=== PATIENT | male | born 1950 | race Caucasian/White ===

== ENCOUNTER 2022-12-09 11:08 | Inpatient (IN) ==
[2022-12-09] MEDS ORDERED: SODIUM CHLORIDE 0.9% 250 ML IV PRN (15:03)
[2022-12-09 15:33] LABS: Basophils # (auto) 0.05 K/uL (0-0.2); Basophils % (auto) 0.5 %; Eosinophils # (auto) 0.09 K/uL (0-0.50); Eosinophils % (auto) 0.9 %; Hemoglobin 8.3 g/dl (14.0-18.0); Immature Granulocytes # (auto) 0.04 K/uL (0.01-0.20); Immature Granulocytes % (auto) 0.4 %; Lymphocytes # (auto) 0.84 K/uL (1.2-3.4); Lymphocytes % (auto) 8.3 %; Mean Corpuscular Hemoglobin 28.2 pg (25.0-34.0); Mean Corpuscular Hgb Conc 31.9 g/dL (32.0-36.0); Mean Corpuscular Volume 88.4 fL (80.0-100.0); Mean Platelet Volume 12.4 fL (9.4-12.4); Monocytes # (auto) 0.75 K/uL (0.11-0.59); Monocytes % (auto) 7.4 %; Neutrophils # (auto) 8.34 K/uL (1.40-6.50); Neutrophils % (auto) 82.5 %; Platelet Count 122 K/uL (130-400); RDW Coefficient of Variation 15.4 % (11.5-14.5); RDW Standard Deviation 49.1 fL (36.4-46.3); Red Blood Count 2.94 M/uL (4.70-6.10); White Blood Count 10.11 K/ul (4.8-10.8)
--- NOTE | 2022-12-09 15:40 | History & Physical Report ---
Date of Service December 09, 2022 Assessment & Plan (1) Acute GI bleeding: Plan: Secondary to prednisone, Eliquis. Not completely clear why he continues to be more anemic if not taking these for over a week however. Pantoprazole IV drip Bright red blood per [facility] note although pt reports black stool FOB pending Consult gastroenterology (2) Acute blood loss anemia: Plan: Hgb q6h, Aim Hgb > 8 in setting of acute GI bleed Iron studies, B12, folate, retic count, LDH, haptoglobin with AM labs (3) Hematuria: Plan: 2 days of waking up with blood in front of underwear but not present on urination during the day - pt adamant this is not from his bowel UA at [facility] was positive for blood and RBCs No recent maloney cath UA + micro with reflex culture ?Paroxysmal nocturnal hematuria - will get LDH/haptoglobin/retic with AM labs (4) LV (left ventricular) mural thrombus: Plan: Reportedly no longer there on repeat TTE at [facility] on hold (5) HFrEF (heart failure with reduced ejection fraction): Plan: No longer on Entresto since his GI bleed Continue metoprolol succinate 25mg PO daily Slow IV fluids, CXR to assess fluid status, if getting hypoxic stop IV fluids (6) Gout: Plan: Prednisone and indomethacin on hold No active gout flare noted on exam - left achilles tendon erythema appears much more consistent with achilles tendonitis (7) Achilles tendinitis, left leg: Plan: ice as needed, avoid NSAIDs (8) CAD (coronary artery disease): Plan: Hx CABG ASA, Eliquis on hold due to acute GI bleed (9) Hypothyroidism: Plan: TSH with AM labs Continue levothyroxine 50mcg PO daily Plan VTE Prophylaxis - SCDs Diet - NPO Disposition - admit to PCU Admission and Anticipated Discharge Date Admission Date: December 09, 2022 History of Present Illness Chief Complaint: GI bleed, shortness of breath, generalized weakness Primary Care Provider: NO PCP Leroy Donahue is a 72 year old male who presents as a direct admission from [facility] due to acute upper GI bleed. Planned transfer to [place] or [place] due to lack of gastroenterology coverage but given lack of beds at those institutions and 21 hours in [facility] without GI coverage I accepted the patient to [facility]. Initial symptoms started 2-3 weeks ago with increasing fatigue and shortness of breath after restarting Eliquis for an LV thrombus 4 weeks ago (November 01). He also started prednisone 3 weeks ago (November 20) for gout diagnosis of his left ankle and finger although this was not confirmed on aspiration of the joint. His left ankle which he refers to as gout incidentally appears much more consistent with Achilles tendonitis. 8 days ago his daughter encouraged him to go to the emergency room at [place] as he had become so weak he could hardly make it into her house. He was diagnosed with acute blood loss anemia with hemoglobin 6.2 and transfused 3 units of packed red blood cells while awaiting transfer to [facility] 48 hours later. He underwent EGD on December 03 (6 days ago) and was found to have mild gastritis with nonbleeding gastric ulcers per discharge summary although the EGD report was not provided with ER transfer paperwork to review. Per patient he required 2 further units of blood one prior and one after EGD. Eliquis supposedly reinitiated prior to discharge per discharge summary however not mentioned on his med list and patient does not remember getting this. He was discharged on December 06 (3 days ago) with a hemoglobin 8.0. Discharge instructions from patient say to continue Eliquis, aspirin and prednisone although the patient reports he appropriately did not take these. He was started on pantoprazole 40mg PO BID. Despite this he became more fatigued and short of breath therefore returned to the ER on December 08 (yesterday) with hemoglobin 6.9. He received 2 units packed red blood cells with repeat hemoglobin 7.7. He was treated with IV pantoprazole bolus and drip. On review of external med rec after history taken I note he was prescribed colchicine on December 07 but I am unclear if he actually took this. The patient denies any history of liver cirrhosis. Last colonoscopy by Fabricio queen 1 year ago - unknown results. Allergies Allergy/AdvReac Type Severity Reaction Status Date / Time clopidogrel [From Plavix] Allergy Unknown Verified 12/09/22 15:50 simvastatin [From Zocor] Allergy Unknown Verified 12/09/22 15:52 zocor AdvReac Mild Unknown Uncoded 12/09/22 15:52 Home Medications Medication Instructions Recorded Confirmed Type apixaban 5 mg tablet (Eliquis) 5 mg BID 12/09/22 12/09/22 History aspirin 81 mg tablet,delayed 81 mg PO DAILY 12/09/22 12/09/22 History release (Enteric Coated Aspirin) atorvastatin 40 mg tablet 40 mg PO HS 12/09/22 12/09/22 History cholecalciferol (vitamin D3) 250 500 mcg PO DAILY 12/09/22 12/09/22 History mcg (10,000 unit) tablet coconut oil 1,000 mg capsule 1,000 mg PO DAILY 12/09/22 12/09/22 History cyanocobalamin (vitamin B-12) 1,000 mcg PO DAILY 12/09/22 12/09/22 History 1,000 mcg capsule empagliflozin 10 mg tablet 10 mg PO DAILY 12/09/22 12/09/22 History (Jardiance) ferrous sulfate 325 mg (65 mg 325 mg PO Q OTHER DAY 12/09/22 12/09/22 History iron) capsule,extended release fluticasone propionate 50 2 spray intranasal DAILY 12/09/22 12/09/22 History mcg/actuation nasal spray,suspension furosemide 40 mg tablet 40 mg PO DAILY 12/09/22 12/09/22 History indomethacin 25 mg capsule 25 mg PO TID PRN Pain 12/09/22 12/09/22 History levothyroxine 50 mcg tablet 50 mcg PO DAILY 12/09/22 12/09/22 History (Synthroid) magnesium oxide 400 mg PO BID 12/09/22 12/09/22 History metoprolol succinate 25 mg 25 mg PO DAILY 12/09/22 12/09/22 History tablet,extended release 24 hr pantoprazole 40 mg tablet,delayed 40 mg PO DAILY 12/09/22 12/09/22 History release prednisone 20 mg tablet 20 mg PO DAILY 12/09/22 12/09/22 History sacubitril 24 mg-valsartan 26 mg 1 tab PO BID 12/09/22 12/09/22 History tablet (Entresto) Past Med/Surg History Medical History (Updated 12/09/22 @ 23:37 by Nikko Lange MD) Gout HFrEF (heart failure with reduced ejection fraction) Hypothyroidism Surgical History (Updated 12/09/22 @ 19:25 by Gerardo Ayala PA-C) AICD (automatic cardioverter/defibrillator) present H/O esophagogastroduodenoscopy S/P CABG (coronary artery bypass graft) Social History Smoking Status: Former smoker Smoking End Date: quit 29 years ago; Second Hand Exposure: No; Tobacco Cessation Education Requested by Patient: No Hx Alcohol Use: No Hx Substance Use: No Preferred Language: Lao Communication Ability: Effective Chief Security Officer Required: No Beliefs That Will Affect Care: None Current Living Situation: Alone Other Information That Helps Us Care for You: No Feels Safe at Home: Yes Safety Concerns: Feels Safe At This Time Assistive Devices: Denture - Upper Review of Systems Review of Systems: All systems reviewed & are unremarkable except as noted in HPI & below Hematuria without other urinary symptoms for the last 2 days Physical Exam Constitutional: well developed; + not well nourished and no acute distress Eyes: + conjunctival abnormality (pale) ENMT: external ear and nose normal, oropharynx normal Neck: trachea midline, no thyromegaly Respiratory: normal respiratory effort, lungs clear to auscultation Cardiovascular: RRR, no murmur, no edema Gastrointestinal (Abdomen): normal bowel sounds, soft, nontender, no hepatosplenomegaly Musculoskeletal: no cyanosis or clubbing, extremities motor strength 5/5 Left Achilles tendon erythema and pain Skin: no rashes, warm and dry + pallor Neurologic: moves all extremities and awake; not confused Psychiatric: A+Ox3, euthymic affect Results & Data Results & Data Vital Signs (Past 12 Hours) Vital Signs Temp Pulse Resp BP Pulse Ox O2 Del Method 12/09/22 14:37 36.3 C L 96 H 16 116/56 L 100 Room Air Laboratory Results Abnormal lab results 12/09/22 12/09/22 12/09/22 Range/Units 15:09 15:09 15:09 RBC 2.94 L (4.70-6.10) M/uL Hgb 8.3 L (14.0-18.0) g/dl Hct 26.0 L (42.0-52.0) % MCHC 31.9 L (32.0-36.0) g/dL RDW Std Deviation 49.1 H (36.4-46.3) fL RDW Coeff of Gena 15.4 H (11.5-14.5) % Plt Count 122 L (130-400) K/uL Neut # (Auto) 8.34 H (1.40-6.50) K/uL Lymph # (Auto) 0.84 L (1.2-3.4) K/uL Knott # (Auto) 0.75 H (0.11-0.59) K/uL Chloride 110 H (98-107) mmol/L BUN/Creatinine Ratio 25.0 H (10-20) Calcium 8.1 L (8.6-10.3) mg/dl Total Bilirubin 1.3 H (0.2-1.0) mg/dl Total Protein 5.2 L (6.0-8.3) gm/dl Albumin 3.1 L (3.4-5.0) gm/dl Globulin 2.1 L (2.5-4.0) gm/dl Crossmatch See Detail Code Status & VTE Plan Code Status All treatment outside of a cardiac arrest VTE Prophylaxis Plan VTE Prophylaxis will be ordered: Yes PG Care Time/CCT Total # of Minutes Spent Total Time Spent with Patient: Total time spent is greater than 50% in coordination of care (as documented) at patient's floor/unit and/or counseling patient: Coding Level of Care Code 20090 INT INP/OBS CARE 3/75MIN Diagnoses Acute GI bleeding K92.2 Acute blood loss anemia D62 Hematuria R31.9 LV (left ventricular) mural thrombus I51.3 HFrEF (heart failure with reduced ejection fraction) I50.20 Gout M10.9 Achilles tendinitis, left leg M76.62 CAD (coronary artery disease) I25.10 Hypothyroidism E03.9
[2022-12-09 15:50] LABS: Albumin Globulin Ratio 1.5 (0.9-2); Albumin Level 3.1 gm/dl (3.4-5.0); Bilirubin,Total 1.3 mg/dl (0.2-1.0); Calcium 8.1 mg/dl (8.6-10.3); Creatinine Clr Calc Pharmacy 84.5 ml/min; Est GFR (African American) 95.3 ml/min; Est GFR (Non-African American) 82.2 ml/min; Globulin 2.1 gm/dl (2.5-4.0); Magnesium 1.8 mg/dl (1.7-2.4); Phosphorus 3.1 mg/dl (2.5-4.9); Potassium 3.6 mmol/L (3.5-5.1); Total Protein 5.2 gm/dl (6.0-8.3)
[2022-12-09] MEDS ORDERED: Patient's HEIGHT &/or WEIGHT Needed SCH (16:00)
[2022-12-09 16:02] LABS: INR 1.1 (0.9-1.1); Partial Thromboplastin Ratio 0.9; Partial Thromboplastin Time 24.3 Seconds (21.0-31.0); Prothrombin Time 11.5 Seconds (9.0-12.0)
[2022-12-09] MEDS: LACTATED RINGER'S 1,000 ML IV SCH (16:55)
[2022-12-09] MEDS: PANTOprazole 40 MG in DEXTROSE 5% 100 ML IV SCH ×2 (16:55→20:51)
--- NOTE | 2022-12-09 19:36 | XRay Report ---
XR chest 1V portable HISTORY: 72 years-old Male CHF acute shortness of breath with possible heart failure COMPARISON: None TECHNIQUE: AP view of the chest FINDINGS: Cardiac silhouette is enlarged. Prior median sternotomy. Atherosclerosis of the aorta. Trace pleural effusions. Pulmonary vascular congestion. An electronic lead overlies left chest with battery pack in the lateral left chest wall. Bones appear grossly intact. IMPRESSION: Cardiomegaly with pulmonary vascular congestion and trace pleural effusions. ACT 112: Negative or not required by law. The above report was generated using voice recognition software. It may contain grammatical, syntax o r spelling errors. Electronically signed by: Shivam Conley M.D. 12/09/2022 7:35 PM
--- NOTE | 2022-12-09 19:39 | XRay Report ---
XR ankle LT min 3V routine HISTORY: 72 years-old Male requested by ortho, left achilles erythema COMPARISON: None TECHNIQUE: 3 views of the left ankle FINDINGS: Arterial calcifications. Moderate osteoarthritis. Moderate-sized enthesophytes of the calcaneus. Soft tissue thickening is noted within the region of the Achilles tendon. No acute fracture, dislocation or osseous erosions. IMPRESSION: 1. No acute osseous abnormality. 2. Enthesophytes of the calcaneus with soft tissue thickening noted within the region of the Achilles tendon. Correlate with patient history and physical exam findings in order to exclude tendinosis. ACT 112: Negative or not required by law. The above report was generated using voice recognition software. It may contain grammatical, syntax o r spelling errors. Electronically signed by: Shivam Conley M.D. 12/09/2022 7:37 PM
[2022-12-09] MEDS: ATORVASTATIN 40 MG TAB PO SCH (19:56)
--- NOTE | 2022-12-09 21:22 | Orthopedic Consultation ---
Date of Consultation December 09, 2022 Assessment & Plan (1) Achilles tendinitis, left leg: He has pain and tenderness to palpation directly along the Achilles tendon and the posterior aspect of his left ankle. This seems most consistent with Achilles tendinitis. 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 He denies any pain in his ankle joint currently. I would recommend Achilles tendon stretching and ice to help with his pain. I would normally also recommend anti-inflammatories, but he is unable to take these due to his GI bleed. No urgent orthopedic surgical intervention is required. He may weight-bear as tolerated on the left leg. He can follow-up on an outpatient basis as needed with [facility] (Dr. Bueno, Dr. Mirza). Orthopedics will sign off at this point. History of Present Illness Reason for Consultation: Left ankle pain Requesting Physician: Dr. Lange Attending Physician: Nikko Lange MD History of Present Illness Mr. Donahue is a 72-year-old male with left ankle pain. He states that he gets intermittent flareups of this pain about once a month for the past several years. He does have a history of gout in multiple other joints, and states that he is on gout medicines, but he does not know specifics of his medications. This recurrent pain is always in the posterior aspect of his left ankle. He does note that the first step of the day after sleep is usually quite painful for him. He is able to walk on this. He is currently admitted for a GI bleed. He has been transferred around to a few different hospitals over the past few days, but states that he was walking on this yesterday. He was just admitted to [facility] here today, and has not yet been out of bed yet today. Allergies Allergy/AdvReac Type Severity Reaction Status Date / Time clopidogrel [From Plavix] Allergy Unknown Verified 12/09/22 15:50 simvastatin [From Zocor] Allergy Unknown Verified 12/09/22 15:52 zocor AdvReac Mild Unknown Uncoded 12/09/22 15:52 Home Medications Medication Instructions Recorded Confirmed Type apixaban 5 mg tablet (Eliquis) 5 mg BID 12/09/22 12/09/22 History aspirin 81 mg tablet,delayed 81 mg PO DAILY 12/09/22 12/09/22 History release (Enteric Coated Aspirin) atorvastatin 40 mg tablet 40 mg PO HS 12/09/22 12/09/22 History cholecalciferol (vitamin D3) 250 500 mcg PO DAILY 12/09/22 12/09/22 History mcg (10,000 unit) tablet coconut oil 1,000 mg capsule 1,000 mg PO DAILY 12/09/22 12/09/22 History cyanocobalamin (vitamin B-12) 1,000 mcg PO DAILY 12/09/22 12/09/22 History 1,000 mcg capsule empagliflozin 10 mg tablet 10 mg PO DAILY 12/09/22 12/09/22 History (Jardiance) ferrous sulfate 325 mg (65 mg 325 mg PO Q OTHER DAY 12/09/22 12/09/22 History iron) capsule,extended release fluticasone propionate 50 2 spray intranasal DAILY 12/09/22 12/09/22 History mcg/actuation nasal spray,suspension furosemide 40 mg tablet 40 mg PO DAILY 12/09/22 12/09/22 History indomethacin 25 mg capsule 25 mg PO TID PRN Pain 12/09/22 12/09/22 History levothyroxine 50 mcg tablet 50 mcg PO DAILY 12/09/22 12/09/22 History (Synthroid) magnesium oxide 400 mg PO BID 12/09/22 12/09/22 History metoprolol succinate 25 mg 25 mg PO DAILY 12/09/22 12/09/22 History tablet,extended release 24 hr pantoprazole 40 mg tablet,delayed 40 mg PO DAILY 12/09/22 12/09/22 History release prednisone 20 mg tablet 20 mg PO DAILY 12/09/22 12/09/22 History sacubitril 24 mg-valsartan 26 mg 1 tab PO BID 12/09/22 12/09/22 History tablet (Entresto) Patient History Surgical History (Updated 12/09/22 @ 19:25 by Gerardo Ayala PA-C) AICD (automatic cardioverter/defibrillator) present H/O esophagogastroduodenoscopy S/P CABG (coronary artery bypass graft) Social History Smoking Status: Former smoker Smoking End Date: quit 29 years ago; Second Hand Exposure: No; Tobacco Cessation Education Requested by Patient: No Hx Alcohol Use: No Hx Substance Use: No Preferred Language: Macanese Communication Ability: Effective Donkey Doctor Required: No Beliefs That Will Affect Care: None Current Living Situation: Alone Other Information That Helps Us Care for You: No Feels Safe at Home: Yes Safety Concerns: Feels Safe At This Time Assistive Devices: Denture - Upper Physical Exam Physical Exam: Examination of the left ankle reveals no significant swelling or gross deformity. Specifically, no swelling around the ankle joint area. He does have some prominence over the medial malleolus that looks like it could be consistent with a gouty tophi. He denies any tenderness palpation in this area or along the anterior ankle joint line. All of his tenderness to palpation is directly along the Achilles tendon posteriorly. Minimal swelling and erythema over this area, no warmth. He does have reproduction of this pain with passive dorsiflexion of the ankle. Results & Data Vital Signs (Past 12 Hours) Vital Signs Temp Pulse Resp BP Pulse Ox O2 Del Method 12/09/22 19:47 37 C 101 H 20 118/58 L 97 Room Air 12/09/22 14:37 36.3 C L 96 H 16 116/56 L 100 Room Air Diagnostic Findings Left ankle x-rays obtained here today were independently interpreted by me. They show some scattered arthritis in the ankle joint and midfoot joints, but nothing terribly severe. There is a very small enthesophyte at the Achilles tendon insertion into the calcaneus, but no calcifications are seen along the Achilles tendon itself. Small Delia's deformity. There is obvious peripheral vascular disease, with calcifications seen in all 3 of his major ankle arteries.
[2022-12-09 22:00] LABS: Hematocrit (blood only) 27.2 % (42.0-52.0); Hemoglobin 8.6 g/dl (14.0-18.0)
[2022-12-09 22:22] LABS: Appearance Urine Clear (Clear); Bacteria Urine Automated Negative (Negative); Bilirubin Urine Negative (Negative); Blood Urine Negative (Negative); Color Urine Yellow; Epithelial Cell Urine Auto 0-5 /lpf (0-5); Glucose Urine UA 3+ (Negative); Ketones Urine 1+ (Negative); Leukocyte Esterase Urine Trace (Negative); Nitrite Urine Positive (Negative); Protein Urine Trace (Negative); RBC Urine Automated 0-4 /hpf (0-4); Specific Gravity Urine 1.028 (1.000-1.030); Urobilinogen Urine Negative (Negative); pH Urine 5.5 (4.5-7.5)
[2022-12-10] MEDS: PANTOprazole 40 MG in DEXTROSE 5% 100 ML IV SCH ×5 (01:54→21:53)
[2022-12-10 03:22] LABS: BUN Creatinine Ratio 22.2 (10-20); Creatinine Clr Calc Pharmacy 86.4 ml/min; Est GFR (African American) 97.9 ml/min; Est GFR (Non-African American) 84.4 ml/min; Potassium 3.7 mmol/L (3.5-5.1)
[2022-12-10 03:38] LABS: Hematocrit (blood only) 24.3 % (42.0-52.0); Hemoglobin 7.7 g/dl (14.0-18.0); Mean Corpuscular Hemoglobin 28.2 pg (25.0-34.0); Mean Corpuscular Hgb Conc 31.7 g/dL (32.0-36.0); Mean Platelet Volume 12.8 fL (9.4-12.4); Platelet Count 120 K/uL (130-400); RDW Coefficient of Variation 15.7 % (11.5-14.5); Red Blood Count 2.73 M/uL (4.70-6.10); White Blood Count 8.78 K/ul (4.8-10.8)
[2022-12-10 03:39] LABS: Basophils # (auto) 0.04 K/uL (0-0.2); Basophils % (auto) 0.5 %; Eosinophils # (auto) 0.11 K/uL (0-0.50); Eosinophils % (auto) 1.3 %; Immature Granulocytes # (auto) 0.05 K/uL (0.01-0.20); Immature Granulocytes % (auto) 0.6 %; Lymphocytes # (auto) 0.78 K/uL (1.2-3.4); Lymphocytes % (auto) 8.9 %; Monocytes # (auto) 0.73 K/uL (0.11-0.59); Monocytes % (auto) 8.3 %; Neutrophils # (auto) 7.07 K/uL (1.40-6.50); Neutrophils % (auto) 80.4 %; Poikilocytosis Present; Polychromasia 1+
[2022-12-10 03:43] LABS: Ferritin 41.4 ng/ml (8-388)
[2022-12-10] MEDS: LACTATED RINGER'S 1,000 ML IV SCH ×2 (03:50→18:29)
[2022-12-10] MEDS ORDERED: SODIUM CHLORIDE 0.9% 250 ML IV PRN (04:01)
[2022-12-10] MEDS: LEVOTHYROXINE SODIUM 50 MCG TABLET PO SCH (05:23)
[2022-12-10] MEDS: FLUTICASONE PROPIONATE NA SPR 16 GM BTL NAE SCH (07:58)
[2022-12-10] MEDS: METOPROLOL SUCC 25MG EXT REL TAB PO SCH (07:59)
[2022-12-10 09:21] LABS: Hematocrit (blood only) 26.8 % (42.0-52.0); Hemoglobin 8.7 g/dl (14.0-18.0)
--- NOTE | 2022-12-10 09:55 | Gastrointestinal Consultation ---
Date of Consultation December 10, 2022 Assessment & Plan (1) Anemia: (2) Acute blood loss anemia: (3) Melena: Plan Patient is a 72 y.o. male with a known history of PUD admitted with acute blood loss and anemia and melena. -NPO. -EGD today by Dr. Tripp for further evaluation. -Continue PPI ggt at 8mg/hr. -Continue supportive care. -Further recommendations will be made pending results of testing. Thank you for allowing us to participate in the care of this patient. If you have any questions or concerns, please do not hesitate to contact us. Supervising Physician Co-Signing Physician Notes Agree with KELLEY Middleton as above Abd: Soft, NT, ND, +BS Continue current therapy and supportive care Proceed with EGD now History of Present Illness Reason for Consultation: GIB Requesting Physician: Dr. Lange Attending Physician: Jame Morales History of Present Illness Patient is a 72 y.o. male with a history of CAD, CABG, LV thrombus and Gout admitted with acute blood loss anemia. He was prescribed Eliquis for the thrombus and Prednisone as well as Indomethacin for the gout. Endorses ASA use occasionally as well. These medications were discontinued one week ago at which time the GI bleeding began. He was admitted to [facility] in [place], [place] and had reportedly undergone an upper endoscopy with findings of non-bleeding gastric ulcers and gastritis. Has been prescribed PPI therapy but had returning symptoms of melena and was subsequently transferred from the ER at [facility] to [facility] due to lack of GI coverage. On arrival, he was found to have a H&H of 8.6/27.2 but did drop to 7.7/24.3. He was given 1 unit of PRBCs and repeat hemoglobin this morning was 8.7. Patient is NPO and has been started on a PPI ggt. Currently, he denies any abdominal pain, n/v, chest pain, palpitations, shortness of breath or overt GIB symptoms today. States he has not had a bm since admission. Allergies Allergy/AdvReac Type Severity Reaction Status Date / Time clopidogrel [From Plavix] Allergy Unknown Verified 12/09/22 15:50 simvastatin [From Zocor] AdvReac Unknown Verified 12/10/22 04:09 Home Medications Medication Instructions Recorded Confirmed Type apixaban 5 mg tablet (Eliquis) 5 mg BID 12/09/22 12/09/22 History aspirin 81 mg tablet,delayed 81 mg PO DAILY 12/09/22 12/09/22 History release (Enteric Coated Aspirin) atorvastatin 40 mg tablet 40 mg PO HS 12/09/22 12/09/22 History cholecalciferol (vitamin D3) 250 500 mcg PO DAILY 12/09/22 12/09/22 History mcg (10,000 unit) tablet coconut oil 1,000 mg capsule 1,000 mg PO DAILY 12/09/22 12/09/22 History cyanocobalamin (vitamin B-12) 1,000 mcg PO DAILY 12/09/22 12/09/22 History 1,000 mcg capsule empagliflozin 10 mg tablet 10 mg PO DAILY 12/09/22 12/09/22 History (Jardiance) ferrous sulfate 325 mg (65 mg 325 mg PO Q OTHER DAY 12/09/22 12/09/22 History iron) capsule,extended release fluticasone propionate 50 2 spray intranasal DAILY 12/09/22 12/09/22 History mcg/actuation nasal spray,suspension furosemide 40 mg tablet 40 mg PO DAILY 12/09/22 12/09/22 History indomethacin 25 mg capsule 25 mg PO TID PRN Pain 12/09/22 12/09/22 History levothyroxine 50 mcg tablet 50 mcg PO DAILY 12/09/22 12/09/22 History (Synthroid) magnesium oxide 400 mg PO BID 12/09/22 12/09/22 History metoprolol succinate 25 mg 25 mg PO DAILY 12/09/22 12/09/22 History tablet,extended release 24 hr pantoprazole 40 mg tablet,delayed 40 mg PO DAILY 12/09/22 12/09/22 History release prednisone 20 mg tablet 20 mg PO DAILY 12/09/22 12/09/22 History sacubitril 24 mg-valsartan 26 mg 1 tab PO BID 12/09/22 12/09/22 History tablet (Entresto) Patient History Medical History (Updated 12/10/22 @ 11:42 by Shamir Yeager MD) Encounter for pre-operative examination Gout HFrEF (heart failure with reduced ejection fraction) Hypothyroidism Surgical History AICD (automatic cardioverter/defibrillator) present H/O esophagogastroduodenoscopy S/P CABG (coronary artery bypass graft) Social History Smoking Status: Former smoker Smoking End Date: quit 29 years ago; Second Hand Exposure: No; Tobacco Cessation Education Requested by Patient: No Hx Alcohol Use: No Hx Substance Use: No Preferred Language: Armenian Communication Ability: Effective Dietary Assistant Required: No Beliefs That Will Affect Care: None Current Living Situation: Alone Other Information That Helps Us Care for You: No Feels Safe at Home: Yes Safety Concerns: Feels Safe At This Time Assistive Devices: Cane and Walker Review of Systems Constitutional: + fatigue Respiratory: as per Subjective / HPI Cardiovascular: as per Subjective / HPI Gastrointestinal: as per Subjective / HPI Physical Exam Constitutional: WD/WN, vitals as above Eyes: EOM intact bilaterally Neck: normal appearance Respiratory: normal respiratory effort, lungs clear to auscultation Cardiovascular: Rate/Rhythm: regular rate and regular rhythm Heart Sounds: no gallop and no murmur Gastrointestinal (Abdomen): normal bowel sounds, soft, nontender, no hepatosplenomegaly Inspection/Auscultation: abdomen not distended Musculoskeletal: Extremities: no cyanosis no lower extremity edema Skin: no rashes, warm and dry Neurologic: moves all extremities Psychiatric: A+Ox3, euthymic affect Results & Data Vital Signs (Past 12 Hours) Vital Signs Temp Pulse Pulse Resp BP BP Pulse Ox 12/10/22 08:35 36.8 C 91 H 18 154/65 H 97 12/10/22 08:52 86 12/10/22 08:38 91 H 18 154/65 H 97 12/10/22 06:22 36.8 C 12/10/22 06:20 123/64 12/10/22 05:50 36.8 C 133/72 12/10/22 05:35 37.0 C 97 H 16 123/62 99 12/10/22 05:15 37.1 C 84 16 119/63 98 12/10/22 03:18 36.7 C 100 H 16 149/71 H 99 12/09/22 22:30 100 H 12/09/22 22:30 37 C 87 20 114/53 L 97 O2 Del Method 12/10/22 08:35 12/10/22 08:52 12/10/22 08:38 Room Air 12/10/22 06:22 12/10/22 06:20 12/10/22 05:50 12/10/22 05:35 12/10/22 05:15 12/10/22 03:18 Room Air 12/09/22 22:30 12/09/22 22:30 Room Air Diagnostic Findings Laboratory Results WBC 8.78 K/ul (4.8-10.8) 12/10/22 02:47 RBC 2.73 M/uL (4.70-6.10) L 12/10/22 02:47 Hgb 8.7 g/dl (14.0-18.0) L 12/10/22 08:57 Hct 26.8 % (42.0-52.0) L 12/10/22 08:57 MCV 89.0 fL (80.0-100.0) 12/10/22 02:47 MCH 28.2 pg (25.0-34.0) 12/10/22 02:47 MCHC 31.7 g/dL (32.0-36.0) L 12/10/22 02:47 RDW Std Deviation 50.0 fL (36.4-46.3) H 12/10/22 02:47 RDW Coeff of Gena 15.7 % (11.5-14.5) H 12/10/22 02:47 Plt Count 120 K/uL (130-400) L 12/10/22 02:47 MPV 12.8 fL (9.4-12.4) H 12/10/22 02:47 Immature Gran % (Auto) 0.6 % 12/10/22 02:47 Neut % (Auto) 80.4 % 12/10/22 02:47 Lymph % (Auto) 8.9 % 12/10/22 02:47 [place] % (Auto) 8.3 % 12/10/22 02:47 Eos % (Auto) 1.3 % 12/10/22 02:47 Baso % (Auto) 0.5 % 12/10/22 02:47 Neut # (Auto) 7.07 K/uL (1.40-6.50) H 12/10/22 02:47 Lymph # (Auto) 0.78 K/uL (1.2-3.4) L 12/10/22 02:47 [place] # (Auto) 0.73 K/uL (0.11-0.59) H 12/10/22 02:47 Eos # (Auto) 0.11 K/uL (0-0.50) 12/10/22 02:47 Baso # (Auto) 0.04 K/uL (0-0.2) 12/10/22 02:47 Immature Gran # (Auto) 0.05 K/uL (0.01-0.20) 12/10/22 02:47 Polychromasia 1+ 12/10/22 02:47 Poikilocytosis Present 12/10/22 02:47 PT 11.5 Seconds (9.0-12.0) 12/09/22 15:09 INR 1.1 (0.9-1.1) 12/09/22 15:09 APTT 24.3 Seconds (21.0-31.0) 12/09/22 15:09 PTT Ratio 0.9 12/09/22 15:09 Sodium 138 mmol/L (136-145) 12/10/22 02:47 Potassium 3.7 mmol/L (3.5-5.1) 12/10/22 02:47 Chloride 111 mmol/L (98-107) H 12/10/22 02:47 Carbon Dioxide 24 mmol/L (21-32) 12/10/22 02:47 Anion Gap 3 (3-11) 12/10/22 02:47 BUN 20 mg/dl (6-23) 12/10/22 02:47 Creatinine 0.90 mg/dl (0.6-1.4) 12/10/22 02:47 Est Cr Clr Drug Dosing 86.4 ml/min 12/10/22 02:47 Est GFR ( Amer) 97.9 ml/min 12/10/22 02:47 Est GFR (Non-Af Amer) 84.4 ml/min 12/10/22 02:47 BUN/Creatinine Ratio 22.2 (10-20) H 12/10/22 02:47 Glucose 100 mg/dl (70-99(Fasting)) H 12/10/22 02:47 Calcium 8.0 mg/dl (8.6-10.3) L 12/10/22 02:47 Phosphorus 3.1 mg/dl (2.5-4.9) 12/09/22 15:09 Magnesium 1.8 mg/dl (1.7-2.4) 12/09/22 15:09 Iron 12 mcg/dl (35-175) L 12/10/22 02:47 TIBC 240 mcg/dl (250-450) L 12/10/22 02:47 Unsaturated IBC 228 mcg/dl (155-355) 12/10/22 02:47 Transferrin % Sat 5 % (20-50) L 12/10/22 02:47 Ferritin 41.4 ng/ml (8-388) 12/10/22 02:47 Total Bilirubin 1.3 mg/dl (0.2-1.0) H 12/09/22 15:09 AST 14 U/L (13-39) 12/09/22 15:09 ALT 11 U/L (7-52) 12/09/22 15:09 Alkaline Phosphatase 38 U/L (34-104) 12/09/22 15:09 Total Protein 5.2 gm/dl (6.0-8.3) L 12/09/22 15:09 Albumin 3.1 gm/dl (3.4-5.0) L 12/09/22 15:09 Globulin 2.1 gm/dl (2.5-4.0) L 12/09/22 15:09 Albumin/Globulin Ratio 1.5 (0.9-2) 12/09/22 15:09 Vitamin B12 710 pg/ml (180-914) 12/10/22 02:47 Folate 17.67 ng/ml (>5.38) 12/10/22 02:47 TSH 0.611 uIu/ml (0.300-4.500) 12/10/22 02:47 Urine Color Yellow 12/09/22 22:00 Urine Appearance Clear (Clear) 12/09/22 22:00 Urine pH 5.5 (4.5-7.5) 12/09/22 22:00 Ur Specific [place] 1.028 (1.000-1.030) 12/09/22 22:00 Urine Protein Trace (Negative) H 12/09/22 22:00 Urine Glucose (UA) 3+ (Negative) H 12/09/22 22:00 Urine Ketones 1+ (Negative) H 12/09/22 22:00 Urine Blood Negative (Negative) 12/09/22 22:00 Urine Nitrite Positive (Negative) A 12/09/22 22:00 Urine Bilirubin Negative (Negative) 12/09/22 22:00 Urine Urobilinogen Negative (Negative) 12/09/22 22:00 Ur Leukocyte Esterase Trace (Negative) H 12/09/22 22:00 Urine WBC (Auto) 10-30 /hpf (0-5) H 12/09/22 22:00 Urine RBC (Auto) 0-4 /hpf (0-4) 12/09/22 22:00 U Hyaline Cast (Auto) 1-5 /lpf (0-5) 12/09/22 22:00 U Epithel Cells (Auto) 0-5 /lpf (0-5) 12/09/22 22:00 Urine Bacteria (Auto) Negative (Negative) 12/09/22 22:00 Urine Yeast Not Reportable 12/09/22 22:00 Blood Type B Positive 12/09/22 15:09 Blood Type Recheck B Positive 12/09/22 16:13 Antibody Screen NEGATIVE 12/09/22 15:09 Crossmatch See Detail 12/09/22 15:09 Impressions Ankle X-Ray 12/09/22 18:38 XR ankle LT min 3V routine HISTORY: 72 years-old Male requested by ortho, left achilles erythema COMPARISON: None TECHNIQUE: 3 views of the left ankle FINDINGS: Arterial calcifications. Moderate osteoarthritis. Moderate-sized enthesophytes of the calcaneus. Soft tissue thickening is noted within the region of the Achilles tendon. No acute fracture, dislocation or osseous erosions. IMPRESSION: 1. No acute osseous abnormality. 2. Enthesophytes of the calcaneus with soft tissue thickening noted within the region of the Achilles tendon. Correlate with patient history and physical exam findings in order to exclude tendinosis. ACT 112: Negative or not required by law. The above report was generated using voice recognition software. It may contain grammatical, syntax or spelling errors. Electronically signed by: Shivam Conley M.D. 12/09/2022 7:37 PM Chest X-Ray 12/09/22 18:57 XR chest 1V portable HISTORY: 72 years-old Male CHF acute shortness of breath with possible heart failure COMPARISON: None TECHNIQUE: AP view of the chest FINDINGS: Cardiac silhouette is enlarged. Prior median sternotomy. Atherosclerosis of the aorta. Trace pleural effusions. Pulmonary vascular congestion. An electronic lead overlies left chest with battery pack in the lateral left chest wall. Bones appear grossly intact. IMPRESSION: Cardiomegaly with pulmonary vascular congestion and trace pleural effusions. ACT 112: Negative or not required by law. The above report was generated using voice recognition software. It may contain grammatical, syntax or spelling errors. Electronically signed by: Shivam Conley M.D. 12/09/2022 7:35 PM PG Care Time/CCT Total # of Minutes Spent Total Time Spent with Patient: Total time spent is greater than 50% in coordination of care (as documented) at patient's floor/unit and/or counseling patient: Coding Level of Care Code 57538 INT INP/OBS CARE 3/75MIN Diagnoses Anemia D64.9 Acute blood loss anemia D62 Melena K92.1
--- NOTE | 2022-12-10 11:25 | Anesthesiology Consultation ---
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 Consults Requested none History Surgery Operation Date: 12/10/22 18:15 Proposed Procedures p Esophagogastroduodenoscopy Dr Tripp - Damion Joseph Case, DO Height/Weight Height: 5 ft 11 in Weight: 97.9 kg Allergies Allergy/AdvReac Type Severity Reaction Status Date / Time clopidogrel [From Plavix] Allergy Unknown Verified 12/09/22 15:50 simvastatin [From Zocor] AdvReac Unknown Verified 12/10/22 04:09 Medications Home Medications Medication Instructions Recorded Confirmed Last Taken apixaban 5 mg tablet (Eliquis) 5 mg BID 12/09/22 12/09/22 11/29/22 aspirin 81 mg tablet,delayed 81 mg PO DAILY 12/09/22 12/09/22 11/29/22 release (Enteric Coated Aspirin) atorvastatin 40 mg tablet 40 mg PO HS 12/09/22 12/09/22 12/06/22 cholecalciferol (vitamin D3) 250 500 mcg PO DAILY 12/09/22 12/09/22 12/07/22 mcg (10,000 unit) tablet coconut oil 1,000 mg capsule 1,000 mg PO DAILY 12/09/22 12/09/22 12/07/22 cyanocobalamin (vitamin B-12) 1,000 mcg PO DAILY 12/09/22 12/09/22 12/07/22 1,000 mcg capsule empagliflozin 10 mg tablet 10 mg PO DAILY 12/09/22 12/09/22 12/07/22 (Jardiance) ferrous sulfate 325 mg (65 mg 325 mg PO Q OTHER DAY 12/09/22 12/09/22 11/29/22 iron) capsule,extended release fluticasone propionate 50 2 spray intranasal DAILY 12/09/22 12/09/22 11/29/22 mcg/actuation nasal spray,suspension furosemide 40 mg tablet 40 mg PO DAILY 12/09/22 12/09/22 11/29/22 indomethacin 25 mg capsule 25 mg PO TID PRN Pain 12/09/22 12/09/22 11/29/22 levothyroxine 50 mcg tablet 50 mcg PO DAILY 12/09/22 12/09/22 12/06/22 (Synthroid) magnesium oxide 400 mg PO BID 12/09/22 12/09/22 12/06/22 metoprolol succinate 25 mg 25 mg PO DAILY 12/09/22 12/09/22 12/06/22 tablet,extended release 24 hr pantoprazole 40 mg tablet,delayed 40 mg PO DAILY 12/09/22 12/09/22 12/09/22 release prednisone 20 mg tablet 20 mg PO DAILY 12/09/22 12/09/22 11/29/22 sacubitril 24 mg-valsartan 26 mg 1 tab PO BID 12/09/22 12/09/22 11/29/22 tablet (Entresto) Active Medications Generic Name Dose Route Start Last Admin Trade Name Liat PRN Reason Stop Dose Admin Atorvastatin Calcium 40 mg 12/09/22 21:00 12/09/22 19:56 Atorvastatin 40 Mg Tab PO 01/08/23 20:59 40 mg HS ROSEMARIE Administration Fluticasone Propionate 2 sprays 12/10/22 09:00 12/10/22 07:58 Fluticasone Propionate Na Spr 16 Gm Btl MARCIAL 01/09/23 08:59 Not Given DAILY ROSEMARIE Pantoprazole Sodium 40 mg/ 100 mls @ 20 mls/hr 12/09/22 16:00 12/10/22 07:03 Dextrose IV 01/08/23 15:59 8 mg/hr Q5H ROSEMARIE 20 mls/hr Administration 8 MG/HR Lactated Ringer's 1,000 mls @ 75 mls/hr 12/09/22 17:00 12/10/22 03:50 Lr IV 01/08/23 16:59 75 mls/hr .[id number] ROSEMARIE Administration Levothyroxine Sodium 50 mcg 12/10/22 06:30 12/10/22 05:23 Levothyroxine Sodium 50 Mcg Tablet PO 01/09/23 06:29 50 mcg DAILYBB ROSEMARIE Administration Metoprolol Succinate 25 mg 12/10/22 09:00 12/10/22 07:59 Metoprolol Succ 25mg Ext Rel Tab PO 01/09/23 08:59 25 mg DAILY ROSEMARIE Administration Past Medical History Medical History (Updated 12/10/22 @ 11:42 by Shamir Yeager MD) Encounter for pre-operative examination Gout HFrEF (heart failure with reduced ejection fraction) Hypothyroidism Past Surgical History Surgical History AICD (automatic cardioverter/defibrillator) present H/O esophagogastroduodenoscopy S/P CABG (coronary artery bypass graft) Social History Smoking Status: Former smoker Smoking End Date: quit 29 years ago Hx Alcohol Use: No Hx Substance Use: No substance use type: does not use Physical Exam Vital Signs Last Vital Signs Temp 36.8 C 12/10/22 08:35 Pulse 86 12/10/22 08:52 Resp 18 12/10/22 08:38 BP 154/65 H 12/10/22 08:38 Pulse Ox 97 12/10/22 08:38 O2 Del Method Room Air 12/10/22 08:38 Testing Laboratory Results 12/10/22 08:57 12/10/22 02:47 PT 11.5 Seconds (9.0-12.0) 12/09/22 15:09 INR 1.1 (0.9-1.1) 12/09/22 15:09 APTT 24.3 Seconds (21.0-31.0) 12/09/22 15:09 Urine Color Yellow 12/09/22 22:00 Urine Appearance Clear (Clear) 12/09/22 22:00 Urine pH 5.5 (4.5-7.5) 12/09/22 22:00 Ur Specific [place] 1.028 (1.000-1.030) 12/09/22 22:00 Urine Protein Trace (Negative) H 12/09/22 22:00 Urine Glucose (UA) 3+ (Negative) H 12/09/22 22:00 Urine Ketones 1+ (Negative) H 12/09/22 22:00 Urine Nitrite Positive (Negative) A 12/09/22 22:00 Ur Leukocyte Esterase Trace (Negative) H 12/09/22 22:00 Urine WBC (Auto) 10-30 /hpf (0-5) H 12/09/22 22:00 Urine RBC (Auto) 0-4 /hpf (0-4) 12/09/22 22:00 U Hyaline Cast (Auto) 1-5 /lpf (0-5) 12/09/22 22:00 U Epithel Cells (Auto) 0-5 /lpf (0-5) 12/09/22 22:00 Urine Bacteria (Auto) Negative (Negative) 12/09/22 22:00 Blood Type B Positive 12/09/22 15:09 Antibody Screen NEGATIVE 12/09/22 15:09 12/09/22 22:00 Urine Culture - Preliminary Urine,Clean Catch Pin-point growth present, reincubating. Electrocardiogram Date: 12/10/2210-Dec-2022 05:02:32 [facility] ROUTINE RETRIEVAL Sinus rhythm with 1st degree A-V block with frequent Premature ventricular complexes and Premature atrial complexes Possible Left atrial enlargement Left axis deviation Possible Anteroseptal infarct , age undetermined ST & T wave abnormality, consider lateral ischemia Abnormal ECG No previous ECGs available Chest X-Ray Date: 12/09/22 XR chest 1V portable HISTORY: 72 years-old Male CHF acute shortness of breath with possible heart failure COMPARISON: None TECHNIQUE: AP view of the chest FINDINGS: Cardiac silhouette is enlarged. Prior median sternotomy. Atherosclerosis of the aorta. Trace pleural effusions. Pulmonary vascular congestion. An electronic lead overlies left chest with battery pack in the lateral left chest wall. Bones appear grossly intact. IMPRESSION: Cardiomegaly with pulmonary vascular congestion and trace pleural effusions.
--- NOTE | 2022-12-10 11:30 | XCELERA ---
[id number]
--- NOTE | 2022-12-10 12:47 | Hospitalist Progress Note ---
Date of Service December 10, 2022 Assessment & Plan (1) Acute GI bleeding: Plan: Secondary to ? prednisone, Eliquis and Gout medications. Not completely clear why he continues to be more anemic if not taking these for over a week however. Pantoprazole IV drip Bright red blood per [place] note although pt reports black stool FOBT pending Gastroenterology planning on doing EGD today Continue to monitor H&H and will transfuse as necessary (2) Acute blood loss anemia: Plan: Aim Hgb > 8 in setting of acute GI bleed Per patient had a total of 8 unit transfusions between [facility] and here Iron studies, B12, folate, retic count, LDH, haptoglobin with AM labs (3) Hematuria: Plan: 2 days of waking up with blood in front of underwear but not present on urination during the day - pt adamant this is not from his bowel UA at [place] was positive for blood and RBCs No recent maloney cath UA + micro with reflex culture ?Paroxysmal nocturnal hematuria (4) LV (left ventricular) mural thrombus: Plan: Reportedly no longer there on repeat TTE at [facility] on hold (5) HFrEF (heart failure with reduced ejection fraction): Plan: No longer on Entresto since his GI bleed Continue metoprolol succinate 25mg PO daily Slow IV fluids 75/hr while NPO 94% on RA (6) Gout: Plan: Prednisone and indomethacin on hold No active gout flare noted on exam - 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 He denies any complaints currently. He has not had a BM yesterday or today thus far. He has been NPO for EGD today. Patient has had a total of 8 units of blood transfused over the past week. He also had a EGD last week in [place]. He states he had several colonoscopies and his most recent was 1 year ago. Review of Systems Review of Systems: Hematuria without other urinary symptoms for the last 2 days Reports of black/ bloody stools. No BM X 24 hours Patient denies any abdominal pain, chest pain, SOB, dyspnea or nausea or vomiting. Admits to taking 2 different antiinflammatory medications for his Gout. Physical Exam Constitutional: WD/WN, vitals as above Eyes: conjunctival pallor Neck: trachea midline, no thyromegaly Respiratory: normal respiratory effort, lungs clear to auscultation Cardiovascular: RRR, no murmur, no edema Extremities: no calf tenderness and no edema Skin: pale Neurologic: PERRL, EOMI, accommodation nl, no face palsy, no dysarthria Psychiatric: A+Ox3, euthymic affect Results & Data Results & Data Vital Signs (Past 12 Hours) Vital Signs Temp Pulse Pulse Resp BP BP Pulse Ox 12/10/22 08:35 36.8 C 91 H 18 154/65 H 97 12/10/22 08:52 86 12/10/22 08:38 91 H 18 154/65 H 97 12/10/22 06:22 36.8 C 12/10/22 06:20 123/64 12/10/22 05:50 36.8 C 133/72 12/10/22 05:35 37.0 C 97 H 16 123/62 99 12/10/22 05:15 37.1 C 84 16 119/63 98 12/10/22 03:18 36.7 C 100 H 16 149/71 H 99 O2 Del Method 12/10/22 08:35 12/10/22 08:52 12/10/22 08:38 Room Air 12/10/22 06:22 12/10/22 06:20 12/10/22 05:50 12/10/22 05:35 12/10/22 05:15 12/10/22 03:18 Room Air PG Care Time/CCT Total # of Minutes Spent Total Time Spent with Patient: Total time spent is greater than 50% in coordination of care (as documented) at patient's floor/unit and/or counseling patient: Coding Level of Care Code 27581 SUB INP/OBS CARE 2/35MIN Diagnoses Acute GI bleeding K92.2 Acute blood loss anemia D62 Hematuria R31.9 LV (left ventricular) mural thrombus I51.3 HFrEF (heart failure with reduced ejection fraction) I50.20 Gout M10.9 Achilles tendinitis, left leg M76.62 CAD (coronary artery disease) I25.10 Hypothyroidism E03.9
--- NOTE | 2022-12-10 12:59 | Electrocardiogram Report ---
Test Reason : Blood Pressure : / mmHG Vent. Rate : 090 BPM Atrial Rate : 090 BPM P-R Int : 222 ms QRS Dur : 120 ms QT Int : 404 ms P-R-T Axes : 071 -46 131 degrees QTc Int : 494 ms Sinus rhythm with 1st degree A-V block with frequent Premature ventricular complexes and Premature at rial complexes Possible Left atrial enlargement Left axis deviation Possible Anteroseptal infarct , age undetermined Abnormal ECG No previous ECGs available Confirmed by Timmy Waters ([id number]) on 12/10/2022 12:59:47 PM Referred By: Nikko Lange Confirmed By:Timmy Waters
[2022-12-10 15:47] LABS: Hematocrit (blood only) 28.4 % (42.0-52.0); Hemoglobin 9.1 g/dl (14.0-18.0)
[2022-12-10] MEDS ORDERED: PROPOFOL IV EMULSION 10 MG/ML 20 ML VIAL IV ONE (16:53)
[2022-12-10] MEDS ORDERED: LIDOCAINE 2% MPF LOCAL 5 ML VIAL ONE (16:53)
[2022-12-10] MEDS ORDERED: BENZOCAINE/TETRACAIN/BUTAM 50 APPLN/5 GM CAN EXT ONE (17:12)
--- NOTE | 2022-12-10 17:20 | GI REPORT ---
Patient Name: Leroy Donahue Procedure Date: 12/10/2022 4:58 PM Date of : 1950 Admit Type: Inpatient Age: 72 Gender: Male Attending MD: Damion Tripp DO, Procedure: Upper GI endoscopy Providers: Damion Tripp DO Referring MD: Jame Morales MD Indications: Acute post hemorrhagic anemia, Melena Medicines: Monitored Anesthesia Care Complications: No immediate complications. Estimated Blood Loss: Estimated blood loss: none. Procedure: Pre-Anesthesia Assessment: - Prior to the procedure, a History and Physical was performed, and patient medications and allergies were reviewed. The patient's tolerance of previous anesthesia was also reviewed. The risks and benefits of the procedure and the sedation options and risks were discussed with the patient. All questions were answered, and informed consent was obtained. Prior Anticoagulants: The patient has taken Eliquis (apixaban), last dose was 7 days prior to procedure. ASA Grade Assessment: IV - A patient with severe systemic disease that is a constant threat to life. After reviewing the risks and benefits, the patient was deemed in satisfactory condition to undergo the procedure. After obtaining informed consent, the endoscope was passed under direct vision. Throughout the procedure, the patient's blood pressure, pulse, and oxygen saturations were monitored continuously. The Endoscope was introduced through the mouth, and advanced to the second part of duodenum. The upper GI endoscopy was accomplished without difficulty. The patient tolerated the procedure well. Findings: One superficial esophageal ulcer with no bleeding and no stigmata of recent bleeding was found 30 cm from the incisors. The lesion was 4 mm in largest dimension. For hemostasis, one hemostatic clip was successfully placed (MR conditional). Clip supervisor home economics: [employer]. There was no bleeding at the end of the procedure. A small hiatal hernia was present. A single 5 mm angioectasia with bleeding was found in the gastric fundus. For hemostasis, two hemostatic clips were successfully placed (MR conditional). Clip supervisor home economics: [employer]. There was no bleeding at the end of the procedure. The examined duodenum was normal. Impression: - Esophageal ulcer with no bleeding and no stigmata of recent bleeding. Clip (MR conditional) was placed. Clip supervisor home economics: [employer]. - Small hiatal hernia. - A single bleeding angioectasia in the stomach. Clips (MR conditional) were placed. Clip supervisor home economics: [employer]. - Normal examined duodenum. - No specimens collected. Recommendation: - [facility] patient to [facility] for [facility] care. - Clear liquid diet. - Continue present medications. Damion Tripp, DO 12/10/2022 5:20:04 PM This report has been signed electronically. Note Initiated On: 12/10/2022 4:58 PM Number of Addenda: 0 I attest to the content of the Intraoperative Record and orders documented therein, exceptions below {[id number]}
--- NOTE | 2022-12-10 17:30 | Anesthesiology Progress Note ---
Date of Service December 10, 2022 Anesthesia Post Procedure Vital Signs Vital Signs: Temp Pulse Pulse Resp BP BP Pulse Ox 12/10/22 16:12 95 H 12/10/22 15:50 37 C 104 H 18 142/79 H 94 12/10/22 08:35 36.8 C 91 H 18 154/65 H 97 12/10/22 08:52 86 12/10/22 08:38 91 H 18 154/65 H 97 12/10/22 06:22 36.8 C 12/10/22 06:20 123/64 12/10/22 05:50 36.8 C 133/72 12/10/22 05:35 37.0 C 97 H 16 123/62 99 12/10/22 05:15 37.1 C 84 16 119/63 98 12/10/22 03:18 36.7 C 100 H 16 149/71 H 99 12/09/22 22:30 100 H 12/09/22 22:30 37 C 87 20 114/53 L 97 12/09/22 19:47 37 C 101 H 20 118/58 L 97 O2 Del Method 12/10/22 16:12 12/10/22 15:50 Room Air 12/10/22 08:35 12/10/22 08:52 12/10/22 08:38 Room Air 12/10/22 06:22 12/10/22 06:20 12/10/22 05:50 12/10/22 05:35 12/10/22 05:15 12/10/22 03:18 Room Air 12/09/22 22:30 12/09/22 22:30 Room Air 12/09/22 19:47 Room Air Pain Intensity Left Heel: Pain Intensity: 1 Transfer of Care Handoff Completed per policy Notes Mental Status: alert / awake / arousable Patient Amnestic to Procedure: Yes Nausea / Vomiting: adequately controlled Pain: adequately controlled Airway Patency, RR, SpO2: stable & adequate BP & HR: stable & adequate Hydration State: stable & adequate Anesthetic Complications: no major complications apparent and Pt Satisfied with anesthetic care
[2022-12-10] MEDS ORDERED: POTASSIUM CHLORIDE CRTAB 20 MEQ TABCR PO STA (19:27)
[2022-12-10] MEDS: MAGNESIUM SULFATE / D5W 1 GM/100 ML BAG IV SCH ×2 (19:47→21:53)
[2022-12-10] MEDS: ATORVASTATIN 40 MG TAB PO SCH (19:52)
[2022-12-10 21:31] LABS: Hematocrit (blood only) 29.8 % (42.0-52.0); Hemoglobin 9.5 g/dl (14.0-18.0)
[2022-12-10] MEDS: ACETAMINOPHEN 325 MG TAB PO PRN (23:44)
[2022-12-11] MEDS: PANTOprazole 40 MG in DEXTROSE 5% 100 ML IV SCH ×5 (02:14→22:42)
[2022-12-11 04:26] LABS: Hemoglobin 8.7 g/dl (14.0-18.0); Mean Corpuscular Hemoglobin 28.4 pg (25.0-34.0); Mean Corpuscular Hgb Conc 32.2 g/dL (32.0-36.0); Mean Corpuscular Volume 88.2 fL (80.0-100.0); Mean Platelet Volume 12.7 fL (9.4-12.4); Platelet Count 131 K/uL (130-400); RDW Coefficient of Variation 15.5 % (11.5-14.5); RDW Standard Deviation 49.4 fL (36.4-46.3); Red Blood Count 3.06 M/uL (4.70-6.10); White Blood Count 7.85 K/ul (4.8-10.8)
[2022-12-11] MEDS: LEVOTHYROXINE SODIUM 50 MCG TABLET PO SCH (05:34)
[2022-12-11] MEDS: METOPROLOL SUCC 25MG EXT REL TAB PO SCH (09:38)
[2022-12-11] MEDS: FLUTICASONE PROPIONATE NA SPR 16 GM BTL NAE SCH (09:39)
--- NOTE | 2022-12-11 10:01 | Gastroenterology Progress Note ---
Date of Service December 11, 2022 Assessment & Plan (1) Anemia: (2) Acute blood loss anemia: (3) Melena: Plan Patient is a 72 y.o. 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 -Clear liquid diet today and advance tomorrow as tolerated.. -Continue PPI ggt at 8mg/hr for 72 hours, then start Pantoprazole 40 mg BID. -Continue supportive care. Admission and Anticipated Discharge Date Admission Date: December 09, 2022 Subjective Patient reports he is feeling well today. Findings of esophageal ulcer and gastric AVM with bleeding status post hemostasis with Endoclip placement. No painful swallowing, abdominal pain or overt GIB sx. H&H 8.7/27.0 today. On a clear liquid diet and PPI ggt at this time. Review of Systems Constitutional: as per Subjective / HPI Gastrointestinal: as per Subjective / HPI Physical Exam Constitutional: WD/WN, vitals as above Eyes: EOM intact bilaterally Respiratory: normal respiratory effort, lungs clear to auscultation Cardiovascular: Rate/Rhythm: regular rate and regular rhythm Heart Sounds: no gallop and no murmur Gastrointestinal (Abdomen): normal bowel sounds, soft, nontender, no hepatosplenomegaly Inspection/Auscultation: abdomen not distended Musculoskeletal: Extremities: no cyanosis Skin: no rashes, warm and dry Neurologic: moves all extremities Psychiatric: A+Ox3, euthymic affect Results & Data Results & Data Vital Signs (Past 12 Hours) Vital Signs Temp Pulse Pulse Resp BP Pulse Ox O2 Del Method 12/11/22 09:57 81 12/11/22 07:44 36.6 C 67 18 151/72 H 97 Room Air 12/10/22 21:59 95 H 12/11/22 02:16 36.9 C 85 18 112/61 95 Room Air 12/10/22 23:09 38.2 C H 85 18 124/73 95 Room Air Laboratory Results Abnormal lab results 12/10/22 12/10/22 12/11/22 Range/Units 15:19 21:00 03:17 RBC 3.06 L (4.70-6.10) M/uL Hgb 9.1 L 9.5 L 8.7 L (14.0-18.0) g/dl Hct 28.4 L 29.8 L 27.0 L (42.0-52.0) % RDW Std Deviation 49.4 H (36.4-46.3) fL RDW Coeff of Gena 15.5 H (11.5-14.5) % MPV 12.7 H (9.4-12.4) fL PG Care Time/CCT Total # of Minutes Spent Total Time Spent with Patient: Total time spent is greater than 50% in coordination of care (as documented) at patient's floor/unit and/or counseling patient: Coding Level of Care Code 25405 SUB INP/OBS CARE 3/50MIN Diagnoses Anemia D64.9 Acute blood loss anemia D62 Melena K92.1
--- NOTE | 2022-12-11 12:24 | Hospitalist Progress Note ---
Date of Service December 11, 2022 Assessment & Plan (1) Acute GI bleeding: Plan: Secondary to ? prednisone, Eliquis and Gout medications. Not completely clear why he continues to be more anemic if not taking these for over a week however. Pantoprazole IV drip EGD 12/10 - esophageal ulcer and gastric AVM treated with clips Continue to monitor H&H and will transfuse as necessary (2) Acute blood loss anemia: Plan: Aim Hgb > 8 in setting of acute GI bleed Per patient had a total of 8 unit transfusions between [facility] and here Secondary to gastric AVM and Esophageal ulcer - clips placed (3) Hematuria: Plan: 2 days of waking up with blood in front of underwear but not present on urination during the day - pt adamant this is not from his bowel UA at [place] was positive for blood and RBCs No recent maloney cath UA + micro with reflex culture ?Paroxysmal nocturnal hematuria (4) LV (left ventricular) mural thrombus: Plan: Reportedly no longer there on repeat TTE at [facility] on hold (5) HFrEF (heart failure with reduced ejection fraction): Plan: No longer on Entresto since his GI bleed Continue metoprolol succinate 25mg PO daily Slow IV fluids 75/hr while NPO 94% on RA (6) Gout: Plan: Prednisone and indomethacin on hold secondary to UGIB No active gout flare noted on exam - 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 He denies any abdominal pain, dysphagia or N/V. S/P EGD 12/10- esophageal ulcer and gastric AVM with bleeding status post hemostasis with clips placed. H&H stable at 8.7/27.0 today. Tolerating a clear liquid diet and PPI drip (will need 72 hours of PPI gtt). Review of Systems Review of Systems: Hematuria without other urinary symptoms for the last 2 days Reports of black/ bloody stools. No BM X 24 hours Patient denies any abdominal pain, chest pain, SOB, dyspnea or nausea or vomiting. Admits to taking 2 different antiinflammatory medications for his Gout. Physical Exam Constitutional: WD/WN, vitals as above Neck: trachea midline, no thyromegaly Respiratory: normal respiratory effort, lungs clear to auscultation Cardiovascular: RRR, no murmur, no edema Extremities: no calf tenderness and no edema Gastrointestinal (Abdomen): normal bowel sounds, soft, nontender, no hepatosplenomegaly Neurologic: PERRL, EOMI, accommodation nl, no face palsy, no dysarthria Psychiatric: A+Ox3, euthymic affect Results & Data Results & Data Vital Signs (Past 12 Hours) Vital Signs Temp Pulse Pulse Resp BP Pulse Ox O2 Del Method 12/11/22 11:32 37.0 C 99 H 18 131/72 97 Room Air 12/11/22 09:57 81 12/11/22 07:44 36.6 C 67 18 151/72 H 97 Room Air 12/11/22 02:16 36.9 C 85 18 112/61 95 Room Air Laboratory Results Abnormal lab results 12/10/22 12/10/22 12/11/22 Range/Units 15:19 21:00 03:17 RBC 3.06 L (4.70-6.10) M/uL Hgb 9.1 L 9.5 L 8.7 L (14.0-18.0) g/dl Hct 28.4 L 29.8 L 27.0 L (42.0-52.0) % RDW Std Deviation 49.4 H (36.4-46.3) fL RDW Coeff of Gena 15.5 H (11.5-14.5) % MPV 12.7 H (9.4-12.4) fL PG Care Time/CCT Total # of Minutes Spent Total Time Spent with Patient: Total time spent is greater than 50% in coordination of care (as documented) at patient's floor/unit and/or counseling patient: Coding Level of Care Code 01025 SUB INP/OBS CARE 2/35MIN Diagnoses Acute GI bleeding K92.2 Acute blood loss anemia D62 Hematuria R31.9 LV (left ventricular) mural thrombus I51.3 HFrEF (heart failure with reduced ejection fraction) I50.20 Gout M10.9 Achilles tendinitis, left leg M76.62 CAD (coronary artery disease) I25.10 Hypothyroidism E03.9
[2022-12-11] MEDS: ATORVASTATIN 40 MG TAB PO SCH (19:45)
[2022-12-11] MEDS ORDERED: COUGH DROP (SUGAR FREE) LOZ 24 LOZ/1 BOX BUCCAL PRN (19:53)
[2022-12-12] MEDS: PANTOprazole 40 MG in DEXTROSE 5% 100 ML IV SCH ×5 (03:46→22:38)
[2022-12-12] MEDS: LEVOTHYROXINE SODIUM 50 MCG TABLET PO SCH (05:27)
[2022-12-12] MEDS: FLUTICASONE PROPIONATE NA SPR 16 GM BTL NAE SCH (07:53)
[2022-12-12] MEDS: METOPROLOL SUCC 25MG EXT REL TAB PO SCH (07:54)
[2022-12-12 08:30] LABS: Hemoglobin 8.9 g/dl (14.0-18.0); Mean Corpuscular Hemoglobin 28.1 pg (25.0-34.0); Mean Corpuscular Hgb Conc 31.8 g/dL (32.0-36.0); Mean Corpuscular Volume 88.3 fL (80.0-100.0); Mean Platelet Volume 13.5 fL (9.4-12.4); Platelet Count 131 K/uL (130-400); RDW Coefficient of Variation 15.4 % (11.5-14.5); RDW Standard Deviation 49.2 fL (36.4-46.3); Red Blood Count 3.17 M/uL (4.70-6.10); White Blood Count 8.59 K/ul (4.8-10.8)
--- NOTE | 2022-12-12 08:50 | Hospitalist Progress Note ---
Date of Service December 12, 2022 Assessment & Plan (1) Acute GI bleeding: Plan: Secondary to ? prednisone, Eliquis and Gout medications. Pantoprazole IV drip (need 72 hours- 12/13/22) then Protonix 40mg BID EGD 12/10 - esophageal ulcer and gastric AVM treated with clips Continue to monitor H&H and will transfuse as necessary (2) Acute blood loss anemia: Plan: Aim Hgb > 8 in setting of acute GI bleed Per patient had a total of 8 unit transfusions between [facility] and here Secondary to gastric AVM and Esophageal ulcer - clips placed (3) Hematuria: Plan: Urine culture with Coag neg staph No fever, sepsis, abdominal pains, back pains or any urine sxs repeat U/A (4) LV (left ventricular) mural thrombus: Plan: Reportedly no longer there on repeat TTE at [facility] on hold (5) HFrEF (heart failure with reduced ejection fraction): Plan: No longer on Entresto since his GI bleed Continue metoprolol succinate 25mg PO daily 95% on RA (6) Gout: Plan: Prednisone and indomethacin on hold secondary to UGIB No active gout flare noted on exam - 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 He states he ate regular food today and had a large black stool x 1. His urine finally came back Coag Neg Staph but he has no urine sxs, no sepsis , no fever, no abdominal or back pain,and no further hematuria. Review of Systems Review of Systems: Reports of black/ bloody stools. one dark BM x 1 today Patient denies any abdominal pain, chest pain, SOB, dyspnea or nausea or vomiting. Admits to taking 2 different antiinflammatory medications for his Gout. All other ROS negative unless stated + above Physical Exam Constitutional: WD/WN, vitals as above Neck: trachea midline, no thyromegaly Respiratory: normal respiratory effort, lungs clear to auscultation Cardiovascular: RRR, no murmur, no edema Extremities: no calf tenderness and no edema Gastrointestinal (Abdomen): normal bowel sounds, soft, nontender, no h epatosplenomegaly Skin: Pale Neurologic: PERRL, EOMI, accommodation nl, no face palsy, no dysarthria Psychiatric: A+Ox3, euthymic affect Results & Data Results & Data Vital Signs (Past 12 Hours) Vital Signs Temp Pulse Pulse Resp BP Pulse Ox O2 Del Method 12/12/22 08:12 36.5 C 77 18 110/62 99 Room Air 12/12/22 07:00 86 12/12/22 03:49 36.8 C 90 18 105/61 96 Room Air 12/11/22 21:58 86 12/11/22 23:05 37.5 C 88 20 137/68 95 Room Air Laboratory Results Abnormal lab results 12/12/22 12/12/22 Range/Units 07:28 12:30 RBC 3.17 L (4.70-6.10) M/uL Hgb 8.9 L (14.0-18.0) g/dl Hct 28.0 L (42.0-52.0) % MCHC 31.8 L (32.0-36.0) g/dL RDW Std Deviation 49.2 H (36.4-46.3) fL RDW Coeff of Gena 15.4 H (11.5-14.5) % MPV 13.5 H (9.4-12.4) fL Stool Occult Bld Scrn Positive A (Negative) PG Care Time/CCT Total # of Minutes Spent Total Time Spent with Patient: Total time spent is greater than 50% in coordination of care (as documented) at patient's floor/unit and/or counseling patient: Coding Level of Care Code 03997 SUB INP/OBS CARE 2/35MIN Diagnoses Acute GI bleeding K92.2 Acute blood loss anemia D62 Hematuria R31.9 LV (left ventricular) mural thrombus I51.3 HFrEF (heart failure with reduced ejection fraction) I50.20 Gout M10.9 Achilles tendinitis, left leg M76.62 CAD (coronary artery disease) I25.10 Hypothyroidism E03.9
--- NOTE | 2022-12-12 09:40 | Gastroenterology Progress Note ---
Date of Service December 12, 2022 Assessment & Plan (1) Anemia: (2) Acute blood loss anemia: (3) Melena: Plan Patient is a 72 y.o. 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 -Diet advanced. -Continue PPI ggt at 8mg/hr for 72 hours, then start Pantoprazole 40 mg BID. -Stable for discharge when GGT has completed from GI perspective. -GI sign off. Reconsult if any concerns for rebleeding. Otherwise outpt follow up in 1-2 weeks upon discharge. Admission and Anticipated Discharge Date Admission Date: December 09, 2022 Subjective Patient is doing well from a GI standpoint. No n/v, abdominal pain or overt GIB sx. H&H has stabilized. He continues PPI ggt. On clear liquid diet. Requests diet advancement. Review of Systems Constitutional: no problem reported Gastrointestinal: as per Subjective / HPI Physical Exam Constitutional: WD/WN, vitals as above Eyes: EOM intact bilaterally Respiratory: normal respiratory effort, lungs clear to auscultation Cardiovascular: Rate/Rhythm: regular rate and regular rhythm Heart Sounds: no gallop and no murmur Gastrointestinal (Abdomen): normal bowel sounds, soft, nontender, no hepatosplenomegaly Inspection/Auscultation: abdomen not distended Musculoskeletal: Extremities: no cyanosis Skin: no rashes, warm and dry Neurologic: moves all extremities Psychiatric: A+Ox3, euthymic affect Results & Data Results & Data Vital Signs (Past 12 Hours) Vital Signs Temp Pulse Pulse Resp BP Pulse Ox O2 Del Method 12/12/22 08:12 36.5 C 77 18 110/62 99 Room Air 12/12/22 07:00 86 12/12/22 03:49 36.8 C 90 18 105/61 96 Room Air 12/11/22 21:58 86 12/11/22 23:05 37.5 C 88 20 137/68 95 Room Air Laboratory Results Abnormal lab results 12/12/22 Range/Units 07:28 RBC 3.17 L (4.70-6.10) M/uL Hgb 8.9 L (14.0-18.0) g/dl Hct 28.0 L (42.0-52.0) % MCHC 31.8 L (32.0-36.0) g/dL RDW Std Deviation 49.2 H (36.4-46.3) fL RDW Coeff of Gena 15.4 H (11.5-14.5) % MPV 13.5 H (9.4-12.4) fL PG Care Time/CCT Total # of Minutes Spent Total Time Spent with Patient: Total time spent is greater than 50% in coordination of care (as documented) at patient's floor/unit and/or counseling patient: Coding Level of Care Code 90150 SUB INP/OBS CARE 3/50MIN Diagnoses Anemia D64.9 Acute blood loss anemia D62 Melena K92.1
[2022-12-12] MEDS ORDERED: VANCOMYCIN CONSULT ACTIVE PRN (14:21)
[2022-12-12 17:20] LABS: Appearance Urine Clear (Clear); Bacteria Urine Automated Negative (Negative); Bilirubin Urine Negative (Negative); Blood Urine Negative (Negative); Color Urine Yellow; Glucose Urine UA 1+ (Negative); Ketones Urine Negative (Negative); Leukocyte Esterase Urine 1+ (Negative); Nitrite Urine Positive (Negative); Protein Urine 1+ (Negative); RBC Urine Automated 0-4 /hpf (0-4); Specific Gravity Urine 1.009 (1.000-1.030); Urobilinogen Urine Negative (Negative)
[2022-12-12] MEDS: ATORVASTATIN 40 MG TAB PO SCH (20:44)
[2022-12-13] MEDS: ACETAMINOPHEN 325 MG TAB PO PRN ×2 (03:34→22:29)
[2022-12-13] MEDS: MELATONIN 3 MG TAB PO PRN ×2 (03:34→21:40)
[2022-12-13] MEDS: PANTOprazole 40 MG in DEXTROSE 5% 100 ML IV SCH ×3 (03:39→15:55)
[2022-12-13] MEDS: LEVOTHYROXINE SODIUM 50 MCG TABLET PO SCH (06:12)
[2022-12-13 07:43] LABS: Hematocrit (blood only) 27.2 % (42.0-52.0); Hemoglobin 8.7 g/dl (14.0-18.0); Mean Corpuscular Hemoglobin 28.3 pg (25.0-34.0); Mean Corpuscular Volume 88.6 fL (80.0-100.0); Mean Platelet Volume 13.4 fL (9.4-12.4); Platelet Count 139 K/uL (130-400); RDW Coefficient of Variation 15.4 % (11.5-14.5); RDW Standard Deviation 48.9 fL (36.4-46.3); Red Blood Count 3.07 M/uL (4.70-6.10); White Blood Count 9.63 K/ul (4.8-10.8)
[2022-12-13 08:01] LABS: BUN Creatinine Ratio 16.7 (10-20); Calcium 7.8 mg/dl (8.6-10.3); Creatinine Clr Calc Pharmacy 87.6 ml/min; Est GFR (African American) 97.9 ml/min; Est GFR (Non-African American) 84.4 ml/min; Potassium 3.6 mmol/L (3.5-5.1)
[2022-12-13] MEDS ORDERED: IRON SUCROSE 300 MG in SODIUM CHLORIDE 0.9% 250 ML IV ONE (09:00)
[2022-12-13] MEDS: FLUTICASONE PROPIONATE NA SPR 16 GM BTL NAE SCH (09:08)
[2022-12-13] MEDS: METOPROLOL SUCC 25MG EXT REL TAB PO SCH (09:08)
--- NOTE | 2022-12-13 12:57 | Discharge Summary ---
Date of Service December 13, 2022 Admission HPI Per Admitting Provider Leroy Donahue is a 72 year old male who presents as a direct admission from [place] [facility] due to acute upper GI bleed. Planned transfer to [place] or [place] due to lack of gastroenterology coverage but given lack of beds at those institutions and 21 hours in [place] [facility] without GI coverage I accepted the patient to [facility]. Initial symptoms started 2-3 weeks ago with increasing fatigue and shortness of breath after restarting Eliquis for an LV thrombus 4 weeks ago (November 01). He also started prednisone 3 weeks ago (November 20) for gout diagnosis of his left ankle and finger although this was not confirmed on aspiration of the joint. His left ankle which he refers to as gout incidentally appears much more consistent with Achilles tendonitis. 8 days ago his daughter encouraged him to go to the emergency room at [place] as he had become so weak he could hardly make it into her house. He was diagnosed with acute blood loss anemia with hemoglobin 6.2 and transfused 3 units of packed red blood cells while awaiting transfer to [facility] 48 hours later. He underwent EGD on December 03 (6 days ago) and was found to have mild gastritis with nonbleeding gastric ulcers per discharge summary although the EGD report was not provided with ER transfer paperwork to review. Per patient he required 2 further units of blood one prior and one after EGD. Eliquis supposedly reinitiated prior to discharge per discharge summary however not mentioned on his med list and patient does not remember getting this. He was discharged on December 06 (3 days ago) with a hemoglobin 8.0. Discharge instructions from patient say to continue Eliquis, aspirin and prednisone although the patient reports he appropriately did not take these. He was started on pantoprazole 40mg PO BID. Despite this he became more fatigued and short of breath therefore returned to the ER on December 08 (yesterday) with hemoglobin 6.9. He received 2 units packed red blood cells with repeat hemoglobin 7.7. He was treated with IV pantoprazole bolus and drip. On review of external med rec after history taken I note he was prescribed colchicine on December 07 but I am unclear if he actually took this. The patient denies any history of liver cirrhosis. Last colonoscopy by Fabricio queen 1 year ago - unknown results. Discharge Exam Constitutional WD/WN, vitals as above Neck trachea midline, no thyromegaly Respiratory normal respiratory effort, lungs clear to auscultation Cardiovascular RRR, no murmur, no edema Extremities: no calf tenderness and no edema Gastrointestinal (Abdomen) normal bowel sounds, soft, nontender, no hepatosplenomegaly Neurologic PERRL, EOMI, accommodation nl, no face palsy, no dysarthria Psychiatric A+Ox3, euthymic affect Discharge Data Allergies Allergy/AdvReac Type Severity Reaction Status Date / Time clopidogrel [From Plavix] Allergy Unknown Verified 12/09/22 15:50 simvastatin [From Zocor] AdvReac Unknown Verified 12/10/22 04:09 Consultations 12/09/22 16:51 Consult Gastroenterology Routine 12/09/22 22:10 HIM [Consult Health Information Management] Routine Procedures Performed Operation Date: 12/10/22 18:15 Actual Procedures p EGD Hemostasis - Damion Joseph Case, DO Hospital Course (1) Acute GI bleeding: Secondary to possibly prednisone, Eliquis and Gout medications. Pantoprazole IV drip (need 72 hours- 12/13/22) then Protonix 40mg BID EGD 12/10 - esophageal ulcer and gastric AVM treated with clips S/P Venofer 300mg IV infusion x 1 12/13/22 (2) Acute blood loss anemia: Secondary to gastric AVM and Esophageal ulcer - clips placed (3) Hematuria: Urine culture with Coag neg staph No fever, sepsis, abdominal pains, back pains or any urine sxs repeat U/A no infection (4) LV (left ventricular) mural thrombus: Reportedly no longer there on repeat TTE at [facility] on hold (5) HFrEF (heart failure with reduced ejection fraction): No longer on Entresto since his GI bleed Continue metoprolol succinate 25mg PO daily 95% on RA (6) Gout: Prednisone and indomethacin on hold secondary to UGIB No active gout flare noted on exam - 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 (7) Achilles tendinitis, left leg: ice as needed, avoid NSAIDs Ortho to follow up as outpatient (8) CAD (coronary artery disease): Hx CABG ASA, Eliquis on hold due to acute GI bleed (9) Hypothyroidism: TSH normal 0.611 Continue levothyroxine 50mcg PO daily Plan VTE Prophylaxis - SCDs Diet - clear liquid on PPI gtt until late afternoon 12/13/22 Discharge Plan Discharge Items Reason For Visit: UPPER GI BLEED Follow-up/Referrals: PCP,NO [Primary Care Provider] - Medications and DC Order Prescriptions: No Action atorvastatin 40 mg Tablet 40 mg PO HS aspirin [Enteric Coated Aspirin] 81 mg Tablet,Delayed Release (Dr/Ec) 81 mg PO DAILY cholecalciferol (vitamin D3) 250 mcg (10,000 unit) Tablet 500 mcg PO DAILY coconut oil 1,000 mg Capsule 1,000 mg PO DAILY cyanocobalamin (vitamin B-12) 1,000 mcg Capsule 1,000 mcg PO DAILY Eliquis 5 mg Tablet 5 mg BID Entresto 24-26 mg Tablet 1 tab PO BID ferrous sulfate 325 mg (65 mg iron) Capsule, Extended Release 325 mg PO Q OTHER DAY fluticasone propionate 50 mcg/actuation Riley,Suspension 2 spray INTRANASAL DAILY Rx Instructions: administer into each nostril furosemide 40 mg Tablet 40 mg PO DAILY indomethacin 25 mg Capsule 25 mg PO TID PRN (Reason: Pain) Rx Instructions: administer with food or milk Jardiance 10 mg Tablet 10 mg PO DAILY magnesium oxide 400 mg magnesium Tablet 400 mg PO BID metoprolol succinate 25 mg Tablet Extended Release 24 Hr 25 mg PO DAILY pantoprazole 40 mg Tablet,Delayed Release (Dr/Ec) 40 mg PO DAILY prednisone 20 mg Tablet 20 mg PO DAILY levothyroxine [Synthroid] 50 mcg Tablet 50 mcg PO DAILY Krames/Other Patient Handouts: Soft [place] Diet Dc Admission Data Admit Date/Time: 12/09/22 14:45 Attending Provider: Vivien Caceres Admit Provider: Nikko Lange Primary Care Provider: ELTON,ENEDELIA Other Providers: Damion Tripp Other Interventions: Discharge Summary Assessment (RN) Last Done: 12/10/22 17:39 Coding Diagnoses Acute GI bleeding K92.2 Acute blood loss anemia D62 Hematuria R31.9 LV (left ventricular) mural thrombus I51.3 HFrEF (heart failure with reduced ejection fraction) I50.20 Gout M10.9 Achilles tendinitis, left leg M76.62 CAD (coronary artery disease) I25.10 Hypothyroidism E03.9
--- NOTE | 2022-12-13 15:50 | Hospitalist Progress Note ---
Date of Service December 13, 2022 Assessment & Plan (1) Acute GI bleeding: Plan: Gastric AVM- with active bleeding and s/p clip placed along with esophageal ulcer with no active bleed and clips placed Secondary possibly to prednisone, Eliquis and Gout medications. Pantoprazole IV drip done this after noon and will start po PPI BID tonight Continue to monitor H&H and will transfuse as necessary PT eval and treat May need acute rehab (2) Acute blood loss anemia: Plan: Aim Hgb > 8 in setting of acute GI bleed Per patient had a total of 8 unit transfusions between [facility], none here Venofer given today, may repeat Venofer in AM Iron studies - Iron 12, TIBC 240, % saturation 5, and ferritin 41, B12 and folate normal (3) LV (left ventricular) mural thrombus: Plan: Reportedly no longer there on repeat TTE at [place] [facility] 12/10/22 EF 25-30% small apical thrombus-likely endothelialized at this point not likely to embolize as he was on anticoagulation for many months Eliquis on hold (4) HFrEF (heart failure with reduced ejection fraction): Plan: No longer on Entresto since his GI bleed Continue metoprolol succinate 25mg PO daily echo 12/10/22 EF 25-30% 95% on RA (5) Gout: Plan: Prednisone and indomethacin on hold No active gout flare noted on exam - changes of gouty arthropathy on hands, knees (6) Achilles tendinitis, left leg: Plan: ice as needed, avoid NSAIDs Ortho evaluated while here and to follow up as outpatient (7) CAD (coronary artery disease): Plan: Hx CABG ASA, Eliquis on hold due to acute GI bleed (8) Hypothyroidism: Plan: Chronic and stable Last TSH 0.611 Continue Levothyroxine 50mcg daily (9) Left leg pain: Plan: pain in left knee no calf tenderness but pain with dorsiflexion of left ankle (possibly secondary to the Achilles tendinitis) Will check Doppler left leg tonight will order arterial dopplers bilateral legs for tomorrow Admission and Anticipated Discharge Date Admission Date: December 09, 2022 Supervising Physician Co-Signing Physician Notes PA Supervision Note: I personally saw and examined the patient. I verified all britton points and agree with CHARMAINE English with the following exceptions and/or additions: S-patient seen in preparation for possible discharge today, but he was extremely weak. He does feel better than previous. No melena. He is eating. O- Vitals reviewed Gen: AAOx3, NAD, appears chronically ill, very pale HEENT: Anicteric sclerae, EOMI CV: RRR no mgr nl S1S2 Pulm: CTAB no wcr Abd: +BS soft NT ND no masses or hernias Ext: No edema, barely palpable DP pulses, trophic changes, all toes purplish in color Skin: No rashes, warm/dry, no hair on legs and feet Neuro: Full strength throughout A/Q-59-fach-old male here with acute blood loss anemia from GI bleeding in the setting of anticoagulation. Continue holding aspirin and Eliquis but can likely restart aspirin on discharge as hemoglobin remained stable Replace with IV Venofer today and tomorrow Continue physical therapy-plans for home with home health likely tomorrow Check arterial Dopplers given PAD and possible rest pain, with purplish toes and trophic changes of the legs and feet, barely palpable pedal pulses Subjective Patient is awake sitting up in bed. He states he is ready to go home. But he was much weaker today getting up and walking with his walker. Patient's son was at bedside and wants his father to stay another day to see if he gets stronger and to evaluate if he needs any home PT or acute rehab. He is tolerating a diet and has had no BM today. Patient was given Venofer infusion 300mg today Review of Systems Review of Systems: Reports of black/ bloody stools. one dark BM x 1 yesterday, no BM today Patient denies any abdominal pain, chest pain, SOB, dyspnea or nausea or vomiting. Complains of weakness and arthralgias All other ROS negative unless stated + above Physical Exam Constitutional: + ill appearing; not in distress Eyes: conjunctiva pallor Neck: trachea midline, no thyromegaly Respiratory: normal respiratory effort, lungs clear to auscultation Cardiovascular: RRR, no murmur, no edema Gastrointestinal (Abdomen): normal bowel sounds, soft, nontender, no he patosplenomegaly Skin: pale, but color improved from previous days Results & Data Results & Data Vital Signs (Past 12 Hours) Vital Signs Temp Pulse Pulse Resp BP Pulse Ox O2 Del Method 12/13/22 11:37 36.5 C 98 H 16 123/56 L 95 Room Air 12/13/22 07:38 36.5 C 99 H 18 134/74 97 Room Air 12/13/22 07:00 87 PG Care Time/CCT Total # of Minutes Spent Total Time Spent with Patient: Total time spent is greater than 50% in coordination of care (as documented) at patient's floor/unit and/or counseling patient: Coding Level of Care Code 57087 SUB INP/OBS CARE 3/50MIN Diagnoses Acute GI bleeding K92.2 Acute blood loss anemia D62 LV (left ventricular) mural thrombus I51.3 HFrEF (heart failure with reduced ejection fraction) I50.20 Gout M10.9 Achilles tendinitis, left leg M76.62 CAD (coronary artery disease) I25.10 Hypothyroidism E03.9 Left leg pain M79.605
[2022-12-13 16:58] LABS: Hematocrit (blood only) 30.3 % (42.0-52.0); Hemoglobin 9.4 g/dl (14.0-18.0); Mean Corpuscular Volume 90.2 fL (80.0-100.0); Mean Platelet Volume 12.9 fL (9.4-12.4); Platelet Count 162 K/uL (130-400); RDW Coefficient of Variation 15.5 % (11.5-14.5); RDW Standard Deviation 50.6 fL (36.4-46.3); Red Blood Count 3.36 M/uL (4.70-6.10); White Blood Count 9.42 K/ul (4.8-10.8)
[2022-12-13 17:08] LABS: BUN Creatinine Ratio 17.2 (10-20); Calcium 8.1 mg/dl (8.6-10.3); Creatinine Clr Calc Pharmacy 90.6 ml/min; Est GFR (African American) 99.2 ml/min; Est GFR (Non-African American) 85.6 ml/min; Potassium 3.6 mmol/L (3.5-5.1)
--- NOTE | 2022-12-13 20:51 | Ultrasound Report ---
ULTRASOUND LEFT LOWER EXTREMITY VENOUS CLINICAL HISTORY: Left leg pain. COMPARISON STUDY: No priors. TECHNIQUE: Real-time, grayscale, and color Doppler sonography of the deep veins of the left lower ext remity was performed from the inguinal crease to the calf. Compression and augmentation were utilized . FINDINGS: There is nonocclusive deep venous thrombosis identified in the proximal to mid portions of the superficial femoral vein and the popliteal vein. Deep venous thrombosis is also seen in the calf within the posterior tibial and peroneal veins. The common femoral vein and the distal portion of the superficial femoral vein are patent and normally compressible. The greater saphenous vein and the pr ofunda femoris vein at the junction with the common femoral vein are clear. IMPRESSION: Left lower extremity deep venous thrombosis as above. ACT 112: Negative or not required by law. Electronically signed by: Hitesh Zheng M.D. 12/13/2022 8:48 PM
[2022-12-13] MEDS: PANTOprazole 40 MG TAB PO SCH (21:38)
[2022-12-13] MEDS: ATORVASTATIN 40 MG TAB PO SCH (21:38)
[2022-12-14] MEDS ORDERED: oxyCODONE/ACETAMINOPHEN 5mg/325mg TAB PO STA (01:21)
[2022-12-14] MEDS ORDERED: MoRPHine SULFATE 2 MG/ML CARP IV STA (02:38)
[2022-12-14] MEDS: LEVOTHYROXINE SODIUM 50 MCG TABLET PO SCH (05:47)
[2022-12-14] MEDS: DICLOFENAC SOD 1% GEL 100 GM TUBE EXT SCH ×3 (05:50→20:57)
--- NOTE | 2022-12-14 07:18 | Ultrasound Report ---
US arterial duplex bilateral lower extremity CLINICAL HISTORY: claudication. COMPARISON STUDY: None. FINDINGS: Near diffuse calcified plaque seen throughout the bilateral lower extremity arterial system s. There are low velocity monophasic waveforms seen throughout the bilateral lower extremity arterial systems consistent with diffuse atherosclerotic disease as well as suggestion of upstream stenosis i nvolving the aorta/iliac locations. Scattered areas of no flow identified within the distal right sup erficial femoral artery with reconstitution of low velocity flow within the right popliteal artery. N o flow identified within the distal right posterior tibial artery, mid to distal right peroneal arter y, proximal to mid left posterior tibial artery, and distal left peroneal artery. Trace flow identifi ed within the distal left superficial femoral artery which may represent a collateral vessel rather t summers the superficial femoral artery. The dorsalis pedis arteries appear patent. IMPRESSION: 1. There are low velocity monophasic waveforms seen throughout the bilateral lower extremity arterial systems consistent with diffuse atherosclerotic disease as well as suggestion of upstream stenosis i nvolving the aorta/iliac locations. 2. Focal occlusion within the distal right superficial femoral artery with reconstitution of flow at the popliteal artery. There is also trace flow identified within the distal left superficial femoral artery which may represent a collateral vessel rather than the superficial femoral artery. 3. Multifocal areas of stenosis within the bilateral calf vessels as described above. ACT 112: Negative or not required by law. Electronically signed by: Juanpablo Faulkner M.D. 12/14/2022 7:16 AM
[2022-12-14 07:49] LABS: Hematocrit (blood only) 28.7 % (42.0-52.0); Hemoglobin 8.8 g/dl (14.0-18.0); Mean Corpuscular Hemoglobin 27.6 pg (25.0-34.0); Mean Corpuscular Hgb Conc 30.7 g/dL (32.0-36.0); Mean Platelet Volume 13.7 fL (9.4-12.4); Platelet Count 159 K/uL (130-400); RDW Coefficient of Variation 15.5 % (11.5-14.5); RDW Standard Deviation 50.9 fL (36.4-46.3); Red Blood Count 3.19 M/uL (4.70-6.10); White Blood Count 9.16 K/ul (4.8-10.8)
[2022-12-14 08:03] LABS: BUN Creatinine Ratio 17.6 (10-20); Calcium 8.3 mg/dl (8.6-10.3); Creatinine Clr Calc Pharmacy 86.3 ml/min; Est GFR (African American) 96.6 ml/min; Est GFR (Non-African American) 83.3 ml/min; Magnesium 1.5 mg/dl (1.7-2.4); Potassium 3.8 mmol/L (3.5-5.1)
[2022-12-14] MEDS: PANTOprazole 40 MG TAB PO SCH ×2 (08:09→20:57)
[2022-12-14] MEDS: FLUTICASONE PROPIONATE NA SPR 16 GM BTL NAE SCH ×2 (08:09→08:10)
[2022-12-14] MEDS ORDERED: IRON SUCROSE 300 MG in SODIUM CHLORIDE 0.9% 250 ML IV ONE (09:00)
[2022-12-14] MEDS ORDERED: Heparin IV Adult Wt-Based Standard *NO* Bolus Protocol IV SCH (09:03)
[2022-12-14] MEDS: METOPROLOL SUCC 25MG EXT REL TAB PO SCH (09:31)
[2022-12-14] MEDS: HEPARIN SODIUM/DEXTROSE 25,000 UNITS/500 ML BAG IV SCH (10:07)
[2022-12-14] MEDS: MAGNESIUM SULFATE / D5W 1 GM/100 ML BAG IV SCH ×3 (11:05→15:13)
[2022-12-14 11:21] LABS: Basophils # (auto) 0.07 K/uL (0-0.2); Basophils % (auto) 0.7 %; Eosinophils # (auto) 0.07 K/uL (0-0.50); Eosinophils % (auto) 0.7 %; Hemoglobin 8.8 g/dl (14.0-18.0); Immature Granulocytes # (auto) 0.05 K/uL (0.01-0.20); Immature Granulocytes % (auto) 0.5 %; Lymphocytes # (auto) 0.62 K/uL (1.2-3.4); Lymphocytes % (auto) 6.5 %; Mean Corpuscular Hemoglobin 27.7 pg (25.0-34.0); Mean Corpuscular Hgb Conc 31.4 g/dL (32.0-36.0); Mean Corpuscular Volume 88.1 fL (80.0-100.0); Mean Platelet Volume 13.8 fL (9.4-12.4); Monocytes % (auto) 8.3 %; Neutrophils # (auto) 7.99 K/uL (1.40-6.50); Neutrophils % (auto) 83.3 %; Platelet Count 168 K/uL (130-400); RDW Coefficient of Variation 15.6 % (11.5-14.5); RDW Standard Deviation 50.6 fL (36.4-46.3); Red Blood Count 3.18 M/uL (4.70-6.10)
[2022-12-14 11:29] LABS: INR 1.2 (0.9-1.1); Partial Thromboplastin Ratio 1.3; Partial Thromboplastin Time 35.4 Seconds (21.0-31.0); Prothrombin Time 13.4 Seconds (9.0-12.0)
--- NOTE | 2022-12-14 16:47 | Hospitalist Progress Note ---
Date of Service December 14, 2022 Assessment & Plan (1) Acute GI bleeding: Plan: Gastric AVM- with active bleeding and s/p clip placed along with esophageal ulcer with no active bleed and clips placed Secondary possibly to prednisone, Eliquis and Gout medications. Pantoprazole IV drip done 12/13/22 Continue po PPI BID Continue to monitor H&H and will transfuse as necessary Continue to monitor stools for any evidence of active GI bleeding PT eval and treat May need acute rehab (2) Acute blood loss anemia: Plan: Aim Hgb > 8 in setting of acute GI bleed Per patient had a total of 8 unit transfusions between [facility], none here Venofer given 12/13 and 12/14 Iron studies - Iron 12, TIBC 240, % saturation 5, and ferritin 41, B12 and folate normal (3) DVT (deep venous thrombosis): Plan: Venous Doppler with DVT LLE Spoke with GI CASHIER HOST/HOSTESS Chelsi Solano who advised ok for Heparin drip Will continue to closely monitor H&H and for any evidence of any active GI bleeding No vascular service here this week (for possible IVC filter) Spoke with IR and they do not place IVC filters (4) LV (left ventricular) mural thrombus: Plan: Reportedly no longer there on repeat TTE at [place] Echo 12/10/22 EF 25-30% small apical thrombus-likely endothelialized at this point not likely to embolize as he was on anticoagulation for many months Eliquis on hold (Now on Heparin gtt for acute DVT left leg) (5) HFrEF (heart failure with reduced ejection fraction): Plan: No longer on Entresto since his GI bleed Continue metoprolol succinate 25mg PO daily echo 12/10/22 EF 25-30% 97% on RA (6) Gout: Plan: Prednisone and indomethacin on hold No active gout flare noted on exam - changes of gouty arthropathy on hands, knees (7) Achilles tendinitis, left leg: Plan: ice as needed, avoid NSAIDs Ortho evaluated while here and to follow up as outpatient (8) CAD (coronary artery disease): Plan: Hx CABG ASA, Eliquis on hold due to acute GI bleed (9) Hypothyroidism: Plan: Chronic and stable Last TSH 0.611 Continue Levothyroxine 50mcg daily (10) Hypomagnesemia: Plan: - Replaced with IV magnesium 3 bags - Per patient he is on oral magnesium daily as outpatient - Repeat Mg in AM - Restart Mag Ox 400mg BID tomorrow (11) PAD (peripheral artery disease): Plan: With severe PAD noted on arterial Dopplers With trophic changes of the legs Needs vascular follow-up as an outpatient No acute limb ischemia or wounds/Ulcers Admission and Anticipated Discharge Date Admission Date: December 09, 2022 Supervising Physician Co-Signing Physician Notes PA Supervision Note: I did not personally see or examine the patient today, but I verified all britton points of CHARMAINE English's assessment and plan with the following exceptions/additions: None Subjective Patient is awake sitting up in bed. He is complaining today of right knee pain. He has not had a BM yesterday or today thus far. Last night patient had left knee pain and had a Doppler revealing DVT Left calf. Discussed with GI, and they were ok with starting Heparin drip and watching patient closely. Also had bilateral leg pain and felt had claudication component with ? PAD and also ordered an arterial studies bilateral legs. Review of Systems Review of Systems: Reports of black/ bloody stools. one dark BM x 1 12/12, no BM yesterday or today Patient denies any abdominal pain, chest pain, SOB, dyspnea or nausea or vomiting. Complains of weakness and right knee pain All other ROS negative unless stated + above Physical Exam Constitutional: + ill appearing and + thin Eyes: appears uncomfortable, he states his right knee hurts Neck: trachea midline, no thyromegaly Respiratory: normal respiratory effort, lungs clear to auscultation Cardiovascular: RRR, no murmur, no edema Gastrointestinal (Abdomen): normal bowel sounds, soft, nontender, no hepatosplenomegaly Musculoskeletal: Arthritis changes knees bilaterally. Feet are elevated in bed and are not purple as they were yesterday Left Achilles less inflamed today compared to yesterday DP pulses palpable bilaterally but decreased Results & Data Results & Data Vital Signs (Past 12 Hours) Vital Signs Temp Pulse Pulse Resp BP Pulse Ox O2 Del Method 12/14/22 16:00 36.8 C 86 18 131/66 97 Room Air 12/14/22 14:46 99 H 12/14/22 11:00 36.8 C 86 18 141/89 H 98 Room Air 12/14/22 07:49 36.5 C 77 115/62 97 Room Air 12/14/22 07:33 86 Laboratory Results Abnormal lab results 12/13/22 12/13/22 12/14/22 Range/Units 16:31 16:31 07:23 RBC 3.36 L 3.19 L (4.70-6.10) M/uL Hgb 9.4 L 8.8 L (14.0-18.0) g/dl Hct 30.3 L 28.7 L (42.0-52.0) % MCHC 31.0 L 30.7 L (32.0-36.0) g/dL RDW Std Deviation 50.6 H 50.9 H (36.4-46.3) fL RDW Coeff of Gena 15.5 H 15.5 H (11.5-14.5) % MPV 12.9 H 13.7 H (9.4-12.4) fL Neut # (Auto) (1.40-6.50) K/uL Lymph # (Auto) (1.2-3.4) K/uL [place] # (Auto) (0.11-0.59) K/uL PT (9.0-12.0) Seconds INR (0.9-1.1) APTT (21.0-31.0) Seconds Glucose 137 H (70-99(Fasting)) mg/dl Calcium 8.1 L (8.6-10.3) mg/dl Magnesium (1.7-2.4) mg/dl 12/14/22 12/14/22 12/14/22 Range/Units 07:23 09:57 09:57 RBC 3.18 L (4.70-6.10) M/uL Hgb 8.8 L (14.0-18.0) g/dl Hct 28.0 L (42.0-52.0) % MCHC 31.4 L (32.0-36.0) g/dL RDW Std Deviation 50.6 H (36.4-46.3) fL RDW Coeff of Gena 15.6 H (11.5-14.5) % MPV 13.8 H (9.4-12.4) fL Neut # (Auto) 7.99 H (1.40-6.50) K/uL Lymph # (Auto) 0.62 L (1.2-3.4) K/uL [place] # (Auto) 0.80 H (0.11-0.59) K/uL PT 13.4 H (9.0-12.0) Seconds INR 1.2 H (0.9-1.1) APTT 35.4 H (21.0-31.0) Seconds Glucose 106 H (70-99(Fasting)) mg/dl Calcium 8.3 L (8.6-10.3) mg/dl Magnesium 1.5 L (1.7-2.4) mg/dl Diagnostic Findings Venous Doppler Study 12/13/22 17:54 ULTRASOUND LEFT LOWER EXTREMITY VENOUS CLINICAL HISTORY: Left leg pain. COMPARISON STUDY: No priors. TECHNIQUE: Real-time, grayscale, and color Doppler sonography of the deep veins of the left lower extremity was performed from the inguinal crease to the calf. Compression and augmentation were utilized. FINDINGS: There is nonocclusive deep venous thrombosis identified in the proximal to mid portions of the superficial femoral vein and the popliteal vein. Deep venous thrombosis is also seen in the calf within the posterior tibial and peroneal veins. The common femoral vein and the distal portion of the superficial femoral vein are patent and normally compressible. The greater saphenous vein and the profunda femoris vein at the junction with the common femoral vein are clear. IMPRESSION: Left lower extremity deep venous thrombosis as above. ACT 112: Negative or not required by law. Electronically signed by: Hitesh Zheng M.D. 12/13/2022 8:48 PM Duplex Scan Lower Extremity Artery 12/13/22 19:10 US arterial duplex bilateral lower extremity CLINICAL HISTORY: claudication. COMPARISON STUDY: None. FINDINGS: Near diffuse calcified plaque seen throughout the bilateral lower extremity arterial systems. There are low velocity monophasic waveforms seen throughout the bilateral lower extremity arterial systems consistent with diffuse atherosclerotic disease as well as suggestion of upstream stenosis involving the aorta/iliac locations. Scattered areas of no flow identified within the distal right superficial femoral artery with reconstitution of low velocity flow within the right popliteal artery. No flow identified within the distal right posterior tibial artery, mid to distal right peroneal artery, proximal to mid left posterior tibial artery, and distal left peroneal artery. Trace flow identified within the distal left superficial femoral artery which may represent a collateral vessel rather than the superficial femoral artery. The dorsalis pedis arteries appear patent. IMPRESSION: 1. There are low velocity monophasic waveforms seen throughout the bilateral lower extremity arterial systems consistent with diffuse atherosclerotic disease as well as suggestion of upstream stenosis involving the aorta/iliac locations. 2. Focal occlusion within the distal right superficial femoral artery with reconstitution of flow at the popliteal artery. There is also trace flow identified within the distal left superficial femoral artery which may represent a collateral vessel rather than the superficial femoral artery. 3. Multifocal areas of stenosis within the bilateral calf vessels as described above. ACT 112: Negative or not required by law. Electronically signed by: Juanpablo Faulkner M.D. 12/14/2022 7:16 AM PG Care Time/CCT Total # of Minutes Spent Total Time Spent with Patient: Total time spent is greater than 50% in coordination of care (as documented) at patient's floor/unit and/or counseling patient: Coding Level of Care Code 65353 SUB INP/OBS CARE 2/35MIN Diagnoses Acute GI bleeding K92.2 Acute blood loss anemia D62 DVT (deep venous thrombosis) I82.409 LV (left ventricular) mural thrombus I51.3 HFrEF (heart failure with reduced ejection fraction) I50.20 Gout M10.9 Achilles tendinitis, left leg M76.62 CAD (coronary artery disease) I25.10 Hypothyroidism E03.9 Hypomagnesemia E83.42 PAD (peripheral artery disease) I73.9
[2022-12-14 16:58] LABS: Partial Thromboplastin Ratio > 4.9
[2022-12-14 17:02] LABS: Partial Thromboplastin Time > 139.0 Seconds (21.0-31.0)
[2022-12-14 19:17] LABS: Partial Thromboplastin Ratio 1.7
[2022-12-14] MEDS: ATORVASTATIN 40 MG TAB PO SCH (20:56)
[2022-12-14] MEDS: MELATONIN 3 MG TAB PO PRN (20:57)
[2022-12-14] MEDS: ACETAMINOPHEN 325 MG TAB PO PRN (20:57)
[2022-12-14] MEDS ORDERED: MoRPHine SULFATE 2 MG/ML CARP IV ONE (21:41)
[2022-12-15 02:32] LABS: Partial Thromboplastin Ratio 2.6
[2022-12-15 02:36] LABS: Partial Thromboplastin Time 74.5 Seconds (21.0-31.0)
[2022-12-15] MEDS ORDERED: MoRPHine SULFATE 2 MG/ML CARP IV STA (05:29)
[2022-12-15] MEDS: LEVOTHYROXINE SODIUM 50 MCG TABLET PO SCH (05:54)
[2022-12-15] MEDS: DICLOFENAC SOD 1% GEL 100 GM TUBE EXT SCH ×3 (08:27→20:43)
[2022-12-15] MEDS: PANTOprazole 40 MG TAB PO SCH ×2 (08:27→20:43)
[2022-12-15] MEDS: FLUTICASONE PROPIONATE NA SPR 16 GM BTL NAE SCH (08:27)
[2022-12-15] MEDS: METOPROLOL SUCC 25MG EXT REL TAB PO SCH (08:27)
[2022-12-15 08:49] LABS: BUN Creatinine Ratio 22.6 (10-20); Calcium 8.2 mg/dl (8.6-10.3); Creatinine Clr Calc Pharmacy 85.1 ml/min; Est GFR (African American) 94.1 ml/min; Est GFR (Non-African American) 81.2 ml/min; Potassium 4.1 mmol/L (3.5-5.1)
[2022-12-15 08:56] LABS: Partial Thromboplastin Ratio 1.5
[2022-12-15] MEDS: HEPARIN SODIUM/DEXTROSE 25,000 UNITS/500 ML BAG IV SCH (09:29)
[2022-12-15 10:30] LABS: Basophils # (auto) 0.09 K/uL (0-0.2); Basophils % (auto) 0.9 %; Eosinophils # (auto) 0.07 K/uL (0-0.50); Eosinophils % (auto) 0.7 %; Hematocrit (blood only) 28.8 % (42.0-52.0); Immature Granulocytes # (auto) 0.05 K/uL (0.01-0.20); Immature Granulocytes % (auto) 0.5 %; Lymphocytes # (auto) 0.74 K/uL (1.2-3.4); Lymphocytes % (auto) 7.1 %; Mean Corpuscular Hgb Conc 31.3 g/dL (32.0-36.0); Mean Corpuscular Volume 89.4 fL (80.0-100.0); Mean Platelet Volume 14.2 fL (9.4-12.4); Monocytes # (auto) 0.93 K/uL (0.11-0.59); Neutrophils # (auto) 8.51 K/uL (1.40-6.50); Neutrophils % (auto) 81.8 %; Platelet Count 203 K/uL (130-400); RDW Coefficient of Variation 15.9 % (11.5-14.5); RDW Standard Deviation 51.6 fL (36.4-46.3); Red Blood Count 3.22 M/uL (4.70-6.10); White Blood Count 10.39 K/ul (4.8-10.8)
[2022-12-15] MEDS: ONDANSETRON INJ 2 MG/ML 2 ML VIAL IV PRN (11:07)
--- NOTE | 2022-12-15 11:45 | Hospitalist Progress Note ---
Date of Service December 15, 2022 Assessment & Plan (1) Acute GI bleeding: Plan: Gastric AVM- with active bleeding and s/p clip placed along with esophageal ulcer with no active bleed and clips placed Secondary possibly to prednisone, Eliquis and Gout medications. Pantoprazole IV drip done 12/13/22 Continue po PPI BID Continue to monitor H&H and will transfuse as necessary-hemoglobin remained stable today at 9 Continue to monitor stools for any evidence of active GI bleeding Now on heparin drip for DVT-monitor carefully for bleeding Had nausea on 12/15 likely related to severe knee pain-Zofran ordered (2) Fever: Plan: Spiked a fever on the night of 12/14 With UTI as below not treated as of yet-question if has become bacteremic Check blood cultures Repeat UA with reflex to urine culture Start vancomycin for coagulase-negative Staphylococcus UTI No evidence of infection anywhere else-no respiratory symptoms. Knee does not appear infected despite severe pain. No diarrhea or abdominal pains. (3) Knee pain: Plan: Acute on chronic severe bilateral right greater than left knee pain On presentation was taking prednisone and indomethacin for gout as well as colchicine All of those medications have been stopped No evidence of septic joints-no effusions, erythema -Check knee x-rays -Add IV Dilaudid as needed -Continue Voltaren gel (4) UTI (urinary tract infection): Plan: Presented with complaint of hematuria/blood in front of underwear on admission Urinalysis on admission with 10-30 WBCs and no epithelial cells, no bacteria Urine culture however grew coagulase-negative Staphylococcus but was not treated as it was thought to be asymptomatic bacteriuria Now with fever, developing leukocytosis on 12/14 and 12/15, will collect blood cultures and start IV vancomycin Also will collect repeat urinalysis with reflex to culture prior to starting an tibiotics (5) Acute blood loss anemia: Plan: Hemoglobin remained stable at 9 Per patient had a total of 8 unit transfusions between [facility] during his previous hospitalizations No transfusion is needed here Iron studies - Iron 12, TIBC 240, % saturation 5, and ferritin 41, B12 and folate normal Venofer 300 Mg given 12/13 and 12/14 (6) DVT (deep venous thrombosis): Plan: Was complaining of left calf pain down into the Achilles, positive Almas's sign Venous Doppler LLE with DVT OF THE PROXIMAL TO MID PORTIONS OF THE SFV AND POPLITEAL VEIN WELL POSTERIOR TIBIAL AND PERONEAL VEINS Spoke with GI PA Chelsi Solano who advised ok for Heparin drip Will continue to closely monitor H&H and for any evidence of any active GI bleeding-no evidence of drop in H&H or bleeding at this time No vascular service here this week (for possible IVC filter) Spoke with IR and they do not place IVC filters Eventually will place back on Eliquis if tolerates heparin drip (7) LV (left ventricular) mural thrombus: Plan: Reportedly no longer there on repeat TTE at [facility] Echo 12/10/22 EF 25-30% small apical thrombus-likely endothelialized at this point not likely to embolize as he was on anticoagulation for many months Eliquis on hold (Now on Heparin gtt for acute DVT left leg) (8) HFrEF (heart failure with reduced ejection fraction): Plan: No longer on Entresto since his GI bleed-presume this was held in case of hypotension? It should be restarted at some point Continue metoprolol succinate 25mg PO daily echo 12/10/22 EF 25-30% 97% on RA (9) Gout: Plan: Prednisone and indomethacin discontinued due to esophageal ulcer and bleeding AVM in stomach No active gout flare noted on exam - changes of gouty arthropathy on hands, knees Continues with bilateral knee pain as above, but does not seem to be related to gout clinically (10) Achilles tendinitis, left leg: Plan: ice as needed, avoid NSAIDs due to severe GI bleed At this point, seems may have been pain related to left lower extremity DVT and less likely Achilles tendinitis Ortho evaluated while here and to follow up as outpatient (11) CAD (coronary artery disease): Plan: Hx CABG Plavix, Eliquis on hold due to acute GI bleed Continue atorvastatin (12) Hypothyroidism: Plan: Chronic and stable Last TSH 0.611 Continue Levothyroxine 50mcg daily (13) Hypomagnesemia: Plan: Replaced and improving -Continue mag Ox 400mg BID (14) PAD (peripheral artery disease): Plan: With severe PAD noted on arterial Dopplers-with diffuse atherosclerotic disease as well as suggestion of upstream stenosis involving aorta/iliac arteries, focal occlusion in distal right SFA with reconstitution of flow popliteal artery, trace flow in distal left SFA, multifocal areas of stenosis within bilateral calf vessels:No flow identified within the distal right posterior tibial artery, mid to distal right peroneal artery, proximal to mid left posterior tibial artery, and distal left peroneal artery. With trophic changes of the legs Needs vascular follow-up as an outpatient but if still inpatient on Saturday, will consult while here No acute limb ischemia or wounds/Ulcers Do not think current bilateral knee pain is related to PAD Plan DVT prophylaxis-heparin drip Disposition-continued stay in PCU, most likely will need rehab, PT/OT consults in place Admission and Anticipated Discharge Date Admission Date: December 09, 2022 Subjective Has been having severe right knee pain through the night and today. Reports this causes his knee to lock up. This is a longstanding issue for him. Seems to be worse since his prednisone, indomethacin were discontinued on admission. Received morphine overnight. He also had a fever overnight. Telemetry with sinus rhythm, first-degree AV block, frequent PACs and PVCs, rates in the 90s to 100s Physical Exam Constitutional: + ill appearing (chronically); no acute distress Eyes: + anicteric sclerae Respiratory: normal respiratory effort, lungs clear to auscultation Cardiovascular: RRR, no murmur, no edema Vessels: dorsalis pedis pulses present (1+ DP bilat) Extremities: + calf tenderness (left) Gastrointestinal (Abdomen): normal bowel sounds, soft, nontender, no hepatosplenomegaly Musculoskeletal: Extremities: + limited ROM of extremities (decrease ROM due to pain Rt knee); + extremities abnormal to inspection (right knee with ?gouty tophi) no erythema or effusion of right knee, +TTP over MJL and LJL Psychiatric: Orientation: alert and oriented x 3 Results & Data Results & Data Vital Signs (Past 12 Hours) Vital Signs Temp Pulse Pulse Resp BP Pulse Ox O2 Del Method 12/15/22 11:21 36.5 C 90 18 133/74 93 Room Air 12/15/22 07:00 94 H 12/15/22 07:33 36.7 C 90 20 113/55 L 98 Room Air 12/15/22 02:57 36.9 C 117 H 18 147/78 H 97 Room Air Laboratory Results CBC,BMP,PTT, repeat CBC all reviewed PG Care Time/CCT Total # of Minutes Spent Total Time Spent with Patient: Total time spent is greater than 50% in coordination of care (as documented) at patient's floor/unit and/or counseling patient: Coding Level of Care Code 94935 SUB INP/OBS CARE 350MIN Diagnoses Acute GI bleeding K92.2 Fever R50.9 Knee pain M25.569 UTI (urinary tract infection) N39.0 Acute blood loss anemia D62 DVT (deep venous thrombosis) I82.409 LV (left ventricular) mural thrombus I51.3 HFrEF (heart failure with reduced ejection fraction) I50.20 Gout M10.9 Achilles tendinitis, left leg M76.62 CAD (coronary artery disease) I25.10 Hypothyroidism E03.9 Hypomagnesemia E83.42 PAD (peripheral artery disease) I73.9
[2022-12-15] MEDS: HYDROmorphone INJ 0.5 MG/0.5 ML SYR IV PRN ×3 (11:56→20:44)
[2022-12-15 13:41] LABS: Hematocrit (blood only) 28.3 % (42.0-52.0); Hemoglobin 9.2 g/dl (14.0-18.0); Mean Corpuscular Hemoglobin 27.8 pg (25.0-34.0); Mean Corpuscular Hgb Conc 32.5 g/dL (32.0-36.0); Mean Corpuscular Volume 85.5 fL (80.0-100.0); Platelet Count 174 K/uL (130-400); RDW Coefficient of Variation 15.9 % (11.5-14.5); RDW Standard Deviation 49.1 fL (36.4-46.3); Red Blood Count 3.31 M/uL (4.70-6.10); White Blood Count 12.65 K/ul (4.8-10.8)
[2022-12-15] MEDS ORDERED: VANCOMYCIN CONSULT ACTIVE PRN (17:29)
[2022-12-15] MEDS ORDERED: VANCOMYCIN HCL 2,000 MG in SODIUM CHLORIDE 0.9% 500 ML IV ONE (17:45)
--- NOTE | 2022-12-15 17:53 | XRay Report ---
LEFT KNEE 2 VIEWS CLINICAL HISTORY: Left knee pain. Swelling. FINDINGS: AP and lateral views of the left knee are obtained. No prior studies are available for kristian coleman at the time of dictation. The skeletal structures are osteopenic. No fracture is seen. There i s whze-zp-jdduqhek tricompartmental degenerative joint space narrowing. There are marginal osteophyte s and patellar enthesophytes. A small joint effusion is noted. Soft tissue edema is present around th e knee. There is advanced atherosclerotic calcification of the popliteal artery. IMPRESSION: 1. Soft tissue swelling and small joint effusion with no acute bony abnormality identified. 2. Osteopenia and degenerative change as above. Electronically signed by: Hitesh Zheng M.D. 12/15/2022 5:51 PM
--- NOTE | 2022-12-15 17:57 | XRay Report ---
RIGHT KNEE 2 VIEWS CLINICAL HISTORY: Right knee pain. Swelling. FINDINGS: AP and lateral views of the right knee are obtained. No prior studies are available for [facility] at the time of dictation. The skeletal structures are osteopenic. No fracture is seen. There is xymb-hh-slenpiqi tricompartmental degenerative joint space narrowing. There are marginal osteophyt es and patellar enthesophytes. A small joint effusion is noted. Soft tissue edema is present around t he knee. There is advanced atherosclerotic calcification of the popliteal artery. Surgical clips are seen within the upper calf. IMPRESSION: 1. Soft tissue swelling and small joint effusion with no acute bony abnormality identified. 2. Osteopenia and degenerative change as above. Electronically signed by: Hitesh Zheng M.D. 12/15/2022 5:56 PM
[2022-12-15] MEDS: ATORVASTATIN 40 MG TAB PO SCH (20:43)
--- NOTE | 2022-12-15 20:51 | Pharmacy Report ---
Pharmacy PK ABX Note - Date of Service December 15, 2022 - Assessment and Plan Assessment 72 year old M started on vancomycin and cefepime due to concerns for infection/UTI. Urine previously growing [employer] and thought to by asymptomatic bacteriuria. Patient spiking fever, with leukocytosis. Day #1 of antimicrobial therapy. Plan Vancomycin * Loading dose: 2000 mg x 1 * Will start maintenance dose of vancomycin 1000 mg iv q 12 hr - this dosing is estimated to achieve a trough level of ~16 mcg/ml, AUC/DAVID of 400-600 and associated with toxicity of 12% * Will plan to order random level if plan is to continue>48 hours Pharmacy will continue to follow and will adjust dose/frequency as necessary. Thank you. Pharmacy has transitioned to AUC monitoring for vancomycin. AUC/DAVID is the preferred PK/PD target and is associated with decreased risk of nephrotoxicity compared to traditional trough targets.
[2022-12-15] MEDS: CEFEPIME 2,000 MG in SYRINGE 0 ML IV SCH (21:23)
[2022-12-16 01:10] LABS: Appearance Urine Cloudy (Clear); Bacteria Urine Automated Negative (Negative); Bilirubin Urine Negative (Negative); Blood Urine 2+ (Negative); Color Urine Dark Yellow; Epithelial Cell Urine Auto >30 /lpf (0-5); Glucose Urine UA Negative (Negative); Ketones Urine Trace (Negative); Leukocyte Esterase Urine 1+ (Negative); Nitrite Urine Negative (Negative); Protein Urine 1+ (Negative); RBC Urine Automated 0-4 /hpf (0-4); Specific Gravity Urine 1.026 (1.000-1.030); Urobilinogen Urine Negative (Negative)
[2022-12-16] MEDS: CEFEPIME 2,000 MG in SYRINGE 0 ML IV SCH ×3 (03:46→19:47)
[2022-12-16] MEDS ORDERED: VANCOMYCIN HCL 1,000 MG in SODIUM CHLORIDE 0.9% 250 ML IV SCH (04:00)
[2022-12-16] MEDS: ONDANSETRON INJ 2 MG/ML 2 ML VIAL IV PRN ×2 (05:29→13:23)
[2022-12-16] MEDS: LEVOTHYROXINE SODIUM 50 MCG TABLET PO SCH (05:30)
[2022-12-16] MEDS: HYDROmorphone INJ 0.5 MG/0.5 ML SYR IV PRN ×2 (07:10→13:23)
[2022-12-16 07:44] LABS: Basophils # (auto) 0.11 K/uL (0-0.2); Eosinophils # (auto) 0.04 K/uL (0-0.50); Eosinophils % (auto) 0.3 %; Hemoglobin 8.7 g/dl (14.0-18.0); Immature Granulocytes # (auto) 0.09 K/uL (0.01-0.20); Immature Granulocytes % (auto) 0.8 %; Lymphocytes # (auto) 1.12 K/uL (1.2-3.4); Lymphocytes % (auto) 9.7 %; Mean Corpuscular Hemoglobin 27.6 pg (25.0-34.0); Mean Corpuscular Hgb Conc 31.1 g/dL (32.0-36.0); Mean Corpuscular Volume 88.9 fL (80.0-100.0); Mean Platelet Volume 13.6 fL (9.4-12.4); Monocytes # (auto) 1.15 K/uL (0.11-0.59); Neutrophils % (auto) 78.2 %; Platelet Count 229 K/uL (130-400); RDW Coefficient of Variation 16.4 % (11.5-14.5); RDW Standard Deviation 52.4 fL (36.4-46.3); Red Blood Count 3.15 M/uL (4.70-6.10); White Blood Count 11.51 K/ul (4.8-10.8)
[2022-12-16 07:58] LABS: BUN Creatinine Ratio 31.4 (10-20); Calcium 7.9 mg/dl (8.6-10.3); Creatinine Clr Calc Pharmacy 67.5 ml/min; Est GFR (African American) 70.5 ml/min; Est GFR (Non-African American) 60.9 ml/min; Magnesium 1.7 mg/dl (1.7-2.4); Potassium 4.2 mmol/L (3.5-5.1)
[2022-12-16 08:23] LABS: Partial Thromboplastin Ratio 1.5
[2022-12-16 08:24] LABS: Partial Thromboplastin Time 42.7 Seconds (21.0-31.0)
[2022-12-16] MEDS: FLUTICASONE PROPIONATE NA SPR 16 GM BTL NAE SCH (09:15)
[2022-12-16] MEDS: PANTOprazole 40 MG TAB PO SCH ×2 (09:15→19:48)
[2022-12-16] MEDS: METOPROLOL SUCC 25MG EXT REL TAB PO SCH (09:15)
[2022-12-16] MEDS: DICLOFENAC SOD 1% GEL 100 GM TUBE EXT SCH ×3 (09:15→19:47)
--- NOTE | 2022-12-16 09:24 | XRay Report ---
XR chest 1V portable HISTORY: fever COMPARISON: Chest 12/09/2022. FINDINGS: No pneumothorax. There are poststernotomy changes. The heart remains enlarged. Degenerative changes again noted within the shoulders. Mild pulmonary vascular congestion and trace bilateral ple ural effusions persist. Hazy appearance to left lung base may represent the layering pleural fluid or developing opacity. IMPRESSION: 1. No change in the cardiomegaly, mild pulmonary vascular congestion, and trace pleural effusions. 2. Hazy appearance to the left lung base may represent layering pleural fluid or a developing opacity . ACT 112: Negative or not required by law. Electronically signed by: Juanpablo Faulkner M.D. 12/16/2022 9:22 AM
--- NOTE | 2022-12-16 10:11 | Pharmacy Report ---
Pharmacy PK ABX Note - Date of Service December 16, 2022 - Assessment and Plan Assessment * 72 year old M started on vancomycin and cefepime due to concerns for infection/UTI. * Urine previously growing oxacillin-resistant CoNS and thought to by asymptomatic bacteriuria. * SCr worsening slightly and estimated AUC supratherapeutic. Will decrease vancomycin. Plan Vancomycin * Decrease dose of vancomycin to 1000 mg IV q18h * Goal AUC/DAVID 400-600 mg/L.hr * Random level with AM labs 12/17 Pharmacy will continue to follow and will adjust dose/frequency as necessary. Thank you. Pharmacy has transitioned to AUC monitoring for vancomycin. AUC/DAVID is the pref erred PK/PD target and is associated with decreased risk of nephrotoxicity compared to traditional trough targets.
[2022-12-16] MEDS: HEPARIN SODIUM/DEXTROSE 25,000 UNITS/500 ML BAG IV SCH (11:26)
--- NOTE | 2022-12-16 14:01 | Hospitalist Progress Note ---
Date of Service December 16, 2022 Assessment & Plan (1) Acute GI bleeding: Plan: Has been in 3 different hospitals in the last 2 weeks with ongoing GI bleeding Transfused 8 units of blood at outside hospitals On EGD here, found to have gastric AVM- with active bleeding and s/p clip placed along with esophageal ulcer with no active bleed and clips placed Secondary possibly to prednisone, Eliquis and Gout medications. Pantoprazole IV drip done 12/13/22 Continue po PPI BID Continue to monitor H&H and will transfuse as necessary-hemoglobin remained stable today at 8.7 Continue to monitor stools for any evidence of active GI bleeding-none Now on heparin drip for DVT-monitor carefully for bleeding Had nausea on 12/15 and again on 12/16 likely related to severe knee pain-Zofran ordered. Nausea improved with pain control of the knees Continue to hold home Eliquis and aspirin, but eventually will restart Eliquis given DVT once continued stability of hemoglobin (2) Fever: Plan: Spiked a fever on the night of 12/14, then developed a cough the next day Chest x-ray showing left lower lobe pneumonia Urine culture on admission with coagulase-negative Staphylococcus which is likely a contaminant Follow blood cultures-no growth to date Repeat UA on 12/16 appears contaminated with epithelial cells, urine culture pending Continue vancomycin just in case for coagulase-negative Staphylococcus UTI is a true infection Knee does not appear infected despite severe pain. No diarrhea or abdominal pains. (3) Knee pain: Plan: Acute on chronic severe bilateral right greater than left knee pain On presentation was taking prednisone and indomethacin for gout as well as colchicine All of those medications have been stopped hence why the pain is returning and is severe No evidence of septic joints-no effusions on examination, erythema Bilateral knee x-rays with small joint effusions and severe arthritis Dilaudid is helping with the pain -Start tramadol 50 Mg p.o. every 6 hours as needed pain and use IV Dilaudid for severe breakthrough pain -Avoid all NSAIDs, prednisone -Continue Voltaren gel to the bilateral knees (4) UTI (urinary tract infection): Plan: Presented with complaint of hematuria/blood in front of underwear on admission Urinalysis on admission with 10-30 WBCs and no epithelial cells, no bacteria Urine culture however grew coagulase-negative Staphylococcus but was not treated as it was thought to be asymptomatic bacteriuria Now with fever, developing leukocytosis on 12/14 and 12/15, started IV vancomycin Repeat urinalysis prior to starting IV vancomycin is contaminated but urine culture pending (5) Pneumonia: Plan: As noted above (6) Acute blood loss anemia: Plan: Hemoglobin remains stable at 8.7 Per patient had a total of 8 unit transfusions between [facility] during his previous hospitalizations No transfusion is needed here Iron studies - Iron 12, TIBC 240, % saturation 5, and ferritin 41, B12 and folate normal Venofer 300 Mg IV given x3 doses here Follow CBC (7) DVT (deep venous thrombosis): Plan: Was complaining of left calf pain down into the Achilles, positive Almas's sign Venous Doppler LLE with DVT OF THE PROXIMAL TO MID PORTIONS OF THE SFV AND POPLITEAL VEIN WELL POSTERIOR TIBIAL AND PERONEAL VEINS Spoke with GI PA Chelsi Solano who advised ok for Heparin drip Will continue to closely monitor H&H and for any evidence of any active GI bleeding-no evidence of drop in H&H or bleeding at this time No vascular service here this week (for possible IVC filter) Spoke with IR and they do not place IVC filters Eventually will place back on Eliquis if tolerates heparin drip for another day or so Recommend lifelong anticoagulation given previous history of right lower extremity DVT and now with left lower extremity DVT (8) LV (left ventricular) mural thrombus: Plan: Diagnosed with an LV thrombus at the time of his stroke 2 years ago approximately Echo 12/10/22 EF 25-30% small apical thrombus-likely endothelialized at this point not likely to embolize as he was on anticoagulation for many months Eliquis on hold due to life-threatening GI bleed (Now on Heparin gtt for acute DVT left leg) (9) HFrEF (heart failure with reduced ejection fraction): Plan: Presumably related to ischemia given history of CAD with CABG No longer on Entresto-discontinued by his referral manager-Dr. Orona prior to these recent hospitalizations-patient and his son do not know the reason why but suspect hypotension Continue metoprolol succinate 25mg PO daily echo 12/10/22 EF 25-30% Follow-up with referral manager as an outpatient Lasix on hold, does not appear volume overloaded Jardiance from home is also on hold (10) Gout: Plan: Prednisone and indomethacin discontinued due to esophageal ulcer and bleeding AVM in stomach No active gout flare noted on exam - changes of gouty arthropathy on hands, knees Continues with bilateral knee pain as above, but does not seem to be related to gout clinically (11) Achilles tendinitis, left leg: Plan: ice as needed, avoid NSAIDs due to severe GI bleed At this point, seems may have been pain related to left lower extremity DVT and less likely Achilles tendinitis Ortho evaluated while here and to follow up as outpatient (12) CAD (coronary artery disease): Plan: Hx CABG Aspirin, Eliquis on hold due to acute GI bleed Continue atorvastatin, metoprolol Eventually need to restart aspirin (13) Hypothyroidism: Plan: Chronic and stable TSH 0.611 here Continue Levothyroxine 50mcg daily (14) Hypomagnesemia: Plan: Replaced and improving -Continue mag Ox 400mg BID (15) PAD (peripheral artery disease): Plan: With severe PAD noted on arterial Dopplers-with diffuse atherosclerotic disease as well as suggestion of upstream stenosis involving aorta/iliac arteries, focal occlusion in distal right SFA with reconstitution of flow popliteal artery, trace flow in distal left SFA, multifocal areas of stenosis within bilateral calf vessels:No flow identified within the distal right posterior tibial artery, mid to distal right peroneal artery, proximal to mid left posterior tibial artery, and distal left peroneal artery. With trophic changes of the legs Needs vascular follow-up as an outpatient but if still inpatient on Saturday, will consult while here No acute limb ischemia or wounds/Ulcers Do not think current bilateral knee pain is related to PAD Plan DVT prophylaxis-heparin drip Disposition-continued stay in PCU, very slowly improving, most likely will need rehab, PT/OT consults in place. Discussed all care with son at the bedside on 12/16 Admission and Anticipated Discharge Date Admission Date: December 09, 2022 Subjective Patient feels pain in his knees is better controlled today and he was able to get out of bed more easily. No abdominal pain. Some nausea after eating breakfast, relieved with Zofran. No chest pain or shortness of breath. Has developed a cough since yesterday. Telemetry with 2 7 beat runs of VT, otherwise sinus rhythm, first-degree AV block, PVCs, rates in the 90s I discussed his care with his son at the bedside Physical Exam Constitutional: + ill appearing (chronically); no acute distress Eyes: + anicteric sclerae Respiratory: normal respiratory effort, lungs clear to auscultation Cardiovascular: RRR, no murmur, no edema Vessels: dorsalis pedis pulses present (1+ DP bilat) Extremities: + calf tenderness (left) Gastrointestinal (Abdomen): normal bowel sounds, soft, nontender, no hepatosplenomegaly Musculoskeletal: Extremities: + limited ROM of extremities (decrease ROM due to pain Rt knee); + extremities abnormal to inspection (right knee with ?gouty tophi) Psychiatric: Orientation: alert and oriented x 3 Results & Data Results & Data Vital Signs (Past 12 Hours) Vital Signs Temp Pulse Pulse Resp BP Pulse Ox O2 Del Method 12/16/22 11:31 36.8 C 84 18 102/50 L 98 Room Air 12/16/22 07:43 36.6 C 79 18 122/75 98 Room Air 12/16/22 07:00 90 12/16/22 02:32 36.4 C L 93 H 18 132/74 96 Room Air Laboratory Results CBC, BMP, magnesium, procalcitonin reviewed Urine culture and blood cultures pending PG Care Time/CCT Total # of Minutes Spent Total Time Spent with Patient: Total time spent is greater than 50% in coordination of care (as documented) at patient's floor/unit and/or counseling patient: Coding Level of Care Code 06122 SUB INP/OBS CARE 3/50MIN Diagnoses Acute GI bleeding K92.2 Fever R50.9 Knee pain M25.569 UTI (urinary tract infection) N39.0 Pneumonia J18.9 Acute blood loss anemia D62 DVT (deep venous thrombosis) I82.409 LV (left ventricular) mural thrombus I51.3 HFrEF (heart failure with reduced ejection fraction) I50.20 Gout M10.9 Achilles tendinitis, left leg M76.62 CAD (coronary artery disease) I25.10 Hypothyroidism E03.9 Hypomagnesemia E83.42 PAD (peripheral artery disease) I73.9
[2022-12-16] MEDS ORDERED: IRON SUCROSE 300 MG in SODIUM CHLORIDE 0.9% 250 ML IV ONE (17:28)
[2022-12-16] MEDS: traMADol HCL 50 MG TABLET PO PRN (17:40)
[2022-12-16] MEDS: ATORVASTATIN 40 MG TAB PO SCH (19:48)
[2022-12-16] MEDS: VANCOMYCIN HCL 1,000 MG in SODIUM CHLORIDE 0.9% 250 ML IV SCH (21:57)
[2022-12-17] MEDS: CEFEPIME 2,000 MG in SYRINGE 0 ML IV SCH (03:01)
[2022-12-17] MEDS: LEVOTHYROXINE SODIUM 50 MCG TABLET PO SCH (05:37)
[2022-12-17 06:36] LABS: BUN Creatinine Ratio 32.4 (10-20); Calcium 8.2 mg/dl (8.6-10.3); Creatinine Clr Calc Pharmacy 55.2 ml/min; Est GFR (Non-African American) 47.4 ml/min; Magnesium 1.9 mg/dl (1.7-2.4); Potassium 4.5 mmol/L (3.5-5.1)
[2022-12-17 06:46] LABS: Basophils # (auto) 0.13 K/uL (0-0.2); Basophils % (auto) 0.9 %; Eosinophils # (auto) 0.08 K/uL (0-0.50); Eosinophils % (auto) 0.6 %; Hematocrit (blood only) 29.9 % (42.0-52.0); Hemoglobin 9.2 g/dl (14.0-18.0); Immature Granulocytes # (auto) 0.14 K/uL (0.01-0.20); Lymphocytes # (auto) 1.23 K/uL (1.2-3.4); Lymphocytes % (auto) 8.8 %; Mean Corpuscular Hemoglobin 27.8 pg (25.0-34.0); Mean Corpuscular Hgb Conc 30.8 g/dL (32.0-36.0); Mean Corpuscular Volume 90.3 fL (80.0-100.0); Mean Platelet Volume 13.7 fL (9.4-12.4); Monocytes # (auto) 1.07 K/uL (0.11-0.59); Monocytes % (auto) 7.6 %; Neutrophils # (auto) 11.35 K/uL (1.40-6.50); Neutrophils % (auto) 81.1 %; Platelet Count 277 K/uL (130-400); RDW Coefficient of Variation 16.7 % (11.5-14.5); RDW Standard Deviation 54.4 fL (36.4-46.3); Red Blood Count 3.31 M/uL (4.70-6.10)
[2022-12-17 07:16] LABS: Partial Thromboplastin Ratio 1.9
[2022-12-17 07:21] LABS: Partial Thromboplastin Time 53.7 Seconds (21.0-31.0)
[2022-12-17] MEDS: DICLOFENAC SOD 1% GEL 100 GM TUBE EXT SCH ×3 (07:59→20:28)
[2022-12-17] MEDS: FLUTICASONE PROPIONATE NA SPR 16 GM BTL NAE SCH (08:00)
[2022-12-17] MEDS: PANTOprazole 40 MG TAB PO SCH ×2 (08:00→20:27)
[2022-12-17] MEDS: METOPROLOL SUCC 25MG EXT REL TAB PO SCH (08:00)
[2022-12-17] MEDS: traMADol HCL 50 MG TABLET PO PRN (08:11)
--- NOTE | 2022-12-17 10:41 | Pharmacy Report ---
Pharmacy PK ABX Note - Date of Service December 17, 2022 - Assessment and Plan Assessment 12/17 * Random vanc level obtained this mornin.1 mcg/mL * Current regimen is expected to produce goal AUC/trough levels. 12/16 * 72 year old M started on vancomycin and cefepime due to concerns for infection/UTI. * Urine previously growing oxacillin-resistant CoNS and thought to by asymptomatic bacteriuria. * SCr worsening slightly and estimated AUC supratherapeutic. Will decrease vancomycin. Plan Vancomycin * Continue vancomycin 1000 mg IV q18h * Goal AUC/DAVID 400-600 mg/L.hr * Will check another vanc level in 1-2 days if patient remains on therapy. Pharmacy will continue to follow and will adjust dose/frequency as necessary. Thank you. Pharmacy has transitioned to AUC monitoring for vancomycin. AUC/DAVID is the preferred PK/PD target and is associated with decreased risk of nephrotoxicity compared to traditional trough targets.
--- NOTE | 2022-12-17 11:47 | Consultation ---
Date of Consultation December 17, 2022 Assessment & Plan (1) PAD (peripheral artery disease): Pt with PAD noted on US, but is asymptomatic at this time. Poor perfusion from decreased EF may also be contributing to the bluish discoloration of his toes at rest. US also demonstrates poor inflow and pt has poor femoral pulses. Will order aortoiliac study during this admission, but not planning on acute intervention at this time. Will see in office as outpt to reeval sx. Pt's son present today and is agreeable to this plan as well. (2) DVT (deep venous thrombosis): Pt with DVT and will require AC for this. If he begins to have worsening GI bleeding, can reeval for IVC filter insertion. Please call if needed. History of Present Illness Reason for Consultation: PAD Attending Physician: Adrian Samaniego MD History of Present Illness 72 yo m with hx of CHF with EF of 30%, CAD, Gout,hypothyroidism, GI bleeding, LV thrombus, DMII, admitted with GI bleeding, found to have PAD on US. Pt has been having significant BL knee and ankle pain, likely related to his chronic gout. Pt has been hospitalized multiple times over past 2 months, and has generalized weakness. Prior to this, he was ambulating without assistance and denies any claudication sx. Denies any ulcerations. Found to have DVT this admission as well, and was tentatively started on heparin drip. Denies SINCLAIR, fever, chest pain, SOB, abd pain, N/V, other complaints. Arterial US BLE demonstrates poor inflow, as well as significant PAD. Allergies Allergy/AdvReac Type Severity Reaction Status Date / Time clopidogrel [From Plavix] Allergy Unknown Verified 12/09/22 15:50 simvastatin [From Zocor] AdvReac Unknown Verified 12/10/22 04:09 Home Medications Medication Instructions Recorded Confirmed Type apixaban 5 mg tablet (Eliquis) 5 mg BID 12/09/22 12/09/22 History aspirin 81 mg tablet,delayed 81 mg PO DAILY 12/09/22 12/09/22 History release (Enteric Coated Aspirin) atorvastatin 40 mg tablet 40 mg PO HS 12/09/22 12/09/22 History cholecalciferol (vitamin D3) 250 500 mcg PO DAILY 12/09/22 12/09/22 History mcg (10,000 unit) tablet coconut oil 1,000 mg capsule 1,000 mg PO DAILY 12/09/22 12/09/22 History cyanocobalamin (vitamin B-12) 1,000 mcg PO DAILY 12/09/22 12/09/22 History 1,000 mcg capsule empagliflozin 10 mg tablet 10 mg PO DAILY 12/09/22 12/09/22 History (Jardiance) ferrous sulfate 325 mg (65 mg 325 mg PO Q OTHER DAY 12/09/22 12/09/22 History iron) capsule,extended release fluticasone propionate 50 2 spray intranasal DAILY 12/09/22 12/09/22 History mcg/actuation nasal spray,suspension furosemide 40 mg tablet 40 mg PO DAILY 12/09/22 12/09/22 History indomethacin 25 mg capsule 25 mg PO TID PRN Pain 12/09/22 12/09/22 History levothyroxine 50 mcg tablet 50 mcg PO DAILY 12/09/22 12/09/22 History (Synthroid) magnesium oxide 400 mg PO BID 12/09/22 12/09/22 History metoprolol succinate 25 mg 25 mg PO DAILY 12/09/22 12/09/22 History tablet,extended release 24 hr pantoprazole 40 mg tablet,delayed 40 mg PO DAILY 12/09/22 12/09/22 History release prednisone 20 mg tablet 20 mg PO DAILY 12/09/22 12/09/22 History Patient History Medical History Encounter for pre-operative examination Gout HFrEF (heart failure with reduced ejection fraction) Hypothyroidism PAD (peripheral artery disease) Surgical History AICD (automatic cardioverter/defibrillator) present H/O esophagogastroduodenoscopy S/P CABG (coronary artery bypass graft) Social History Smoking Status: Former smoker Smoking End Date: quit 29 years ago; Second Hand Exposure: No; Tobacco Cessation Education Requested by Patient: No Hx Alcohol Use: No Hx Substance Use: No Preferred Language: Syriac Communication Ability: Effective Set Illustrator Required: No Beliefs That Will Affect Care: None Current Living Situation: Alone Other Information That Helps Us Care for You: No Feels Safe at Home: Yes Safety Concerns: Feels Safe At This Time Assistive Devices: Cane and Walker Review of Systems Review of Systems: All systems reviewed & are unremarkable except as noted in HPI & below Physical Exam Constitutional: WD/WN, vitals as above + frail appearing and cooperative; not in distress ENMT: Ears: no hearing impairment Neck: trachea midline Respiratory: normal respiratory effort, lungs clear to auscultation Auscultation: + diminished lung sounds Cardiovascular: Rate/Rhythm: + irregularly irregular Vessels: femoral pulses present (R +1, L nonpalpable) and dorsalis pedis pulses present (RLE +doppler, LLE no signal); + abnormal peripheral pulses and + posterior tibial pulses abnormal Extremities: + edema; + abnormal capillary refill (delayed at 6 seconds, toes bluish at rest) Gastrointestinal (Abdomen): Inspection/Auscultation: abdomen normal to inspection and normal bowel sounds Percussion/Palpation: abdomen soft; abdomen nontender Musculoskeletal: Extremities: strength 5/5 throughout Skin: no rashes, warm and dry Neurologic: moves all extremities and awake; no focal motor deficits and not confused Psychiatric: A+Ox3, euthymic affect Results & Data Vital Signs (Past 12 Hours) Vital Signs Temp Pulse Resp BP Pulse Ox O2 Del Method 12/17/22 11:31 36.9 C 95 H 20 119/66 96 Room Air 12/17/22 07:38 36.6 C 92 H 20 152/83 H 100 Room Air 12/17/22 03:30 36.6 C 87 18 143/70 H 97 Room Air
[2022-12-17] MEDS ORDERED: guaiFENesin/CODEINE 100MG/10MG 5ML UDC PO PRN (12:44)
[2022-12-17] MEDS: HEPARIN SODIUM/DEXTROSE 25,000 UNITS/500 ML BAG IV SCH ×2 (13:20)
[2022-12-17] MEDS: HYDROmorphone INJ 0.5 MG/0.5 ML SYR IV PRN (13:55)
[2022-12-17] MEDS: methylPREDNISolone 60 MG in SYRINGE 0 ML IV SCH ×2 (13:56→21:14)
--- NOTE | 2022-12-17 14:46 | Ultrasound Report ---
US duplex aorta/iliacs/IVC ltd HISTORY: 72 years-old Male AIOD peripheral arterial disease COMPARISON: Lower extremity arterial Doppler study 12/13/2022 TECHNIQUE: Multiple real-time sonographic images of the abdominal aorta and iliac vessels were obtain ed assessing grayscale appearance, color and spectral flow FINDINGS: Atherosclerotic plaque. Proximal abdominal aorta measures 2.0 x 2.3 cm, mid aorta measures 1.5 x 1.8 cm and the distal aorta measures 2.1 x 2.1 cm. There is normal plug flow within the abdominal aorta w ith peak systolic velocities measuring up to 37 cm/s. Patent common iliac arteries with peak systolic velocities on the right measuring up to 45 cm/s and o n the left measuring 122 cm/s. No iliac aneurysms identified. 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 ACT 112: Negative or not required by law. The above report was generated using voice recognition software. It may contain grammatical, syntax o r spelling errors. Electronically signed by: Shivam Conley M.D. 12/17/2022 2:45 PM
--- NOTE | 2022-12-17 14:48 | Hospitalist Progress Note ---
Date of Service December 17, 2022 Assessment & Plan (1) Acute GI bleeding: Plan: Has been in 3 different hospitals in the last 2 weeks with ongoing GI bleeding. Transfused 8 units of blood at outside hospitals. 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 Esophageal ulcer was also noted with no active bleed and clips placed. He was on Protonix drip on admission and now this has been switched to oral dosing. Carafate has been added today, 12/17. Serial labs. (2) Fever: Plan: Spiked a fever on the night of 12/14, then developed a cough the next day. Chest x-ray showing left lower lobe pneumonia. Blood cultures negative. Urine culture growing MRSA. He currently is on vancomycin. (3) Knee pain: Plan: Acute on chronic severe bilateral right greater than left knee pain. Also bilateral ankle and foot pain. Solu-Medrol intravenously ordered. Continue as needed pain medications. We will check uric acid levels and ESR. Lower extremity pain is present at rest with no evidence of overt vascular insufficiency. (4) UTI (urinary tract infection): Plan: MRSA isolated. He is now on intravenous vancomycin. (5) Pneumonia: Plan: Nonproductive cough. Cefepime has been discontinued. (6) Acute blood loss anemia: Plan: He received blood transfusion immediately prior to this hospitalization while at other hospitals. Hemoglobin is now stable. Per patient had a total of 8 unit transfusions between [facility] during his previous hospitalizations. Iron deficiency noted. He has received intravenous Venofer. Continue oral iron replacement at discharge (7) DVT (deep venous thrombosis): Plan: Left lower extremity DVT diagnosed December 13. He is now on a heparin drip. This will eventually be converted back to Eliquis. (8) LV (left ventricular) mural thrombus: Plan: Diagnosed with an LV thrombus at the time of his stroke 2 years ago approximately Echo 12/10/22 EF 25-30% small apical thrombus-likely endothelialized at this point and not likely to embolize as he was on anticoagulation for many months. Eliquis on hold due to life-threatening GI bleed. Now on Heparin gtt for acute DVT left leg (9) HFrEF (heart failure with reduced ejection fraction): Plan: No longer on Entresto-discontinued by his cabinet professional-Dr. Orona prior to these recent hospitalizations-patient and his son do not know the reason why but suspect hypotension. Continue metoprolol succinate 25mg PO daily. Echo 12/10/22 EF 25-30%. Follow-up with cabinet professional as an outpatient. Lasix on hold, does not appear volume overloaded. Jardiance from home is also on hold (10) Gout: Plan: Prednisone and indomethacin discontinued due to esophageal ulcer and bleeding AVM in stomach. Uric acid level and sed rate pending. Parenteral Solu-Medrol ordered (11) Achilles tendinitis, left leg: Plan: ice as needed, avoid NSAIDs due to severe GI bleed. Solu-Medrol ordered. Ortho evaluated while here and to follow up as outpatient (12) CAD (coronary artery disease): Plan: Hx CABG. Aspirin, Eliquis on hold due to acute GI bleed. Continue atorvastatin, metoprolol (13) Hypothyroidism: Plan: Chronic and stable. TSH 0.611. Continue Levothyroxine 50mcg daily (14) Hypomagnesemia: Plan: Replaced and resolved. Continue mag Ox 400mg BID (15) PAD (peripheral artery disease): Plan: severe PAD noted on arterial dopplers with diffuse atherosclerotic disease as w ell as suggestion of upstream stenosis involving aorta/iliac arteries, focal occlusion in distal right SFA with reconstitution of flow popliteal artery, trace flow in distal left SFA, multifocal areas of stenosis within bilateral calf vessels:No flow identified within the distal right posterior tibial artery, mid to distal right peroneal artery, proximal to mid left posterior tibial artery, and distal left peroneal artery.Needs vascular follow-up as an outpatient. Current lower extremity pain does not appear to be ischemic in nature. Plan DVT prophylaxis-currently on heparin drip. Eliquis will eventually be restarted Disposition-it appears he will need IPR or SNF placement at discharge Admission and Anticipated Discharge Date Admission Date: December 09, 2022 Subjective Alert and oriented. Family is at the bedside. His main complaint is bilateral lower extremity pain at rest that is limiting ambulation. He is markedly tender to touch in the bilateral ankle and foot areas. This does not appear to be vascular but inflammatory, possibly from underlying atypical gout. Uric acid and ESR are ordered. Will give parenteral steroids and see his response. Carafate added to oral Protonix. Cefepime discontinued based on culture results. Continue vancomycin. It appears he will need placement at the time of discharge. He remains on a heparin drip which will eventually be switched back to Eliquis. Review of Systems Review of Systems: Constitutional-no fever or chills ENT-no blurred vision, no double vision, no epistaxis, no sore throat Respiratory-no cough, no wheezing, no shortness of breath Cardiac-no palpitations, no chest pain, no syncope GI-no nausea, vomiting, diarrhea, melena, hematochezia -no urinary retention, no urinary incontinence, no dysuria, no hematuria Musculoskeletal-bilateral foot and ankle pain Skin-no bruising, no rashes, no pruritus Neuro-no isolated weakness, no paresthesia, no weakness Psych-no depression, no anxiety Physical Exam Physical Exam: General-alert and oriented x3, no fevers, no chills. Pallor noted HEENT-head atraumatic and normocephalic, pupils equal and reactive to light, extraocular muscles intact Neck-no lymphadenopathy or thyromegaly, trachea midline Chest-clear to auscultation percussion. No rales wheezing or rhonchi Cardiac-regular rate and rhythm, normal S1 and S2, no murmurs Abdomen-normal bowel sounds, nontender, no hepatosplenomegaly Extremities-exquisite tenderness bilateral ankles and feet. No overt erythema or ankle joint effusion. No cyanosis in either foot. Neuro-cranial nerves II through XII intact, motor and sensory function within normal limits, strength symmetrical, no focal deficits Psych-normal affect, normal mood Results & Data Results & Data Vital Signs (Past 12 Hours) Vital Signs Temp Pulse Resp BP Pulse Ox O2 Del Method 12/17/22 11:31 36.9 C 95 H 20 119/66 96 Room Air 12/17/22 07:38 36.6 C 92 H 20 152/83 H 100 Room Air 12/17/22 03:30 36.6 C 87 18 143/70 H 97 Room Air Laboratory Results 12/17/22 05:56 12/17/22 05:56 PG Care Time/CCT Total # of Minutes Spent Total Time Spent with Patient: Total time spent is greater than 50% in coordination of care (as documented) at patient's floor/unit and/or counseling patient: Coding Level of Care Code 41885 SUB INP/OBS CARE 3/50MIN Diagnoses Acute GI bleeding K92.2 Fever R50.9 Knee pain M25.569 UTI (urinary tract infection) N39.0 Pneumonia J18.9 Acute blood loss anemia D62 DVT (deep venous thrombosis) I82.409 LV (left ventricular) mural thrombus I51.3 HFrEF (heart failure with reduced ejection fraction) I50.20 Gout M10.9 Achilles tendinitis, left leg M76.62 CAD (coronary artery disease) I25.10 Hypothyroidism E03.9 Hypomagnesemia E83.42 PAD (peripheral artery disease) I73.9
[2022-12-17] MEDS: VANCOMYCIN HCL 1,000 MG in SODIUM CHLORIDE 0.9% 250 ML IV SCH (17:04)
[2022-12-17] MEDS: FERROUS SULFATE 325 MG TAB PO SCH (17:22)
[2022-12-17] MEDS: SUCRALFATE 1 GM/10 ML UDC PO SCH ×2 (17:22→20:28)
[2022-12-17] MEDS: ATORVASTATIN 40 MG TAB PO SCH (20:27)
[2022-12-18] MEDS: methylPREDNISolone 60 MG in SYRINGE 0 ML IV SCH ×3 (06:09→20:49)
[2022-12-18] MEDS: LEVOTHYROXINE SODIUM 50 MCG TABLET PO SCH (06:10)
[2022-12-18 06:31] LABS: BUN Creatinine Ratio 39.3 (10-20); Calcium 8.1 mg/dl (8.6-10.3); Creatinine Clr Calc Pharmacy 60.1 ml/min; Est GFR (African American) 59.9 ml/min; Est GFR (Non-African American) 51.7 ml/min; Potassium 4.8 mmol/L (3.5-5.1)
[2022-12-18 07:07] LABS: Partial Thromboplastin Ratio 1.5
[2022-12-18 07:14] LABS: Partial Thromboplastin Time 42.4 Seconds (21.0-31.0)
[2022-12-18] MEDS: DICLOFENAC SOD 1% GEL 100 GM TUBE EXT SCH ×3 (07:56→20:47)
[2022-12-18] MEDS: FLUTICASONE PROPIONATE NA SPR 16 GM BTL NAE SCH (07:56)
[2022-12-18] MEDS: FERROUS SULFATE 325 MG TAB PO SCH ×2 (07:56→17:28)
[2022-12-18] MEDS: SUCRALFATE 1 GM/10 ML UDC PO SCH ×4 (07:57→20:49)
[2022-12-18] MEDS: METOPROLOL SUCC 25MG EXT REL TAB PO SCH (07:57)
[2022-12-18] MEDS: PANTOprazole 40 MG TAB PO SCH ×2 (09:30→20:47)
[2022-12-18 09:46] LABS: Hematocrit (blood only) 28.7 % (42.0-52.0); Hemoglobin 8.8 g/dl (14.0-18.0); Mean Corpuscular Hemoglobin 27.9 pg (25.0-34.0); Mean Corpuscular Hgb Conc 30.7 g/dL (32.0-36.0); Mean Corpuscular Volume 91.1 fL (80.0-100.0); Mean Platelet Volume 14.1 fL (9.4-12.4); Platelet Count 278 K/uL (130-400); RDW Coefficient of Variation 16.9 % (11.5-14.5); RDW Standard Deviation 55.3 fL (36.4-46.3); Red Blood Count 3.15 M/uL (4.70-6.10); White Blood Count 12.74 K/ul (4.8-10.8)
[2022-12-18] MEDS ORDERED: VANCOMYCIN HCL 1,250 MG in SODIUM CHLORIDE 0.9% 250 ML IV SCH (10:00)
[2022-12-18 10:05] LABS: Acanthocytes 2+; Basophils # (auto) 0.03 K/uL (0-0.2); Basophils % (auto) 0.2 %; Echinocytes 2+; Eosinophils # (auto) 0.02 K/uL (0-0.50); Eosinophils % (auto) 0.2 %; Giant Platelets 1+; Hypochromasia Present; Immature Granulocytes # (auto) 0.08 K/uL (0.01-0.20); Immature Granulocytes % (auto) 0.6 %; Lymphocytes # (auto) 0.72 K/uL (1.2-3.4); Lymphocytes % (auto) 5.7 %; Monocytes # (auto) 0.28 K/uL (0.11-0.59); Monocytes % (auto) 2.2 %; Neutrophils # (auto) 11.61 K/uL (1.40-6.50); Neutrophils % (auto) 91.1 %; Ovalocytes 1+; Polychromasia 1+
[2022-12-18] MEDS: HEPARIN SODIUM/DEXTROSE 25,000 UNITS/500 ML BAG IV SCH (13:07)
--- NOTE | 2022-12-18 16:32 | Hospitalist Progress Note ---
Date of Service December 18, 2022 Assessment & Plan (1) Acute GI bleeding: Plan: Has been in 3 different hospitals in the last 2 weeks with ongoing GI bleeding. Transfused 8 units of blood at outside hospitals. 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 Esophageal ulcer was also noted with no active bleed and clips placed. He was on Protonix drip on admission and now this has been switched to oral dosing. Carafate has been added. Hemoglobin is now stable. (2) Fever: Plan: Spiked a fever on the night of 12/14, then developed a cough the next day. Chest x-ray showing left lower lobe pneumonia. Blood cultures negative. Urine culture growing MRSA. He has been treated with intravenous vancomycin. He is now on oral nitrofurantoin (3) Knee pain: Plan: Suspected acute gout bilateral lower extremities. Improved with Solu-Medrol. Colchicine has been added. He probably should be started on allopurinol after the acute flare. Uric acid and ESR levels are elevated as expected. Continue as needed pain medications. Lower extremity pain is present at rest with no evidence of overt vascular insufficiency. (4) UTI (urinary tract infection): Plan: MRSA isolated. Treated with intravenous vancomycin which has been switched to oral Macrodantin based on sensitivities (5) Pneumonia: Plan: Nonproductive cough resolved. Cefepime has been discontinued. (6) Acute blood loss anemia: Plan: He received blood transfusion immediately prior to this hospitalization while at other hospitals. Hemoglobin is now stable. Per patient had a total of 8 unit transfusions between [facility] during his previous hospitalizations. Iron deficiency noted. He has received intravenous Venofer. Continue oral iron replacement at discharge (7) DVT (deep venous thrombosis): Plan: Left lower extremity DVT diagnosed December 13. Treated with a heparin drip and now switched back to Eliquis today, December 18 . (8) LV (left ventricular) mural thrombus: Plan: Diagnosed with an LV thrombus at the time of his stroke 2 years ago approxim louisa Echo 12/10/22 EF 25-30% small apical thrombus-likely endothelialized at this point and not likely to embolize as he was on anticoagulation for many months. Eliquis replaces heparin drip today, December 18 (9) HFrEF (heart failure with reduced ejection fraction): Plan: No longer on Entresto-discontinued by his black studies professor-Dr. Orona prior to these recent hospitalizations-patient and his son do not know the reason why but suspect hypotension. Continue metoprolol succinate 25mg PO daily. Echo 12/10/22 EF 25-30%. Follow-up with black studies professor as an outpatient. Lasix on hold, does not appear volume overloaded. Jardiance from home is also on hold (10) Gout: Plan: Prednisone and indomethacin discontinued due to esophageal ulcer and bleeding AVM in stomach. Uric acid level and sed rate are elevated as expected. Solu- Medrol has helped considerably. Colchicine started today, December 18. He probably should be started on allopurinol once the acute flare has resolved. (11) Achilles tendinitis, left leg: Plan: Improved with intravenous steroid therapy. Avoid NSAIDs due to severe GI bleed. Ortho evaluated while here and to follow up as outpatient (12) CAD (coronary artery disease): Plan: Hx CABG. Aspirin, Eliquis, atorvastatin, metoprolol (13) Hypothyroidism: Plan: Chronic and stable. TSH 0.611. Continue Levothyroxine 50mcg daily (14) Hypomagnesemia: Plan: Replaced and resolved. Continue mag Ox 400mg BID (15) PAD (peripheral artery disease): Plan: severe PAD noted on arterial dopplers with diffuse atherosclerotic disease as well as suggestion of upstream stenosis involving aorta/iliac arteries, focal occlusion in distal right SFA with reconstitution of flow popliteal artery, trace flow in distal left SFA, multifocal areas of stenosis within bilateral calf vessels:No flow identified within the distal right posterior tibial artery, mid to distal right peroneal artery, proximal to mid left posterior tibial artery, and distal left peroneal artery.Needs vascular follow-up as an outpatient. Current lower extremity pain does not appear to be ischemic in nature. Plan DVT prophylaxis-Eliquis therapy Disposition-anticipate discharge to [facility] tomorrow, December 19 Admission and Anticipated Discharge Date Admission Date: December 09, 2022 Subjective Improved with parenteral steroid therapy. Less lower extremity pain. 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 Uric acid is elevated along with ESR. Colchicine has been started. He probably should start allopurinol after the acute gout flare. Heparin drip has been converted to Eliquis. IV vancomycin switched to oral nitrofurantoin. [facility]. Hemoglobin is stable at 8.8. Review of Systems Review of Systems: Constitutional-no fever or chills ENT-no blurred vision, no double vision, no epistaxis, no sore throat Respiratory-no cough, no wheezing, no shortness of breath Cardiac-no palpitations, no chest pain, no syncope GI-no nausea, vomiting, diarrhea, melena, hematochezia -no urinary retention, no urinary incontinence, no dysuria, no hematuria Musculoskeletal-bilateral foot and ankle pain has improved with parenteral steroids. 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 Pallor noted HEENT-head atraumatic and normocephalic, pupils equal and reactive to light, extraocular muscles intact Neck-no lymphadenopathy or thyromegaly, trachea midline Chest-clear to auscultation percussion. No rales wheezing or rhonchi Cardiac-regular rate and rhythm, normal S1 and S2 Abdomen-normal bowel sounds, nontender, no hepatosplenomegaly Extremities-improved tenderness bilateral ankles and feet. No overt erythema or ankle joint effusion. No cyanosis in either foot. Neuro-cranial nerves II through XII intact, motor and sensory function within normal limits, strength symmetrical, no focal deficits Psych-normal affect, normal mood Results & Data Results & Data Vital Signs (Past 12 Hours) Vital Signs Temp Pulse Pulse Resp BP Pulse Ox O2 Del Method 12/18/22 16:10 36.6 C 71 20 121/79 96 Room Air 12/18/22 11:32 36.8 C 92 H 18 149/86 H 97 Room Air 12/18/22 08:43 74 12/18/22 07:07 36.4 C L 74 19 111/64 97 Room Air 12/18/22 04:37 36.3 C L 70 21 116/70 98 Room Air Laboratory Results 12/18/22 06:31 12/18/22 05:43 PG Care Time/CCT Total # of Minutes Spent Total Time Spent with Patient: Total time spent is greater than 50% in coordination of care (as documented) at patient's floor/unit and/or counseling patient: Coding Level of Care Code 43554 SUB INP/OBS CARE 350MIN Diagnoses Acute GI bleeding K92.2 Fever R50.9 Knee pain M25.569 UTI (urinary tract infection) N39.0 Pneumonia J18.9 Acute blood loss anemia D62 DVT (deep venous thrombosis) I82.409 LV (left ventricular) mural thrombus I51.3 HFrEF (heart failure with reduced ejection fraction) I50.20 Gout M10.9 Achilles tendinitis, left leg M76.62 CAD (coronary artery disease) I25.10 Hypothyroidism E03.9 Hypomagnesemia E83.42 PAD (peripheral artery disease) I73.9
[2022-12-18] MEDS: ATORVASTATIN 40 MG TAB PO SCH (20:47)
[2022-12-18] MEDS: APIXABAN 5 MG TABLET PO SCH (20:48)
[2022-12-18] MEDS: COLCHICINE 0.6 MG TAB PO SCH (20:48)
[2022-12-18] MEDS: NITROFURANTOIN MONOHYDRATE 100 MG CAP PO SCH (20:48)
[2022-12-18] MEDS ORDERED: HEPARIN STOP ORDER ONE (21:00)
[2022-12-18] MEDS ORDERED: bisacodyL 10 MG SUPP PR PRN (23:34)
[2022-12-18] MEDS ORDERED: SENNA 8.6 MG TAB PO SCH (23:55)
[2022-12-19] MEDS: POLYETHYLENE (MIRALAX) 17 GM PACK PO SCH ×2 (00:22→09:02)
[2022-12-19] MEDS: LEVOTHYROXINE SODIUM 50 MCG TABLET PO SCH (05:51)
[2022-12-19] MEDS: methylPREDNISolone 60 MG in SYRINGE 0 ML IV SCH ×2 (05:51→14:57)
[2022-12-19 06:45] LABS: BUN Creatinine Ratio 46.3 (10-20); Calcium 8.2 mg/dl (8.6-10.3); Creatinine Clr Calc Pharmacy 54.8 ml/min; Est GFR (African American) 53.2 ml/min; Est GFR (Non-African American) 45.9 ml/min; Potassium 4.2 mmol/L (3.5-5.1)
[2022-12-19 06:46] LABS: Hematocrit (blood only) 28.1 % (42.0-52.0); Hemoglobin 8.8 g/dl (14.0-18.0); Mean Corpuscular Hemoglobin 27.8 pg (25.0-34.0); Mean Corpuscular Hgb Conc 31.3 g/dL (32.0-36.0); Mean Corpuscular Volume 88.6 fL (80.0-100.0); Mean Platelet Volume 13.7 fL (9.4-12.4); Nucleated RBC # (auto) 0.02 K/uL (0-0.12); Nucleated RBC % (auto) 0.1 %; Platelet Count 297 K/uL (130-400); RDW Coefficient of Variation 16.9 % (11.5-14.5); RDW Standard Deviation 53.7 fL (36.4-46.3); Red Blood Count 3.17 M/uL (4.70-6.10)
[2022-12-19 06:54] LABS: Basophils # (auto) 0.03 K/uL (0-0.2); Basophils % (auto) 0.2 %; Immature Granulocytes # (auto) 0.14 K/uL (0.01-0.20); Lymphocytes # (auto) 0.58 K/uL (1.2-3.4); Monocytes % (auto) 3.4 %; Neutrophils # (auto) 13.25 K/uL (1.40-6.50); Neutrophils % (auto) 91.4 %; Ovalocytes 1+; Polychromasia 2+
[2022-12-19 06:58] LABS: Partial Thromboplastin Time 29.6 Seconds (21.0-31.0)
[2022-12-19] MEDS ORDERED: POLYETHYLENE (MIRALAX) 17 GM PACK PO SCH (09:00)
[2022-12-19] MEDS: APIXABAN 5 MG TABLET PO SCH (09:01)
[2022-12-19] MEDS: FERROUS SULFATE 325 MG TAB PO SCH (09:01)
[2022-12-19] MEDS: METOPROLOL SUCC 25MG EXT REL TAB PO SCH (09:02)
[2022-12-19] MEDS: SUCRALFATE 1 GM/10 ML UDC PO SCH ×2 (09:02→14:00)
[2022-12-19] MEDS: PANTOprazole 40 MG TAB PO SCH (09:02)
[2022-12-19] MEDS: FLUTICASONE PROPIONATE NA SPR 16 GM BTL NAE SCH (09:03)
[2022-12-19] MEDS: DICLOFENAC SOD 1% GEL 100 GM TUBE EXT SCH ×2 (09:03→14:00)
[2022-12-19] MEDS: COLCHICINE 0.6 MG TAB PO SCH (09:51)
[2022-12-19] MEDS: NITROFURANTOIN MONOHYDRATE 100 MG CAP PO SCH (09:51)
--- NOTE | 2022-12-19 13:15 | Discharge Summary ---
Date of Service December 19, 2022 Principal Diagnosis Upper GI bleed due to gastric angiodysplasia, acute blood loss anemia, acute gout, MRSA UTI, left lower extremity DVT Discharge Exam General-alert and oriented x3, no fevers, no chills. Pallor noted HEENT-head atraumatic and normocephalic, pupils equal and reactive to light, extraocular muscles intact Neck-no lymphadenopathy or thyromegaly, trachea midline Chest-clear to auscultation percussion. No rales wheezing or rhonchi Cardiac-regular rate and rhythm, normal S1 and S2 Abdomen-normal bowel sounds, nontender, no hepatosplenomegaly Extremities-improved tenderness bilateral ankles and feet. No overt erythema or ankle joint effusion. No cyanosis in either foot. Neuro-cranial nerves II through XII intact, motor and sensory function within normal limits, strength symmetrical, no focal deficits Psych-normal affect, normal mood Discharge Data Allergies Allergy/AdvReac Type Severity Reaction Status Date / Time clopidogrel [From Plavix] Allergy Unknown Verified 12/09/22 15:50 simvastatin [From Zocor] AdvReac Unknown Verified 12/10/22 04:09 Consultations 12/09/22 16:51 Consult Gastroenterology Routine 12/09/22 22:10 HIM [Consult Health Information Management] Routine 12/16/22 14:07 Consult Vascular Surgery Routine Procedures Performed Operation Date: 12/10/22 18:15 Actual Procedures p EGD Hemostasis - Damion Joseph Case, DO Ordered Studies 12/13/22 17:54 US venous doppler LE LT Urgent 12/13/22 19:10 US arterial duplex LE BI Routine 12/17/22 11:38 US Aorta Doppler [US duplex aorta/iliacs/IVC ltd] Routine Hospital Course (1) Acute GI bleeding: Has been in 3 different hospitals in the last 2 weeks with ongoing GI bleeding. Transfused 8 units of blood at outside hospitals. 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 Esophageal ulcer was also noted with no active bleed and clips placed. He was on Protonix drip on admission and now this has been switched to oral dosing. Carafate has been added. Hemoglobin is now stable. (2) Fever: Spiked a fever on the night of 12/14, then developed a cough the next day. Chest x-ray showing left lower lobe pneumonia. Blood cultures negative. Urine culture growing MRSA. He has been treated with intravenous vancomycin. He is now on oral nitrofurantoin (3) Knee pain: Suspected acute gout bilateral lower extremities. Improved with Solu-Medrol. We will switch to prednisone tapering dose at discharge. Colchicine has been added and has helped and is well-tolerated. He probably should be started on allopurinol after the acute flare. Uric acid and ESR levels are elevated as e xpected. Continue as needed pain medications. Lower extremity pain is present at rest with no evidence of overt vascular insufficiency. (4) UTI (urinary tract infection): MRSA isolated. Treated with intravenous vancomycin which has been switched to oral Macrodantin based on sensitivities (5) Pneumonia: Nonproductive cough resolved. Cefepime has been discontinued. (6) Acute blood loss anemia: He received blood transfusion immediately prior to this hospitalization while at other hospitals. Hemoglobin is now stable. Per patient had a total of 8 unit transfusions between [facility] during his previous hospitalizations. Iron deficiency noted. He has received intravenous Venofer. Continue oral iron replacement at discharge (7) DVT (deep venous thrombosis): Left lower extremity DVT diagnosed December 13. Treated with a heparin drip and now switched back to Eliquis on December 18 . (8) LV (left ventricular) mural thrombus: Diagnosed with an LV thrombus at the time of his stroke 2 years ago approximately Echo 12/10/22 EF 25-30% small apical thrombus-likely endothelialized at this point and not likely to embolize as he was on anticoagulation for many months. Eliquis replaced heparin drip on December 18 (9) HFrEF (heart failure with reduced ejection fraction): No longer on Entresto-discontinued by [facility] Orona prior to these recent hospitalizations-patient and his son do not know the reason why but suspect hypotension. Continue metoprolol succinate 25mg PO daily. Echo 12/10/22 EF 25-30%. [facility]up with [facility] as [facility] outpatient. Lasix on hold while hospitalized and will be restarted at discharge. Jardiance from home has also been held while hospitalized and will be restarted at discharge (10) Gout: Prednisone and indomethacin discontinued on admission due to esophageal ulcer and bleeding AVM in stomach. Uric acid level and sed rate are elevated as expected. Solu-Medrol has helped considerably. We will switch to prednisone tapering dose at discharge. Colchicine started on December 18 has been well-tolerated and will continue. He probably should be started on allopurinol once the acute flare has resolved. (11) Achilles tendinitis, left leg: Improved with intravenous steroid therapy. He will be discharged on a prednisone tapering dose. Avoid NSAIDs due to severe GI bleed. Ortho evaluated while here and to follow up as outpatient (12) CAD (coronary artery disease): Hx CABG. Aspirin, Eliquis, atorvastatin, metoprolol. Stable (13) Hypothyroidism: Chronic and stable. TSH 0.611. Continue Levothyroxine 50mcg daily (14) Hypomagnesemia: Replaced and resolved. Continue mag Ox 400mg BID (15) PAD (peripheral artery disease): severe PAD noted on arterial dopplers with diffuse atherosclerotic disease as well as suggestion of upstream stenosis involving aorta/iliac arteries, focal occlusion in distal right SFA with reconstitution of flow popliteal artery, trace flow in distal left SFA, multifocal areas of stenosis within bilateral calf vessels:No flow identified within the distal right posterior tibial artery, mid to distal right peroneal artery, proximal to mid left posterior tibial artery, and distal left peroneal artery.Needs vascular follow-up as an outpatient. Current lower extremity pain does not appear to be ischemic in nature. Plan DVT prophylaxis-Eliquis therapy Disposition-discharge to [facility] today, December 19 Total Time Total Time Spent Total Time Spent (In Minutes): 40 minutes Discharge Plan Discharge Items Patient Disposition: Transfer Inpatient Rehab Fac Reason For Visit: UPPER GI BLEED Discharge Diagnosis: Upper GI bleed due to gastric angiodysplasia, acute blood loss anemia, acute gout, acute left lower extremity DVT, MRSA UTI, iron deficiency, acute kidney injury Activity: Resume your previous activity Non-emergency contact: Primary Care Provider Call non-emergency contact if: you have any medication questions Follow-up/Referrals: PCP,NO [Primary Care Provider] - Diet: Regular and Heart Healthy Addtl Attending Provider Instructions: Prednisone tapering dose along with colchicine for acute gout flare. Consider starting allopurinol 300 mg daily at a later date once the acute gout flare has resolved. Continue Macrobid antibiotic for 5 more days. Continue Protonix and Carafate for the gastric blood vessels that were bleeding. Pending Studies at Discharge: No Stand-Alone Forms: My [facility] Skilled Items Patient informed of condition?: Yes DNR: Yes Discharge Level of Care: Acute rehab Communicable Disease: No Discharge Prognosis: Stable Lines: None Urinary Catheter: No Medications and DC Order Prescriptions: New prednisone 10 mg tablet See Rx Instructions .ROUTE .COMPLEX Qty: 12 0RF Rx Instructions: 10 mg orally 3 times a day for 2 days, then 10 mg twice a day for 2 days, then 10 mg daily for 2 days, then stop pantoprazole 40 mg Tablet,Delayed Release (Dr/Ec) 40 mg PO BID Qty: 0 0RF colchicine [Colcrys] 0.6 mg Tablet 0.6 mg PO BID Qty: 0 0RF nitrofurantoin monohyd/m-cryst 100 mg Capsule 100 mg PO BID Qty: 0 0RF sennosides [Senokot] 8.6 mg Tablet 17.2 mg PO HS Qty: 0 0RF sucralfate 100 mg/mL Suspension 1 g PO QID Qty: 0 0RF polyethylene glycol 3350 [Miralax] 17 gram Powder In Packet 17 g PO DAILY Qty: 0 0RF Continued atorvastatin 40 mg Tablet 40 mg PO HS aspirin [Enteric Coated Aspirin] 81 mg Tablet,Delayed Release (Dr/Ec) 81 mg PO DAILY cholecalciferol (vitamin D3) 250 mcg (10,000 unit) Tablet 500 mcg PO DAILY coconut oil 1,000 mg Capsule 1,000 mg PO DAILY cyanocobalamin (vitamin B-12) 1,000 mcg Capsule 1,000 mcg PO DAILY Eliquis 5 mg Tablet 5 mg BID ferrous sulfate 325 mg (65 mg iron) Capsule, Extended Release 325 mg PO Q OTHER DAY fluticasone propionate 50 mcg/actuation [place],Suspension 2 spray INTRANASAL DAILY Rx Instructions: administer into each nostril furosemide 40 mg Tablet 40 mg PO DAILY Jardiance 10 mg Tablet 10 mg PO DAILY magnesium oxide 400 mg magnesium Tablet 400 mg PO BID metoprolol succinate 25 mg Tablet Extended Release 24 Hr 25 mg PO DAILY pantoprazole 40 mg Tablet,Delayed Release (Dr/Ec) 40 mg PO DAILY levothyroxine [Synthroid] 50 mcg Tablet 50 mcg PO DAILY Discontinued indomethacin 25 mg Capsule 25 mg PO TID PRN (Reason: Pain) Rx Instructions: administer with food or milk prednisone 20 mg Tablet 20 mg PO DAILY Discharge Orders: Discharge Order (Routine); Ordered 12/19/22 Ordered By: Adrian Hardy/Other Patient Handouts: Soft [place] Diet Dc Admission Data Admit Date/Time: 12/09/22 14:45 Attending Provider: Adrian Samaniego Admit Provider: Nikko Lange Primary Care Provider: PCP,NO Other Providers: Damion Tripp ; [facility] ; Milind Ayala Coding Level of Care Code 43140 INP/OBS DISCH >30 MIN Diagnoses Acute GI bleeding K92.2 Fever R50.9 Knee pain M25.569 UTI (urinary tract infection) N39.0 Pneumonia J18.9 Acute blood loss anemia D62 DVT (deep venous thrombosis) I82.409 LV (left ventricular) mural thrombus I51.3 HFrEF (heart failure with reduced ejection fraction) I50.20 Gout M10.9 Achilles tendinitis, left leg M76.62 CAD (coronary artery disease) I25.10 Hypothyroidism E03.9 Hypomagnesemia E83.42 PAD (peripheral artery disease) I73.9
[2022-12-19] MEDS ORDERED: SENNA 8.6 MG TAB PO SCH (21:00)
== END 2022-12-19 16:36 | DRG 377 ==
LOC: 2S 14:45 → SUATTDRO 14:45

== ENCOUNTER 2023-03-10 14:02 | Inpatient (IN) ==
[2023-03-10] MEDS ORDERED: PANTOprazole 40 MG in SYRINGE 0 ML IV ONE (14:29)
[2023-03-10] MEDS ORDERED: FAMOTIDINE 20MG IV PUSH 20 MG/5 ML SYR IV STA (14:29)
--- NOTE | 2023-03-10 14:38 | Emergency Department Note ---
Impression & Plan Acute GI bleeding, Anemia, MÉNDEZ (dyspnea on exertion), Elevated troponin I level ED Provider Note NAME: ROSALINO FALCON AGE: 72 SEX: M : 1950 ARRIVES VIA: Walk-In INFORMANT: Patient, ED PROVIDER(S): Timmy Iraheta DO CHIEF COMPLAINT: Shortness of breath HPI: The patient is a 72-year-old male who presented to the emergency department for an evaluation of difficulty breathing. The patient has been having dyspnea on exertion. He started having his symptoms over the last few months. The patient states he also has a history of GI bleeding. He does have a history of endoscopy in the past with cautery of upper GI bleeding. The patient takes blood thinners for history of mural thrombus in the heart. The patient states has been having shortness of breath with exertion. He denies having any chest pain. He denies having any lower extremity swelling. He has had some bright red blood per rectum as well as melena. He was seen at [facility] yesterday. His rectal exam was positive for blood. He is unsure why he was sent home at that time ROS: See above HPI for pertinent positives & negatives. A total of 10 systems reviewed and were otherwise negative. PAST MEDICAL HISTORY: See Below PAST SURGICAL HISTORY: See Below FAMILY HISTORY: See Below SOCIAL HISTORY: See Below HOME MEDICATIONS: See Below ALLERGIES: See Below VITALS: See Below PHYSICAL EXAMINATION: GENERAL: Patient is awake alert in no acute distress patient is resting comfortably and showing no signs of anxiety EYES: The conjunctivae are pale. The pupils are round and reactive. EARS, NOSE, MOUTH AND THROAT: The nose is without any evidence of any deformity. NECK: The neck is nontender and supple. RESPIRATORY: Normal respiratory effort is noted there is no evidence of wheezing rhonchi or rales CARDIOVASCULAR: Regular rate and rhythm noted there no murmurs rubs or gallops normal S1 normal S2. GASTROINTESTINAL: The abdomen is soft. Abdomen is nontender. Rectal exam revealed black stool which was strongly heme positive. MUSCULOSKELETAL/EXTREMITIES: There is no evidence of gross deformity full range of motion is noted in the hips and shoulders. SKIN: Trace pedal edema was noted bilaterally. Skin was pale. NEUROLOGIC: Patient is awake alert and oriented x3. MEDICAL DECISION MAKING: The patient is a 72-year-old male who presented to the emergency department for an evaluation of difficulty breathing. The patient's been experiencing difficulty breathing with exertion. Is also had upper GI bleeding. He was seen at an outside emergency department and diagnosed with upper GI bleeding and told to follow-up with his GI doctor. Symptoms continued to worsen so he presented to our emergency department today. I discussed the patient's laboratory and radiographic studies with him. He was treated with proton pump inhibitor and H2 blockers in the emergency department. Given his ongoing symptoms as well as his elevated troponin I will discuss his case with the on-call [facility] hospitalist. Triage Nursing notes reviewed. Prior medical records reviewed Vital Signs: reviewed and remarkable for no significant abnormalities Differential diagnosis: Reactive airway disease, pneumonia, pneumothorax, COPD, CHF, infections, cardiac ischemia, pulmonary embolism, musculoskeletal, gastrointestinal, as well as other pathologies. ER treatment provided: See below Diagnostics interpreted by me: ECG: EKG was obtained in the emergency department. My interpretation is sinus rhythm at 89 bpm. There were no PVCs noted. LVH was suggested by voltage criteria. This was compared to a tracing from January 09, 2023. No changes were noted. Cardiac Monitoring: An order was placed for continuous cardiac monitoring. The monitor shows a rate of 86 bpm with sinus rhythm. Laboratory studies: As stated above and show below. Imaging studies: See below. Radiographic imaging was reviewed by myself Consultation(s): I discussed this case with Dr. Maldonado who is on-call for the [facility] hospitalist group. Past Med/Surg History Medical History CAD (coronary artery disease) Gout HFrEF (heart failure with reduced ejection fraction) Hypothyroidism LV (left ventricular) mural thrombus PAD (peripheral artery disease) Surgical History AICD (automatic cardioverter/defibrillator) present H/O esophagogastroduodenoscopy H/O hemorrhoidectomy History of rectal sphincterotomy Hx of cholecystectomy S/P CABG (coronary artery bypass graft) Social History Smoking Status: Former smoker Second Hand Exposure: No; Hx Alcohol Use: No Hx Substance Use: No Preferred Language: Vietnamese Communication Ability: Effective Cardiac Cath Lab Technologist Required: No Beliefs That Will Affect Care: None Current Living Situation: Alone Feels Safe at Home: Yes Assistive Devices: Cane and Walker Allergies Allergies Allergy/AdvReac Type Severity Reaction Status Date / Time allopurinol [From Zyloprim] Allergy Vomiting Verified 03/10/23 14:37 clopidogrel [From Plavix] Allergy Unknown Verified 03/10/23 14:37 atorvastatin AdvReac Unknown Verified 03/10/23 14:37 rosuvastatin [From Crestor] AdvReac Unknown Verified 03/10/23 14:37 simvastatin [From Zocor] AdvReac Unknown Verified 03/10/23 14:37 Home Meds Home Medications Medication Instructions Recorded Confirmed apixaban 5 mg tablet (Eliquis) 5 mg BID 12/09/22 03/10/23 aspirin 81 mg tablet,delayed 81 mg PO DAILY 12/09/22 03/10/23 release (Enteric Coated Aspirin) cholecalciferol (vitamin D3) 250 500 mcg PO DAILY 12/09/22 03/10/23 mcg (10,000 unit) tablet cyanocobalamin (vitamin B-12) 1,000 mcg PO DAILY 12/09/22 03/10/23 1,000 mcg capsule empagliflozin 10 mg tablet 10 mg PO DAILY 12/09/22 03/10/23 (Jardiance) ferrous sulfate 325 mg (65 mg 325 mg PO Q OTHER DAY 12/09/22 03/10/23 iron) capsule,extended release fluticasone propionate 50 2 spray intranasal DAILY 12/09/22 03/10/23 mcg/actuation nasal spray,suspension levothyroxine 50 mcg tablet 50 mcg PO DAILY 12/09/22 03/10/23 (Synthroid) magnesium oxide 400 mg PO BID 12/09/22 03/10/23 metoprolol succinate 25 mg 25 mg PO DAILY 12/09/22 03/10/23 tablet,extended release 24 hr atorvastatin 40 mg tablet 10 mg PO HS 01/24/23 03/10/23 febuxostat 40 mg tablet 40 mg PO DAILY 03/10/23 03/10/23 spironolactone 25 mg tablet 25 mg PO DAILY 03/10/23 03/10/23 Previous Rx's Medication Instructions Recorded pantoprazole 40 mg tablet,delayed 40 mg PO BID #60 tabs 03/08/23 release (Protonix) Results & Data (ED) Vital Signs Vital Signs - 24 hr 03/10/23 14:08 03/10/23 14:28 03/10/23 14:46 Temperature 37.1 C Temperature Source Temporal Artery Scan Pulse Rate 86 86 Respiratory Rate 20 Respiratory Effort / Characteristics Non-Labored Short of Breath Respiratory Depth Normal Blood Pressure 147/75 H Blood Pressure Mean 99 Blood Pressure Position Sitting Pulse Oximetry 100 100 Oxygen Delivery Method Room Air Room Air Sepsis Recent Fever Within 48 Hours No Sepsis New/Unexplained Change in Mental Status No Sepsis Action Taken by Nursing No Action Required 03/10/23 14:46 Temperature Temperature Source Pulse Rate Respiratory Rate Respiratory Effort / Characteristics Respiratory Depth Blood Pressure Blood Pressure Mean Blood Pressure Position Pulse Oximetry 100 Oxygen Delivery Method Room Air Sepsis Recent Fever Within 48 Hours Sepsis New/Unexplained Change in Mental Status Sepsis Action Taken by Fdc Medications Current Medication List: was personally reviewed by me Laboratory Data Attestation: I reviewed the patient's lab results. 03/10/23 14:28 03/10/23 14:28 Lab Results 03/10/23 03/10/23 03/10/23 Range/Units 14:28 14:28 14:28 WBC 6.02 (4.8-10.8) K/ul RBC 3.56 L (4.70-6.10) M/uL Hgb 9.5 L (14.0-18.0) g/dl Hct 31.1 L (42.0-52.0) % MCV 87.4 (80.0-100.0) fL MCH 26.7 (25.0-34.0) pg MCHC 30.5 L (32.0-36.0) g/dL RDW Std Deviation 51.3 H (36.4-46.3) fL RDW Coeff of Gena 16.1 H (11.5-14.5) % Plt Count 229 (130-400) K/uL MPV 12.4 (9.4-12.4) fL Immature Gran % (Auto) 0.3 % Neut % (Auto) 69.6 % Lymph % (Auto) 15.1 % Andrews % (Auto) 13.0 % Eos % (Auto) 1.3 % Baso % (Auto) 0.7 % Neut # (Auto) 4.19 (1.40-6.50) K/uL Lymph # (Auto) 0.91 L (1.2-3.4) K/uL Andrews # (Auto) 0.78 H (0.11-0.59) K/uL Eos # (Auto) 0.08 (0-0.50) K/uL Baso # (Auto) 0.04 (0-0.2) K/uL Immature Gran # (Auto) 0.02 (0.01-0.20) K/uL PT 13.0 H (9.0-12.0) Seconds INR 1.2 H (0.9-1.1) APTT 25.9 (21.0-31.0) Seconds PTT Ratio 0.9 Sodium 137 (136-145) mmol/L Potassium 4.8 (3.5-5.1) mmol/L Chloride 107 (98-107) mmol/L Carbon Dioxide 23 (21-32) mmol/L Anion Gap 7 (3-11) BUN 41 H (6-23) mg/dl Creatinine 1.24 (0.6-1.4) mg/dl Est Cr Clr Drug Dosing 56.5 ml/min Est GFR ( Amer) 66.4 ml/min Est GFR (Non-Af Amer) 57.3 ml/min BUN/Creatinine Ratio 33.1 H (10-20) Glucose 111 H (70-99(Fasting)) mg/dl Calcium 8.9 (8.6-10.3) mg/dl Magnesium 1.9 (1.7-2.4) mg/dl Total Bilirubin 0.8 (0.2-1.0) mg/dl AST 18 (13-39) U/L ALT 10 (7-52) U/L Alkaline Phosphatase 58 (34-104) U/L Troponin I High Sens 24.8 H (0-20) pg/ml Total Protein 6.2 (6.0-8.3) gm/dl Albumin 4.0 (3.4-5.0) gm/dl Globulin 2.2 L (2.5-4.0) gm/dl Albumin/Globulin Ratio 1.8 (0.9-2) SARS-CoV-2, RNA, NAAT (NEGATIVE) Blood Type Antibody Screen 03/10/23 03/10/23 Range/Units 14:50 Unknown WBC (4.8-10.8) K/ul RBC (4.70-6.10) M/uL Hgb (14.0-18.0) g/dl Hct (42.0-52.0) % MCV (80.0-100.0) fL MCH (25.0-34.0) pg MCHC (32.0-36.0) g/dL RDW Std Deviation (36.4-46.3) fL RDW Coeff of Gena (11.5-14.5) % Plt Count (130-400) K/uL MPV (9.4-12.4) fL Immature Gran % (Auto) % Neut % (Auto) % Lymph % (Auto) % Andrews % (Auto) % Eos % (Auto) % Baso % (Auto) % Neut # (Auto) (1.40-6.50) K/uL Lymph # (Auto) (1.2-3.4) K/uL Andrews # (Auto) (0.11-0.59) K/uL Eos # (Auto) (0-0.50) K/uL Baso # (Auto) (0-0.2) K/uL Immature Gran # (Auto) (0.01-0.20) K/uL PT (9.0-12.0) Seconds INR (0.9-1.1) APTT (21.0-31.0) Seconds PTT Ratio Sodium (136-145) mmol/L Potassium (3.5-5.1) mmol/L Chloride (98-107) mmol/L Carbon Dioxide (21-32) mmol/L Anion Gap (3-11) BUN (6-23) mg/dl Creatinine (0.6-1.4) mg/dl Est Cr Clr Drug Dosing ml/min Est GFR ( Amer) ml/min Est GFR (Non-Af Amer) ml/min BUN/Creatinine Ratio (10-20) Glucose (70-99(Fasting)) mg/dl Calcium (8.6-10.3) mg/dl Magnesium (1.7-2.4) mg/dl Total Bilirubin (0.2-1.0) mg/dl AST (13-39) U/L ALT (7-52) U/L Alkaline Phosphatase (34-104) U/L Troponin I High Sens (0-20) pg/ml Total Protein (6.0-8.3) gm/dl Albumin (3.4-5.0) gm/dl Globulin (2.5-4.0) gm/dl Albumin/Globulin Ratio (0.9-2) SARS-CoV-2, RNA, NAAT NEGATIVE (NEGATIVE) Blood Type B Positive Antibody Screen NEGATIVE Administered Medications Discontinued Medications Famotidine (Pepcid 20mg Iv Push) 20 mg in 5 mls @ 2.5 mls/min IV NOW STA Stop: 03/10/23 14:30 Last Admin: 03/10/23 15:01 Dose: 2.5 mls/min Documented By: YVONNE Imaging Data Attestation: I personally reviewed and interpreted this imaging study as follows: My Impression: 1 view chest x-ray was obtained in the emergency department. My interpretation is no free air or definite infiltrate, final report below. Radiologist's Impression: Chest X-Ray 03/10/23 14:28 XR chest 1V portable CLINICAL HISTORY: Dyspnea. COMPARISON STUDY: Chest radiograph December 16, 2022. FINDINGS: There are median sternotomy wires. Suspected defibrillator device is incidentally noted. Cardiomegaly is unchanged. There is a trace right pleural effusion. There is no pneumothorax. There is no consolidation to suggest pneumonia. Linear right basilar densities favor atelectasis or scarring. There is pulmonary vascular congestion without overt pulmonary edema. IMPRESSION: Cardiomegaly. Pulmonary vascular congestion with a trace right pleural effusion. ACT 112: Negative or not required by law. Electronically signed by: Sloan Jennings M.D. 03/10/2023 3:10 PM Discharge Plan Visit Data Chief Complaint: Shortness of Breath/Dyspnea Stated Complaint: SOB ED Provider: Timmy Iraheta Discharge Problem: Acute GI bleeding, Anemia, MÉNDEZ (dyspnea on exertion), Elevated troponin I level Patient Disposition: Being Evaluated by Hospitalist Forms Stand Alone Forms: My [facility] Free Classifieds Prescriptions Prescriptions: No Action atorvastatin 40 mg tablet 10 mg PO HS pantoprazole [Protonix] 40 mg tablet,delayed release (DR/EC) 40 mg PO BID Qty: 60 2RF spironolactone 25 mg tablet 25 mg PO DAILY febuxostat 40 mg tablet 40 mg PO DAILY aspirin [Enteric Coated Aspirin] 81 mg Tablet,Delayed Release (Dr/Ec) 81 mg PO DAILY cholecalciferol (vitamin D3) 250 mcg (10,000 unit) Tablet 500 mcg PO DAILY cyanocobalamin (vitamin B-12) 1,000 mcg Capsule 1,000 mcg PO DAILY Eliquis 5 mg Tablet 5 mg BID ferrous sulfate 325 mg (65 mg iron) Capsule, Extended Release 325 mg PO Q OTHER DAY fluticasone propionate 50 mcg/actuation [place],Suspension 2 spray INTRANASAL DAILY Rx Instructions: administer into each nostril Jardiance 10 mg Tablet 10 mg PO DAILY magnesium oxide 400 mg magnesium Tablet 400 mg PO BID metoprolol succinate 25 mg Tablet Extended Release 24 Hr 25 mg PO DAILY levothyroxine [Synthroid] 50 mcg Tablet 50 mcg PO DAILY Referrals Referrals: Memo Lora MD [Primary Care Provider] -
[2023-03-10 14:45] LABS: Basophils # (auto) 0.04 K/uL (0-0.2); Basophils % (auto) 0.7 %; Eosinophils # (auto) 0.08 K/uL (0-0.50); Eosinophils % (auto) 1.3 %; Hematocrit (blood only) 31.1 % (42.0-52.0); Hemoglobin 9.5 g/dl (14.0-18.0); Immature Granulocytes # (auto) 0.02 K/uL (0.01-0.20); Immature Granulocytes % (auto) 0.3 %; Lymphocytes # (auto) 0.91 K/uL (1.2-3.4); Lymphocytes % (auto) 15.1 %; Mean Corpuscular Hemoglobin 26.7 pg (25.0-34.0); Mean Corpuscular Hgb Conc 30.5 g/dL (32.0-36.0); Mean Corpuscular Volume 87.4 fL (80.0-100.0); Mean Platelet Volume 12.4 fL (9.4-12.4); Monocytes # (auto) 0.78 K/uL (0.11-0.59); Neutrophils # (auto) 4.19 K/uL (1.40-6.50); Neutrophils % (auto) 69.6 %; Platelet Count 229 K/uL (130-400); RDW Coefficient of Variation 16.1 % (11.5-14.5); RDW Standard Deviation 51.3 fL (36.4-46.3); Red Blood Count 3.56 M/uL (4.70-6.10); White Blood Count 6.02 K/ul (4.8-10.8)
[2023-03-10 15:03] LABS: Albumin Globulin Ratio 1.8 (0.9-2); BUN Creatinine Ratio 33.1 (10-20); Bilirubin,Total 0.8 mg/dl (0.2-1.0); Calcium 8.9 mg/dl (8.6-10.3); Creatinine Clr Calc Pharmacy 56.5 ml/min; Est GFR (African American) 66.4 ml/min; Est GFR (Non-African American) 57.3 ml/min; Globulin 2.2 gm/dl (2.5-4.0); Magnesium 1.9 mg/dl (1.7-2.4); Potassium 4.8 mmol/L (3.5-5.1); Total Protein 6.2 gm/dl (6.0-8.3)
[2023-03-10 15:09] LABS: Troponin I High Sensitivity 24.8 pg/ml (0-20)
--- NOTE | 2023-03-10 15:11 | XRay Report ---
XR chest 1V portable CLINICAL HISTORY: Dyspnea. COMPARISON STUDY: Chest radiograph December 16, 2022. FINDINGS: There are median sternotomy wires. Suspected defibrillator device is incidentally noted. Ca rdiomegaly is unchanged. There is a trace right pleural effusion. There is no pneumothorax. There is no consolidation to suggest pneumonia. Linear right basilar densities favor atelectasis or scarring. There is pulmonary vascular congestion without overt pulmonary edema. IMPRESSION: Cardiomegaly. Pulmonary vascular congestion with a trace right pleural effusion. ACT 112: Negative or not required by law. Electronically signed by: Sloan Jennings M.D. 03/10/2023 3:10 PM
[2023-03-10 15:23] LABS: INR 1.2 (0.9-1.1); Partial Thromboplastin Ratio 0.9; Partial Thromboplastin Time 25.9 Seconds (21.0-31.0)
--- NOTE | 2023-03-10 15:54 | History & Physical Report ---
Date of Service March 10, 2023 Assessment & Plan (1) Elevated troponin I level: Plan: Shortness of breath, suspect symptomatic anemia Hemoglobin 9.5, last 8.. This was 9.8 yesterday in [place] Patient has had 1 month of intermittent blood per rectum, and 2 days of increasing melena/black bowel movements. No epigastric pain 1 month ago GI follow-up from prior GI bleed had Carafate discontinued and switched to daily PPI No leukocytosis BUN is elevated at 41, baseline is normal and was previously elevated to 4070 with prior GI bleed Creatinine on admission 1.24 High-sensitivity troponin 24.8, no baseline available for comparison COVID is negative CXR: Pulmonary vascular congestion with trace right pleural effusion. No consolidations to suggest pneumonia. Eliquis held. Patient aware that there is a risk of DVT propagation/PE while held. If unable to correct source of bleeding with GI intervention, will need to consult vascular for filter evaluate PPI IV twice daily ordered GI consulted Heart failure with reduced ejection fraction, CAD No chest pain or chest pressure at any point. He feels easily winded and short of breath with exertion Pulmonary vascular congestion is noted on x-ray without overt edema, there is a trace effusion as noted We will give 1 dose of oral Lasix, he has been off of this for 1 month. Defer overaggressive diuresis in the setting of bleeding. He is hypertensive and is not tachycardic at time of admission Troponin is slightly elevated, will trend and obtain updated limited echo EKG ordered Aspirin is held. Patient has a history of prior failed stent, subsequently had double bypass and follows with [place] [facility] No lower extremity edema on admission Metoprolol continued, do not hold for risk of beta-benson withdrawal Peripheral artery disease Asymptomatic previously, poor perfusion with decreased EF on prior vascular evaluation. No acute change in management Aspirin held for acute bleeding History of DVT Was continued on and December. This is held as noted DM2 Jardiance held Admitting BSG 111, adequately controlled and patient is n.p.o. Conservative sliding scale as needed. Goal BSG 069713 DVT prophylaxis: Anticoagulation held for acute bleed Diet: N.p.o. Maintenance fluids deferred due to heart failure with mild pulmonary vascular congestion and trace volume overload. Bolus as clinically indicated. No HAIM CODE STATUS: DNR/DNI. Discussed with patient and his son Leroy at bedside Disposition: PCU for GI bleed with troponin trend (2) DVT (deep venous thrombosis): (3) Gastric AVM: (4) Acute GI bleeding: (5) Hypothyroidism: (6) CAD (coronary artery disease): (7) Elevated troponin: History of Present Illness Primary Care Provider: Memo Lora MD Leroy is a 72-year-old male with a past medical history of admission 12/09/2022 - 12/19/2022 for GI bleed due to angiodysplasia, hematuria, LV mural thrombus, heart failure with reduced ejection fraction, gout, Achilles tendinitis, hypothyroidism. At last hospitalization: Had seen 3 hospitals over 2 weeks for ongoing GI leading and required 8 units of transfusion at outside hospitals. While inpatient here was found to have gastric AVM with active bleeding and s/p clip placed. Gastric ulcer was clipped, no active bleeding at that site. Was continued on Protonix and was stable following this. He was treated while inpatient for possible superimposed pneumonia with cefepime and was found to have a left lower lobe pneumonia on chest x-ray. He did have a history of lower extremity DVT diagnosed 12/13/2022, was restarted on Eliquis at time of discharge. 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 He is anticoagulated Echo 11/2022: EF 25-30% with small apical thrombus, suspect endothelialized and unlikely to embolize at that time. Ongoing follows with Dr. [place] cardiology. Presents to the emergency department dyspnea on exertion worsening over the last few months. No chest pain or chest pressure. No lower extremity swelling. Some bright red blood per rectum. He was discharged from [facility] yesterday after a rectal exam was positive for blood. snowflake yesterday --> 9.8 hgb bum 30 went to protonix BID Per Pt: Leroy reports he was here last month for a GIB last month. He did have a followup with Chelsi Solano last month and was instructed to stop taking Sucralfate after that appointment. Started having bleeding again 4 weeks ago. Once per day, bloody BM. Having black BMs, 1x today 3pm and once mixed with red last night. No lightheadedness or dizziness. Does very easily winded and short of breath, exercise limited. No chest pain, no chest pressure. NO fevers, chills, or sweats. NO abdominal pain, did nt ohave pain with his last GIB. No syncope or presyncope Has a hx of heart failure, double bipass, 1x failed stent prior to bipass. Used to take lasix, was taken off between multiple hospitalizations around 1 months ago while at rehab. DVT in L leg. On eliquis twice Mural thrombus 10 years old, follows w/ Dr. [place] ICD in place, never fired - Went to [facility] to have blood work done, was found Had bermudian fries/meatballs 11am today Medical History: Reviewed Medications: Reviewed Surgical History: Reviewed Family history: Reviewed Allergies: Reviewed Social History: No tobacco or ETOH products Code Status: DNR/DNI Allergies Allergy/AdvReac Type Severity Reaction Status Date / Time allopurinol [From Zyloprim] Allergy Vomiting Verified 03/10/23 14:37 clopidogrel [From Plavix] Allergy Unknown Verified 03/10/23 14:37 atorvastatin AdvReac Unknown Verified 03/10/23 14:37 rosuvastatin [From Crestor] AdvReac Unknown Verified 03/10/23 14:37 simvastatin [From Zocor] AdvReac Unknown Verified 03/10/23 14:37 Home Medications Medication Instructions Recorded Confirmed Type apixaban 5 mg tablet (Eliquis) 5 mg BID 12/09/22 03/10/23 History aspirin 81 mg tablet,delayed 81 mg PO DAILY 12/09/22 03/10/23 History release (Enteric Coated Aspirin) cholecalciferol (vitamin D3) 250 500 mcg PO DAILY 12/09/22 03/10/23 History mcg (10,000 unit) tablet cyanocobalamin (vitamin B-12) 1,000 mcg PO DAILY 12/09/22 03/10/23 History 1,000 mcg capsule empagliflozin 10 mg tablet 10 mg PO DAILY 12/09/22 03/10/23 History (Jardiance) ferrous sulfate 325 mg (65 mg 325 mg PO Q OTHER DAY 12/09/22 03/10/23 History iron) capsule,extended release fluticasone propionate 50 2 spray intranasal DAILY 12/09/22 03/10/23 History mcg/actuation nasal spray,suspension levothyroxine 50 mcg tablet 50 mcg PO DAILY 12/09/22 03/10/23 History (Synthroid) magnesium oxide 400 mg PO BID 12/09/22 03/10/23 History metoprolol succinate 25 mg 25 mg PO DAILY 12/09/22 03/10/23 History tablet,extended release 24 hr atorvastatin 40 mg tablet 10 mg PO HS 01/24/23 03/10/23 History pantoprazole 40 mg tablet,delayed 40 mg PO BID #60 tabs 03/08/23 03/10/23 Rx release (Protonix) febuxostat 40 mg tablet 40 mg PO DAILY 03/10/23 03/10/23 History spironolactone 25 mg tablet 25 mg PO DAILY 03/10/23 03/10/23 History Past Med/Surg History Medical History CAD (coronary artery disease) Gout HFrEF (heart failure with reduced ejection fraction) Hypothyroidism LV (left ventricular) mural thrombus PAD (peripheral artery disease) Surgical History AICD (automatic cardioverter/defibrillator) present H/O esophagogastroduodenoscopy H/O hemorrhoidectomy History of rectal sphincterotomy Hx of cholecystectomy S/P CABG (coronary artery bypass graft) Social History Smoking Status: Former smoker Second Hand Exposure: No; Hx Alcohol Use: No Hx Substance Use: No Preferred Language: Slovenian Communication Ability: Effective Rn Lactation Consultant Required: No Beliefs That Will Affect Care: None Current Living Situation: Alone Feels Safe at Home: Yes Assistive Devices: Cane and Walker Review of Systems Review of Systems: All systems reviewed & are unremarkable except as noted in HPI & below Physical Exam Physical Exam: General: A&Ox3. NAD. Cooperative. Pallor is present HEENT: Atraumatic, normocephalic. Vision/hearing grossly Pulm: CTAB A&P. -wheezes, -rales, -rhonchi. Symmetrical chest rise. No increased work of breathing. No respiratory distress. Cardiac: RRR, -mrg. Radial pulses intact and symmetrical. ICD present. JVD is not present Abdominal: Nontender, nondistended, soft. BS present. Extremities: Warm, dry. Pale. No pitting edema is present. Sensation of soft touch in upper and lower extremities is present bilaterally, moves all extrem ities equally Results & Data Results & Data Vital Signs (Past 12 Hours) Vital Signs Temp Pulse Resp BP Pulse Ox O2 Del Method 03/10/23 14:46 100 Room Air 03/10/23 14:46 100 Room Air 03/10/23 14:28 86 03/10/23 14:08 37.1 C 86 20 147/75 H 100 Room Air PG Care Time/CCT Total # of Minutes Spent Total Time Spent with Patient: Total time spent is greater than 50% in coordination of care (as documented) at patient's floor/unit and/or counseling patient: Coding Level of Care Code 35609 INT INP/OBS CARE 3/75MIN Diagnoses Elevated troponin I level R77.8 DVT (deep venous thrombosis) I82.409 Gastric AVM K31.819 Acute GI bleeding K92.2 Hypothyroidism E03.9 CAD (coronary artery disease) I25.10 Elevated troponin R77.8
[2023-03-10] MEDS ORDERED: GLUCOSE 10 TAB/TUBE PO PRN (16:30)
[2023-03-10] MEDS ORDERED: INSULIN ASPART PER UNIT CHARGE SC SCH (16:30)
[2023-03-10] MEDS ORDERED: GLUCOSE 40% GEL 15 GM TUBE PO PRN (16:30)
[2023-03-10] MEDS ORDERED: DEXTROSE 50% 50 ML SYRINGE IV PRN (16:30)
[2023-03-10] MEDS ORDERED: CARBOHYDRATES FOR HYPOGLYCEMIA PO PRN (16:30)
[2023-03-10] MEDS ORDERED: GLUCAGON FOR INJ 1 MG VIAL SQ PRN (16:30)
[2023-03-10 16:43] LABS: Appearance Urine Clear (Clear); Bacteria Urine Automated Negative (Negative); Bilirubin Urine Negative (Negative); Blood Urine 2+ (Negative); Cast Urine Automated 0 /lpf (0-5); Color Urine Yellow; Epithelial Cell Urine Auto 0-5 /lpf (0-5); Glucose Urine UA 3+ (Negative); Ketones Urine Negative (Negative); Leukocyte Esterase Urine Negative (Negative); Nitrite Urine Negative (Negative); Protein Urine Negative (Negative); RBC Urine Automated >30 /hpf (0-4); Specific Gravity Urine 1.021 (1.000-1.030); Urobilinogen Urine Negative (Negative); WBC Urine Automated 0 /hpf (0-5); pH Urine 6.5 (4.5-7.5)
[2023-03-10] MEDS ORDERED: FUROSEMIDE 20 MG TAB PO ONE (17:59)
[2023-03-10] MEDS ORDERED: SODIUM CHLORIDE 0.9% 250 ML IV PRN (17:59)
[2023-03-10] MEDS ORDERED: Nursing to Pharmacy Communication SCH (18:30)
[2023-03-10 20:15] LABS: Hematocrit (blood only) 27.7 % (42.0-52.0); Hemoglobin 8.5 g/dl (14.0-18.0)
[2023-03-10] MEDS: PANTOprazole 40 MG in SYRINGE 0 ML IV SCH (21:43)
[2023-03-11] MEDS: INSULIN ASPART PER UNIT CHARGE SC SCH ×4 (04:06→22:00)
[2023-03-11] MEDS: LEVOTHYROXINE SODIUM 50 MCG TABLET PO SCH (06:38)
[2023-03-11 07:36] LABS: Basophils # (auto) 0.05 K/uL (0-0.2); Basophils % (auto) 0.9 %; Eosinophils % (auto) 1.8 %; Hematocrit (blood only) 27.3 % (42.0-52.0); Hemoglobin 8.4 g/dl (14.0-18.0); Immature Granulocytes # (auto) 0.01 K/uL (0.01-0.20); Immature Granulocytes % (auto) 0.2 %; Lymphocytes # (auto) 1.26 K/uL (1.2-3.4); Lymphocytes % (auto) 22.3 %; Mean Corpuscular Hemoglobin 25.9 pg (25.0-34.0); Mean Corpuscular Hgb Conc 30.8 g/dL (32.0-36.0); Mean Corpuscular Volume 84.3 fL (80.0-100.0); Mean Platelet Volume 12.8 fL (9.4-12.4); Monocytes # (auto) 0.74 K/uL (0.11-0.59); Monocytes % (auto) 13.1 %; Neutrophils # (auto) 3.48 K/uL (1.40-6.50); Neutrophils % (auto) 61.7 %; Platelet Count 208 K/uL (130-400); RDW Coefficient of Variation 15.9 % (11.5-14.5); RDW Standard Deviation 48.2 fL (36.4-46.3); Red Blood Count 3.24 M/uL (4.70-6.10); White Blood Count 5.64 K/ul (4.8-10.8)
[2023-03-11 07:54] LABS: BUN Creatinine Ratio 31.9 (10-20); Creatinine Clr Calc Pharmacy 58.9 ml/min; Est GFR (African American) 69.8 ml/min; Est GFR (Non-African American) 60.2 ml/min; Potassium 4.2 mmol/L (3.5-5.1)
[2023-03-11] MEDS: PANTOprazole 40 MG in SYRINGE 0 ML IV SCH ×2 (08:22→21:34)
--- NOTE | 2023-03-11 08:37 | Electrocardiogram Report ---
Test Reason : Blood Pressure : / mmHG Vent. 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
--- NOTE | 2023-03-11 08:38 | Electrocardiogram Report ---
Test Reason : Blood Pressure : / mmHG Vent. 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 Lateral leads Abnormal ECG When compared with ECG of 10-MAR-2023 14:19, Premature ventricular complexes are now Present Premature atrial complexes are now Present Confirmed by Joey Wolfe ([id number]) on 03/11/2023 8:37:51 AM Referred By: Provider Outside Confirmed By:Joey Wolfe
--- NOTE | 2023-03-11 09:14 | XCELERA ---
[id number]
[2023-03-11] MEDS: METOPROLOL SUCC 25MG EXT REL TAB PO SCH (09:50)
--- NOTE | 2023-03-11 10:57 | Hospitalist Progress Note ---
Date of Service March 11, 2023 Assessment & Plan (1) Elevated troponin I level: Plan: Patient has had 1 month of intermittent blood per rectum, and 2 days of increasing melena/black bowel movements. 1 month ago GI follow-up from prior GI bleed had Carafate discontinued and switched to daily PPI. Patient is pale and experiencing shortness of breath with exertion. No chest pain, no epigastric pain. Acute exacerbation of HFrEF He feels easily winded and short of breath with exertion Pulmonary vascular congestion is noted on x-ray without overt edema, there is a trace effusion as noted Given a dose of lasix with improvement in symptoms. - Neg 2L fluid balance. - exacerbation possibly in setting of anemia and CMP Mild troponin elevation CAD Troponin is slightly elevated - steady in 20s with multiple readings. - Limited echo with slight improvement in EF 30-35%. with wall motion abnormality. Apical clot resolved. Aspirin is held. -Has h/o prior failed stent, subsequently had double bypass and follows with [place] [facility] - Has an upcoming appointment for placement of a drug eluding stent Metoprolol continued, do not hold for risk of beta-benson withdrawal Symptomatic chronic anemia with melena Hemoglobin 8.4, -- down from 9.8 yesterday in [place]. Stable since admission at 8.5 Eliquis held. PPI IV twice daily ordered GI consulted: - Plan for EGD tomorrow - NPO at midnight Left ventricle thrombus Holding Eliquis Peripheral artery disease. Aspirin held for acute bleeding DM2 Jardiance held Admitting BSG 111, adequately controlled and patient is n.p.o. Conservative sliding scale as needed. Goal BSG 262022 DVT prophylaxis: Anticoagulation held for acute bleed. SCD ordered Diet: N.p.o. at midnight. Maintenance fluids deferred due to heart failure with mild pulmonary vascular congestion and trace volume overload. Bolus as clinically indicated. No HAIM CODE STATUS: DNR/DNI. Disposition: PCU for GI bleed with troponin trend (2) DVT (deep venous thrombosis): (3) Gastric AVM: (4) Acute GI bleeding: (5) Hypothyroidism: (6) CAD (coronary artery disease): (7) Elevated troponin: Admission and Anticipated Discharge Date Admission Date: March 10, 2023 Supervising Physician Co-Signing Physician Notes Medical Student Supervision Note: I was personally present during medical student patient encounter and independently interviewed and examined the patient and verified the britton history and physical, reviewed labs and image studies, discussed the case with Monie Olivas and agree with the findings and care plan. Symptomatic anemia with melena - h/h stable. GI consult - for scope in am. Acute HFrEF - s/p one dose lasix with adequate diuresis. CAD - Holding aspirin. is scheduled to have stent placement Left ventricle clot - eliquis on hold. Echo with resolved clot and EF slightly better. Subjective 03/11: Leroy is resting comfortably in bed. Reports no shortness of breath and no pain. Is frustrated with NPO status, but no other concerns at this time. Physical Exam Physical Exam: General: A&Ox3. NAD. Cooperative.Pallor is present HEENT: Atraumatic, normocephalic. Vision/hearing grossly intact Pulm: Clear bilaterally. No increased work of breathing at rest. No respiratory distress. Cardiac: RRR, no rubs murmurs or gallops. Radial pulses intact and symmetrical. Abdominal: Nontender, nondistended, soft. Normoactive bowel sounds present. Extremities: Warm, dry.Pale.No edema.Moves all extremities equally Results & Data Results & Data Vital Signs (Past 12 Hours) Vital Signs Temp Pulse Pulse Resp BP Pulse Ox O2 Del Method 03/11/23 07:51 36.5 C 77 20 112/73 100 Room Air 03/11/23 03:00 36.4 C L 68 17 112/60 99 Room Air 03/11/23 00:00 77 03/10/23 23:00 36.3 C L 83 17 123/73 100 Room Air
--- NOTE | 2023-03-11 14:45 | Gastrointestinal Consultation ---
Date of Consultation March 11, 2023 Assessment & Plan (1) Anemia: He has chronic anemia with recurrent melena. His H/H are not too different so I am not certain about significance at this time. I do think repeat EGD is warranted, less likely for new issues in colon. Will plan for tomorrow. 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 He says four weeks ago he passed some bright red blood he says was mixed with the stool. The stool was solid though. Then since then he has seen black stools that got worse over the two days prior to admit. Hemoglobin on admission was >9 which is stable. It has dropped to 8.5 overnight. He has no complaints with his GI tract otherwise though. He has stopped eliquis though. Allergies Allergy/AdvReac Type Severity Reaction Status Date / Time allopurinol [From Zyloprim] Allergy Vomiting Verified 03/10/23 14:37 clopidogrel [From Plavix] Allergy Unknown Verified 03/10/23 14:37 atorvastatin AdvReac Unknown Verified 03/10/23 14:37 rosuvastatin [From Crestor] AdvReac Unknown Verified 03/10/23 14:37 simvastatin [From Zocor] AdvReac Unknown Verified 03/10/23 14:37 Home Medications Medication Instructions Recorded Confirmed Type apixaban 5 mg tablet (Eliquis) 5 mg BID 12/09/22 03/10/23 History aspirin 81 mg tablet,delayed 81 mg PO DAILY 12/09/22 03/10/23 History release (Enteric Coated Aspirin) cholecalciferol (vitamin D3) 250 500 mcg PO DAILY 12/09/22 03/10/23 History mcg (10,000 unit) tablet cyanocobalamin (vitamin B-12) 1,000 mcg PO DAILY 12/09/22 03/10/23 History 1,000 mcg capsule empagliflozin 10 mg tablet 10 mg PO DAILY 12/09/22 03/10/23 History (Jardiance) ferrous sulfate 325 mg (65 mg 325 mg PO Q OTHER DAY 12/09/22 03/10/23 History iron) capsule,extended release fluticasone propionate 50 2 spray intranasal DAILY 12/09/22 03/10/23 History mcg/actuation nasal spray,suspension levothyroxine 50 mcg tablet 50 mcg PO DAILY 12/09/22 03/10/23 History (Synthroid) magnesium oxide 400 mg PO BID 12/09/22 03/10/23 History metoprolol succinate 25 mg 25 mg PO DAILY 12/09/22 03/10/23 History tablet,extended release 24 hr atorvastatin 40 mg tablet 10 mg PO HS 01/24/23 03/10/23 History pantoprazole 40 mg tablet,delayed 40 mg PO BID #60 tabs 03/08/23 03/10/23 Rx release (Protonix) febuxostat 40 mg tablet 40 mg PO DAILY 03/10/23 03/10/23 History spironolactone 25 mg tablet 25 mg PO DAILY 03/10/23 03/10/23 History Patient History Medical History CAD (coronary artery disease) Gout HFrEF (heart failure with reduced ejection fraction) Hypothyroidism LV (left ventricular) mural thrombus PAD (peripheral artery disease) Surgical History AICD (automatic cardioverter/defibrillator) present H/O esophagogastroduodenoscopy H/O hemorrhoidectomy History of rectal sphincterotomy Hx of cholecystectomy S/P CABG (coronary artery bypass graft) Social History Smoking Status: Former smoker Second Hand Exposure: No; Hx Alcohol Use: No Hx Substance Use: No Preferred Language: Norwegian Communication Ability: Effective Security Clerk Required: No Beliefs That Will Affect Care: None Current Living Situation: Alone Feels Safe at Home: Yes Safety Concerns: Feels Safe At This Time Assistive Devices: Cane Review of Systems Review of Systems: All systems reviewed & are unremarkable except as noted in HPI & below Physical Exam Physical Exam: Pleasant pale, elderly man in no distress Constitutional: WD/WN, vitals as above Neck: trachea midline, no thyromegaly Respiratory: normal respiratory effort, lungs clear to auscultation Cardiovascular: RRR, no murmur, no edema Gastrointestinal (Abdomen): normal bowel sounds, soft, nontender, no hepatosplenomegaly Musculoskeletal: Extremities: extremities normal to inspection Results & Data Vital Signs (Past 12 Hours) Vital Signs Temp Pulse Pulse Resp BP Pulse Ox O2 Del Method 03/11/23 08:00 74 03/11/23 11:25 36.9 C 76 20 130/72 100 Room Air 03/11/23 07:51 36.5 C 77 20 112/73 100 Room Air 03/11/23 03:00 36.4 C L 68 17 112/60 99 Room Air Laboratory Results 03/11/23 03/11/23 03/11/23 Range/Units 12:03 11:47 06:54 WBC (4.8-10.8) K/ul RBC (4.70-6.10) M/uL Hgb (14.0-18.0) g/dl Hct (42.0-52.0) % MCV (80.0-100.0) fL MCH (25.0-34.0) pg MCHC (32.0-36.0) g/dL RDW Std Deviation (36.4-46.3) fL RDW Coeff of Gena (11.5-14.5) % Plt Count (130-400) K/uL MPV (9.4-12.4) fL Immature Gran % (Auto) % Neut % (Auto) % Lymph % (Auto) % Antelope % (Auto) % Eos % (Auto) % Baso % (Auto) % Neut # (Auto) (1.40-6.50) K/uL Lymph # (Auto) (1.2-3.4) K/uL Antelope # (Auto) (0.11-0.59) K/uL Eos # (Auto) (0-0.50) K/uL Baso # (Auto) (0-0.2) K/uL Immature Gran # (Auto) (0.01-0.20) K/uL PT (9.0-12.0) Seconds INR (0.9-1.1) APTT (21.0-31.0) Seconds PTT Ratio Sodium (136-145) mmol/L Potassium (3.5-5.1) mmol/L Chloride (98-107) mmol/L Carbon Dioxide (21-32) mmol/L Anion Gap (3-11) BUN (6-23) mg/dl Creatinine (0.6-1.4) mg/dl Est Cr Clr Drug Dosing ml/min Est GFR ( Amer) ml/min Est GFR (Non-Af Amer) ml/min BUN/Creatinine Ratio (10-20) Glucose (70-99(Fasting)) mg/dl POC Glucose 116 H (70-99) mg/dl Calcium (8.6-10.3) mg/dl Magnesium (1.7-2.4) mg/dl Total Bilirubin (0.2-1.0) mg/dl AST (13-39) U/L ALT (7-52) U/L Alkaline Phosphatase (34-104) U/L Troponin I High Sens 23.9 H 25.8 H (0-20) pg/ml Total Protein (6.0-8.3) gm/dl Albumin (3.4-5.0) gm/dl Globulin (2.5-4.0) gm/dl Albumin/Globulin Ratio (0.9-2) Urine Color Urine Appearance (Clear) Urine pH (4.5-7.5) Ur Specific [place] (1.000-1.030) Urine Protein (Negative) Urine Glucose (UA) (Negative) Urine Ketones (Negative) Urine Blood (Negative) Urine Nitrite (Negative) Urine Bilirubin (Negative) Urine Urobilinogen (Negative) Ur Leukocyte Esterase (Negative) Urine WBC (Auto) (0-5) /hpf Urine RBC (Auto) (0-4) /hpf U Hyaline Cast (Auto) (0-5) /lpf U Epithel Cells (Auto) (0-5) /lpf Urine Bacteria (Auto) (Negative) SARS-CoV-2, RNA, NAAT (NEGATIVE) Blood Type Antibody Screen Crossmatch 03/11/23 03/11/23 03/11/23 Range/Units 06:54 06:54 00:36 WBC 5.64 (4.8-10.8) K/ul RBC 3.24 L (4.70-6.10) M/uL Hgb 8.4 L (14.0-18.0) g/dl Hct 27.3 L (42.0-52.0) % MCV 84.3 (80.0-100.0) fL MCH 25.9 (25.0-34.0) pg MCHC 30.8 L (32.0-36.0) g/dL RDW Std Deviation 48.2 H (36.4-46.3) fL RDW Coeff of Gena 15.9 H (11.5-14.5) % Plt Count 208 (130-400) K/uL MPV 12.8 H (9.4-12.4) fL Immature Gran % (Auto) 0.2 % Neut % (Auto) 61.7 % Lymph % (Auto) 22.3 % Antelope % (Auto) 13.1 % Eos % (Auto) 1.8 % Baso % (Auto) 0.9 % Neut # (Auto) 3.48 (1.40-6.50) K/uL Lymph # (Auto) 1.26 (1.2-3.4) K/uL Antelope # (Auto) 0.74 H (0.11-0.59) K/uL Eos # (Auto) 0.10 (0-0.50) K/uL Baso # (Auto) 0.05 (0-0.2) K/uL Immature Gran # (Auto) 0.01 (0.01-0.20) K/uL PT (9.0-12.0) Seconds INR (0.9-1.1) APTT (21.0-31.0) Seconds PTT Ratio Sodium 138 (136-145) mmol/L Potassium 4.2 (3.5-5.1) mmol/L Chloride 106 (98-107) mmol/L Carbon Dioxide 25 (21-32) mmol/L Anion Gap 7 (3-11) BUN 38 H (6-23) mg/dl Creatinine 1.19 (0.6-1.4) mg/dl Est Cr Clr Drug Dosing 58.9 ml/min Est GFR ( Amer) 69.8 ml/min Est GFR (Non-Af Amer) 60.2 ml/min BUN/Creatinine Ratio 31.9 H (10-20) Glucose 99 (70-99(Fasting)) mg/dl POC Glucose (70-99) mg/dl Calcium 9.0 (8.6-10.3) mg/dl Magnesium (1.7-2.4) mg/dl Total Bilirubin (0.2-1.0) mg/dl AST (13-39) U/L ALT (7-52) U/L Alkaline Phosphatase (34-104) U/L Troponin I High Sens 26.0 H (0-20) pg/ml Total Protein (6.0-8.3) gm/dl Albumin (3.4-5.0) gm/dl Globulin (2.5-4.0) gm/dl Albumin/Globulin Ratio (0.9-2) Urine Color Urine Appearance (Clear) Urine pH (4.5-7.5) Ur Specific [place] (1.000-1.030) Urine Protein (Negative) Urine Glucose (UA) (Negative) Urine Ketones (Negative) Urine Blood (Negative) Urine Nitrite (Negative) Urine Bilirubin (Negative) Urine Urobilinogen (Negative) Ur Leukocyte Esterase (Negative) Urine WBC (Auto) (0-5) /hpf Urine RBC (Auto) (0-4) /hpf U Hyaline Cast (Auto) (0-5) /lpf U Epithel Cells (Auto) (0-5) /lpf Urine Bacteria (Auto) (Negative) SARS-CoV-2, RNA, NAAT (NEGATIVE) Blood Type Antibody Screen Crossmatch 03/10/23 03/10/23 03/10/23 Range/Units Unknown Unknown 20:31 WBC (4.8-10.8) K/ul RBC (4.70-6.10) M/uL Hgb (14.0-18.0) g/dl Hct (42.0-52.0) % MCV (80.0-100.0) fL MCH (25.0-34.0) pg MCHC (32.0-36.0) g/dL RDW Std Deviation (36.4-46.3) fL RDW Coeff of Gena (11.5-14.5) % Plt Count (130-400) K/uL MPV (9.4-12.4) fL Immature Gran % (Auto) % Neut % (Auto) % Lymph % (Auto) % Antelope % (Auto) % Eos % (Auto) % Baso % (Auto) % Neut # (Auto) (1.40-6.50) K/uL Lymph # (Auto) (1.2-3.4) K/uL Antelope # (Auto) (0.11-0.59) K/uL Eos # (Auto) (0-0.50) K/uL Baso # (Auto) (0-0.2) K/uL Immature Gran # (Auto) (0.01-0.20) K/uL PT (9.0-12.0) Seconds INR (0.9-1.1) APTT (21.0-31.0) Seconds PTT Ratio Sodium (136-145) mmol/L Potassium (3.5-5.1) mmol/L Chloride (98-107) mmol/L Carbon Dioxide (21-32) mmol/L Anion Gap (3-11) BUN (6-23) mg/dl Creatinine (0.6-1.4) mg/dl Est Cr Clr Drug Dosing ml/min Est GFR ( Amer) ml/min Est GFR (Non-Af Amer) ml/min BUN/Creatinine Ratio (10-20) Glucose (70-99(Fasting)) mg/dl POC Glucose 101 H (70-99) mg/dl Calcium (8.6-10.3) mg/dl Magnesium (1.7-2.4) mg/dl Total Bilirubin (0.2-1.0) mg/dl AST (13-39) U/L ALT (7-52) U/L Alkaline Phosphatase (34-104) U/L Troponin I High Sens (0-20) pg/ml Total Protein (6.0-8.3) gm/dl Albumin (3.4-5.0) gm/dl Globulin (2.5-4.0) gm/dl Albumin/Globulin Ratio (0.9-2) Urine Color Yellow Urine Appearance Clear (Clear) Urine pH 6.5 (4.5-7.5) Ur Specific [place] 1.021 (1.000-1.030) Urine Protein Negative (Negative) Urine Glucose (UA) 3+ H (Negative) Urine Ketones Negative (Negative) Urine Blood 2+ H (Negative) Urine Nitrite Negative (Negative) Urine Bilirubin Negative (Negative) Urine Urobilinogen Negative (Negative) Ur Leukocyte Esterase Negative (Negative) Urine WBC (Auto) 0 (0-5) /hpf Urine RBC (Auto) >30 H (0-4) /hpf U Hyaline Cast (Auto) 0 (0-5) /lpf U Epithel Cells (Auto) 0-5 (0-5) /lpf Urine Bacteria (Auto) Negative (Negative) SARS-CoV-2, RNA, NAAT NEGATIVE (NEGATIVE) Blood Type Antibody Screen Crossmatch 03/10/23 03/10/23 03/10/23 Range/Units 19:49 19:49 17:45 WBC (4.8-10.8) K/ul RBC (4.70-6.10) M/uL Hgb 8.5 L (14.0-18.0) g/dl Hct 27.7 L (42.0-52.0) % MCV (80.0-100.0) fL MCH (25.0-34.0) pg MCHC (32.0-36.0) g/dL RDW Std Deviation (36.4-46.3) fL RDW Coeff of Gena (11.5-14.5) % Plt Count (130-400) K/uL MPV (9.4-12.4) fL Immature Gran % (Auto) % Neut % (Auto) % Lymph % (Auto) % Antelope % (Auto) % Eos % (Auto) % Baso % (Auto) % Neut # (Auto) (1.40-6.50) K/uL Lymph # (Auto) (1.2-3.4) K/uL Antelope # (Auto) (0.11-0.59) K/uL Eos # (Auto) (0-0.50) K/uL Baso # (Auto) (0-0.2) K/uL Immature Gran # (Auto) (0.01-0.20) K/uL PT (9.0-12.0) Seconds INR (0.9-1.1) APTT (21.0-31.0) Seconds PTT Ratio Sodium (136-145) mmol/L Potassium (3.5-5.1) mmol/L Chloride (98-107) mmol/L Carbon Dioxide (21-32) mmol/L Anion Gap (3-11) BUN (6-23) mg/dl Creatinine (0.6-1.4) mg/dl Est Cr Clr Drug Dosing ml/min Est GFR ( Amer) ml/min Est GFR (Non-Af Amer) ml/min BUN/Creatinine Ratio (10-20) Glucose (70-99(Fasting)) mg/dl POC Glucose 111 H (70-99) mg/dl Calcium (8.6-10.3) mg/dl Magnesium (1.7-2.4) mg/dl Total Bilirubin (0.2-1.0) mg/dl AST (13-39) U/L ALT (7-52) U/L Alkaline Phosphatase (34-104) U/L Troponin I High Sens 22.5 H (0-20) pg/ml Total Protein (6.0-8.3) gm/dl Albumin (3.4-5.0) gm/dl Globulin (2.5-4.0) gm/dl Albumin/Globulin Ratio (0.9-2) Urine Color Urine Appearance (Clear) Urine pH (4.5-7.5) Ur Specific [place] (1.000-1.030) Urine Protein (Negative) Urine Glucose (UA) (Negative) Urine Ketones (Negative) Urine Blood (Negative) Urine Nitrite (Negative) Urine Bilirubin (Negative) Urine Urobilinogen (Negative) Ur Leukocyte Esterase (Negative) Urine WBC (Auto) (0-5) /hpf Urine RBC (Auto) (0-4) /hpf U Hyaline Cast (Auto) (0-5) /lpf U Epithel Cells (Auto) (0-5) /lpf Urine Bacteria (Auto) (Negative) SARS-CoV-2, RNA, NAAT (NEGATIVE) Blood Type Antibody Screen Crossmatch 03/10/23 03/10/23 03/10/23 Range/Units 14:50 14:28 14:28 WBC (4.8-10.8) K/ul RBC (4.70-6.10) M/uL Hgb (14.0-18.0) g/dl Hct (42.0-52.0) % MCV (80.0-100.0) fL MCH (25.0-34.0) pg MCHC (32.0-36.0) g/dL RDW Std Deviation (36.4-46.3) fL RDW Coeff of Gena (11.5-14.5) % Plt Count (130-400) K/uL MPV (9.4-12.4) fL Immature Gran % (Auto) % Neut % (Auto) % Lymph % (Auto) % [place]elope % (Auto) % Eos % (Auto) % Baso % (Auto) % Neut # (Auto) (1.40-6.50) K/uL Lymph # (Auto) (1.2-3.4) K/uL [place]elope # (Auto) (0.11-0.59) K/uL Eos # (Auto) (0-0.50) K/uL Baso # (Auto) (0-0.2) K/uL Immature Gran # (Auto) (0.01-0.20) K/uL PT 13.0 H (9.0-12.0) Seconds INR 1.2 H (0.9-1.1) APTT 25.9 (21.0-31.0) Seconds PTT Ratio 0.9 Sodium 137 (136-145) mmol/L Potassium 4.8 (3.5-5.1) mmol/L Chloride 107 (98-107) mmol/L Carbon Dioxide 23 (21-32) mmol/L Anion Gap 7 (3-11) BUN 41 H (6-23) mg/dl Creatinine 1.24 (0.6-1.4) mg/dl Est Cr Clr Drug Dosing 56.5 ml/min Est GFR ( Amer) 66.4 ml/min Est GFR (Non-Af Amer) 57.3 ml/min BUN/Creatinine Ratio 33.1 H (10-20) Glucose 111 H (70-99(Fasting)) mg/dl POC Glucose (70-99) mg/dl Calcium 8.9 (8.6-10.3) mg/dl Magnesium 1.9 (1.7-2.4) mg/dl Total Bilirubin 0.8 (0.2-1.0) mg/dl AST 18 (13-39) U/L ALT 10 (7-52) U/L Alkaline Phosphatase 58 (34-104) U/L Troponin I High Sens 24.8 H (0-20) pg/ml Total Protein 6.2 (6.0-8.3) gm/dl Albumin 4.0 (3.4-5.0) gm/dl Globulin 2.2 L (2.5-4.0) gm/dl Albumin/Globulin Ratio 1.8 (0.9-2) Urine Color Urine Appearance (Clear) Urine pH (4.5-7.5) Ur Specific [place] (1.000-1.030) Urine Protein (Negative) Urine Glucose (UA) (Negative) Urine Ketones (Negative) Urine Blood (Negative) Urine Nitrite (Negative) Urine Bilirubin (Negative) Urine Urobilinogen (Negative) Ur Leukocyte Esterase (Negative) Urine WBC (Auto) (0-5) /hpf Urine RBC (Auto) (0-4) /hpf U Hyaline Cast (Auto) (0-5) /lpf U Epithel Cells (Auto) (0-5) /lpf Urine Bacteria (Auto) (Negative) SARS-CoV-2, RNA, NAAT (NEGATIVE) Blood Type B Positive Antibody Screen NEGATIVE Crossmatch See Detail Diagnostic Findings Chest X-Ray 03/10/23 14:28 XR chest 1V portable CLINICAL HISTORY: Dyspnea. COMPARISON STUDY: Chest radiograph December 16, 2022. FINDINGS: There are median sternotomy wires. Suspected defibrillator device is incidentally noted. Cardiomegaly is unchanged. There is a trace right pleural effusion. There is no pneumothorax. There is no consolidation to suggest pn eumonia. Linear right basilar densities favor atelectasis or scarring. There is pulmonary vascular congestion without overt pulmonary edema. IMPRESSION: Cardiomegaly. Pulmonary vascular congestion with a trace right pleural effusion. ACT 112: Negative or not required by law. Electronically signed by: Sloan Jennings M.D. 03/10/2023 3:10 PM (1) Anemia Anemia type: unspecified type Qualified Code(s): D64.9 - Anemia, unspecified
[2023-03-11] MEDS ORDERED: Nursing to Pharmacy Communication SCH (17:30)
[2023-03-12] MEDS: LEVOTHYROXINE SODIUM 50 MCG TABLET PO SCH (05:57)
[2023-03-12 06:24] LABS: Basophils # (auto) 0.06 K/uL (0-0.2); Eosinophils # (auto) 0.13 K/uL (0-0.50); Eosinophils % (auto) 2.1 %; Hematocrit (blood only) 24.9 % (42.0-52.0); Hemoglobin 7.8 g/dl (14.0-18.0); Immature Granulocytes # (auto) 0.01 K/uL (0.01-0.20); Immature Granulocytes % (auto) 0.2 %; Lymphocytes # (auto) 1.09 K/uL (1.2-3.4); Lymphocytes % (auto) 17.8 %; Mean Corpuscular Hemoglobin 26.5 pg (25.0-34.0); Mean Corpuscular Hgb Conc 31.3 g/dL (32.0-36.0); Mean Corpuscular Volume 84.7 fL (80.0-100.0); Mean Platelet Volume 12.4 fL (9.4-12.4); Monocytes # (auto) 0.96 K/uL (0.11-0.59); Monocytes % (auto) 15.6 %; Neutrophils # (auto) 3.89 K/uL (1.40-6.50); Neutrophils % (auto) 63.3 %; Platelet Count 204 K/uL (130-400); RDW Coefficient of Variation 15.9 % (11.5-14.5); RDW Standard Deviation 47.8 fL (36.4-46.3); Red Blood Count 2.94 M/uL (4.70-6.10); White Blood Count 6.14 K/ul (4.8-10.8)
[2023-03-12 06:40] LABS: BUN Creatinine Ratio 32.1 (10-20); Calcium 8.8 mg/dl (8.6-10.3); Creatinine Clr Calc Pharmacy 52.3 ml/min; Est GFR (African American) 60.5 ml/min; Est GFR (Non-African American) 52.2 ml/min; Potassium 4.2 mmol/L (3.5-5.1)
[2023-03-12 06:45] LABS: Ovalocytes 1+; Polychromasia 2+
--- NOTE | 2023-03-12 08:00 | Hospitalist Progress Note ---
Date of Service March 12, 2023 Assessment & Plan (1) Elevated troponin I level: Plan: Patient has had 1 month of intermittent blood per rectum, and 2 days of increasing melena/black bowel movements. 1 month ago GI follow-up from prior GI bleed had Carafate discontinued and switched to daily PPI. Patient is pale and experiencing shortness of breath with exertion. No chest pain, no epigastric pain. Symptomatic chronic anemia with melena Hemoglobin 7.8, -- down from 8.4 yesterday - 1 unit PRBCs given 03/12 - Goal hgb >8 Eliquis held. PPI IV twice daily ordered GI consulted: - EGD today -- showed bleeding in the cardia. Cauterized and bleeding stopped. - Re-added sucralfate - Continue to monitor overnight - Repeat hgb in AM - Recommend follow up outpatient -- consider capsule endoscopy Acute exacerbation of HFrEF SOB with exertion Pulmonary vascular congestion is noted on x-ray without overt edema & trace effusion Given a dose of lasix with improvement in symptoms. - Neg 2L fluid balance. - exacerbation possibly in setting of anemia and CMP Mild troponin elevation CAD Troponin is slightly elevated - steady in 20s with multiple readings. - Limited echo with slight improvement in EF 30-35%. with wall motion abnormality. Apical clot resolved. -Has h/o prior failed stent, subsequently had double bypass and follows with [facility] - Has an upcoming appointment for placement of a drug eluding stent Metoprolol continued, do not hold for risk of beta-benson withdrawal Will continue to hold aspirin and Eliquis pending conversation with patient's typist - Will need to get information on his need of chronic Eliquis need indication. Left ventricle thrombus Holding Eliquis, see above Peripheral artery disease. Aspirin held for acute bleeding, see above DM2 Jardiance held Conservative sliding scale as needed. Goal BSG [id number] DVT prophylaxis: Anticoagulation held for acute bleed. SCD ordered Diet: Heart healthy CODE STATUS: DNR/DNI. Disposition: PCU for GI bleed with troponin trend (2) DVT (deep venous thrombosis): (3) Gastric AVM: (4) Acute GI bleeding: (5) Hypothyroidism: (6) CAD (coronary artery disease): (7) Elevated troponin: Admission and Anticipated Discharge Date Admission Date: March 10, 2023 Supervising Physician Co-Signing Physician Notes Medical Student Supervision Note: I was personally present during medical student patient encounter and independently interviewed and examined the patient and verified the britton history and physical, reviewed labs and image studies, discussed the case with Monie Olivas and agree with the findings and care plan. Symptomatic anemia with melena - h/h drop this am. 1 PRBC transfused this am. EGD with bleeding site- cauterized. Sucralfate re-added. For capsule endoscopy as outpatient. Acute HFrEF - s/p one dose lasix with adequate diuresis. CAD - is scheduled to have stent placement. Holding aspirin. Left ventricle clot - eliquis on hold. Echo with resolved clot and EF slightly better. Get info from his cardiology in am. Subjective 03/12: Patient is feeling well this morning, with no pain. He was up and walking to the bathroom without shortness of breath. He had one bowel movement last night which was again dark and tarry. Physical Exam Physical Exam: General: A&Ox3. NAD. Cooperative.Pallor is present HEENT: Atraumatic, normocephalic. Vision/hearing grossly intact Pulm: Clear bilaterally. No increased work of breathing at rest. No respiratory distress. Cardiac: RRR, no rubs murmurs or gallops. Radial pulses intact and symmetrical. Abdominal: Nontender, nondistended, soft. Normoactive bowel sounds present. Extremities: Warm, dry.Pale.No edema.Moves all extremities equally Results & Data Results & Data Vital Signs (Past 12 Hours) Vital Signs Temp Pulse Pulse Resp BP Pulse Ox O2 Del Method 03/12/23 03:00 36.6 C 77 18 115/64 100 Room Air 03/11/23 22:30 83 03/11/23 23:00 36.4 C L 78 16 109/65 100 Room Air
--- NOTE | 2023-03-12 08:35 | Anesthesiology Consultation ---
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 Paramjit Yusuf Jr, MD Height/Weight Height: 5 ft 11 in Weight: 78 kg Allergies Allergy/AdvReac Type Severity Reaction Status Date / Time allopurinol [From Zyloprim] Allergy Vomiting Verified 03/10/23 14:37 clopidogrel [From Plavix] Allergy Unknown Verified 03/10/23 14:37 atorvastatin AdvReac Unknown Verified 03/10/23 14:37 rosuvastatin [From Crestor] AdvReac Unknown Verified 03/10/23 14:37 simvastatin [From Zocor] AdvReac Unknown Verified 03/10/23 14:37 Medications Home Medications Medication Instructions Recorded Confirmed Last Taken apixaban 5 mg tablet (Eliquis) 5 mg BID 12/09/22 03/10/23 03/10/23 aspirin 81 mg tablet,delayed 81 mg PO DAILY 12/09/22 03/10/23 03/10/23 release (Enteric Coated Aspirin) cholecalciferol (vitamin D3) 250 500 mcg PO DAILY 12/09/22 03/10/23 03/10/23 mcg (10,000 unit) tablet cyanocobalamin (vitamin B-12) 1,000 mcg PO DAILY 12/09/22 03/10/23 03/10/23 1,000 mcg capsule empagliflozin 10 mg tablet 10 mg PO DAILY 12/09/22 03/10/23 03/10/23 (Jardiance) ferrous sulfate 325 mg (65 mg 325 mg PO Q OTHER DAY 12/09/22 03/10/23 03/10/23 iron) capsule,extended release fluticasone propionate 50 2 spray intranasal DAILY 12/09/22 03/10/23 03/10/23 mcg/actuation nasal spray,suspension levothyroxine 50 mcg tablet 50 mcg PO DAILY 12/09/22 03/10/23 03/10/23 (Synthroid) magnesium oxide 400 mg PO BID 12/09/22 03/10/23 03/10/23 metoprolol succinate 25 mg 25 mg PO DAILY 12/09/22 03/10/23 03/10/23 tablet,extended release 24 hr atorvastatin 40 mg tablet 10 mg PO HS 01/24/23 03/10/23 03/10/23 pantoprazole 40 mg tablet,delayed 40 mg PO BID #60 tabs 03/08/23 03/10/23 03/10/23 release (Protonix) febuxostat 40 mg tablet 40 mg PO DAILY 03/10/23 03/10/23 03/10/23 spironolactone 25 mg tablet 25 mg PO DAILY 03/10/23 03/10/23 03/10/23 Active Medications Generic Name Dose Route Start Last Admin Trade Name Liat PRN Reason Stop Dose Admin Pantoprazole Sodium 40 mg/ 10 mls @ 5 mls/min 03/10/23 21:00 03/11/23 21:34 Syringe IV 04/09/23 20:59 5 mls/min BID ROSEMARIE Administration Insulin Aspart 0 units 03/11/23 21:00 03/11/23 22:00 Insulin Aspart Per Unit Charge SC 04/10/23 20:59 Not Given ACHS ROSEMARIE Levothyroxine Sodium 50 mcg 03/11/23 06:30 03/12/23 05:57 Levothyroxine Sodium 50 Mcg Tablet PO 04/10/23 06:29 50 mcg DAILYBB ROSEMARIE Administration Metoprolol Succinate 25 mg 03/11/23 09:00 03/11/23 09:50 Metoprolol Succ 25mg Ext Rel Tab PO 04/10/23 08:59 25 mg DAILY ROSEMARIE Administration Past Medical History Medical History (Updated 03/12/23 @ 08:37 by Shamir Yeager MD) CAD (coronary artery disease) Encounter for pre-operative examination Gout HFrEF (heart failure with reduced ejection fraction) Hypothyroidism LV (left ventricular) mural thrombus PAD (peripheral artery disease) Past Surgical History Surgical History AICD (automatic cardioverter/defibrillator) present H/O esophagogastroduodenoscopy H/O hemorrhoidectomy History of rectal sphincterotomy Hx of cholecystectomy S/P CABG (coronary artery bypass graft) Social History Smoking Status: Former smoker Hx Alcohol Use: No Hx Substance Use: No substance use type: does not use Physical Exam Vital Signs Last Vital Signs Temp 36.5 C 03/12/23 07:59 Pulse 51 L 03/12/23 07:59 Resp 19 03/12/23 07:59 BP 117/75 03/12/23 07:59 Pulse Ox 95 03/12/23 07:59 O2 Del Method Room Air 03/12/23 07:59 Testing Laboratory Results 03/12/23 05:27 03/12/23 05:27 PT 13.0 Seconds (9.0-12.0) H 03/10/23 14:28 INR 1.2 (0.9-1.1) H 03/10/23 14:28 APTT 25.9 Seconds (21.0-31.0) 03/10/23 14:28 Urine Color Yellow 03/10/23 Unknown Urine Appearance Clear (Clear) 03/10/23 Unknown Urine pH 6.5 (4.5-7.5) 03/10/23 Unknown Ur Specific [place] 1.021 (1.000-1.030) 03/10/23 Unknown Urine Protein Negative (Negative) 03/10/23 Unknown Urine Glucose (UA) 3+ (Negative) H 03/10/23 Unknown Urine Ketones Negative (Negative) 03/10/23 Unknown Urine Nitrite Negative (Negative) 03/10/23 Unknown Ur Leukocyte Esterase Negative (Negative) 03/10/23 Unknown Urine WBC (Auto) 0 /hpf (0-5) 03/10/23 Unknown Urine RBC (Auto) >30 /hpf (0-4) H 03/10/23 Unknown U Hyaline Cast (Auto) 0 /lpf (0-5) 03/10/23 Unknown U Epithel Cells (Auto) 0-5 /lpf (0-5) 03/10/23 Unknown Urine Bacteria (Auto) Negative (Negative) 03/10/23 Unknown Blood Type B Positive 03/10/23 14:50 Antibody Screen NEGATIVE 03/10/23 14:50 03/12/23 07:51 POC Glucose 157 H Electrocardiogram Date: 03/10/23 Test Reason : Blood Pressure : / mmHG Vent. 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 Lateral leads Abnormal ECG When compared with ECG of 10-MAR-2023 14:19, Premature ventricular complexes are now Present Premature atrial complexes are now Present Confirmed by Jeoy Wolfe ([id number]) on 03/11/2023 8:37:51 AM Chest X-Ray Date: 03/10/23 XR chest 1V portable CLINICAL HISTORY: Dyspnea. COMPARISON STUDY: Chest radiograph December 16, 2022. FINDINGS: There are median sternotomy wires. Suspected defibrillator device is incidentally noted. Cardiomegaly is unchanged. There is a trace right pleural effusion. There is no pneumothorax. There is no consolidation to suggest pneumonia. Linear right basilar densities favor atelectasis or scarring. There is pulmonary vascular congestion without overt pulmonary edema. IMPRESSION: Cardiomegaly. Pulmonary vascular congestion with a trace right pleural effusion. Echocardiogram Date: 03/11/23 EF: 30-35% LV Function: dysfunctional RWMA: + akinetic and + hypokinetic Other Findings: + LVH (mild)
[2023-03-12] MEDS: PANTOprazole 40 MG in SYRINGE 0 ML IV SCH ×2 (08:36→21:06)
[2023-03-12] MEDS: INSULIN ASPART PER UNIT CHARGE SC SCH ×4 (08:38→21:11)
[2023-03-12] MEDS: METOPROLOL SUCC 25MG EXT REL TAB PO SCH (08:39)
--- NOTE | 2023-03-12 09:02 | Gastroenterology Progress Note ---
Supervising physician's note Case discussed with Keke Mcadams B[employer] LAB[employer] chart reviewed and EGD performed. EGD did show active bleeding that was cauterized He can go home if stable. Would restart carafate. Would still consider capsule endoscopy. Discussed with Dr. Campbell about finding out about need for continued Xarelto I have spent 15 minutes of time on this case outside of the EGD Alfred Yusuf Jr, MD, FACG Date of Service March 12, 2023 Assessment & Plan (1) Anemia: Plan: Anemia: Patient with chronic anemia with recurrent melena. Hemoglobin 7.8/hematocrit 24.9 this morning. Primary care team has ordered 1 unit PRBC. Plan is to obtain GD today. If negative I would discharge when ready and consider capsule endoscopy Case reviewed with Dr. Yusuf. Please refer to supervising physician addendum for further recommendations. I have spent 15 minutes of discrete time performing the activities of this visit which include but are not limited to review of the medical record, obtaining a history, physical exam, and entering information in the electronic record. Admission and Anticipated Discharge Date Admission Date: March 10, 2023 Subjective Is a pleasant 72-year-old male resting comfortably in bed this morning. He is n.p.o. He has no voiced GI complaints this morning denies nausea, vomiting, abdominal pain. Review of Systems Review of Systems: All systems reviewed & are unremarkable except as noted in Subjective Physical Exam Gastrointestinal (Abdomen): normal bowel sounds, soft, nontender, no hepatosplenomegaly Results & Data Vital Signs (Past 12 Hours) Vital Signs Temp Pulse Pulse Resp BP Pulse Ox O2 Del Method 03/12/23 07:59 36.5 C 51 L 19 117/75 95 Room Air 03/12/23 03:00 36.6 C 77 18 115/64 100 Room Air 03/11/23 22:30 83 03/11/23 23:00 36.4 C L 78 16 109/65 100 Room Air Laboratory Results Laboratory Results - last 24 hr 03/11/23 03/11/23 03/11/23 11:47 12:03 17:26 WBC RBC Hgb Hct MCV MCH MCHC RDW Std Deviation RDW Coeff of Gena Plt Count MPV Immature Gran % (Auto) Neut % (Auto) Lymph % (Auto) [place] % (Auto) Eos % (Auto) Baso % (Auto) Neut # (Auto) Lymph # (Auto) [place] # (Auto) Eos # (Auto) Baso # (Auto) Immature Gran # (Auto) Polychromasia Ovalocytes Sodium Potassium Chloride Carbon Dioxide Anion Gap BUN Creatinine Est Cr Clr Drug Dosing Est GFR ( Amer) Est GFR (Non-Af Amer) BUN/Creatinine Ratio Glucose POC Glucose 116 H 94 Calcium Troponin I High Sens 23.9 H 03/11/23 03/12/23 03/12/23 20:28 05:27 05:27 WBC 6.14 RBC 2.94 L Hgb 7.8 L Hct 24.9 L MCV 84.7 MCH 26.5 MCHC 31.3 L RDW Std Deviation 47.8 H RDW Coeff of Gena 15.9 H Plt Count 204 MPV 12.4 Immature Gran % (Auto) 0.2 Neut % (Auto) 63.3 Lymph % (Auto) 17.8 [place] % (Auto) 15.6 Eos % (Auto) 2.1 Baso % (Auto) 1.0 Neut # (Auto) 3.89 Lymph # (Auto) 1.09 L [place] # (Auto) 0.96 H Eos # (Auto) 0.13 Baso # (Auto) 0.06 Immature Gran # (Auto) 0.01 Polychromasia 2+ Ovalocytes 1+ Sodium 137 Potassium 4.2 Chloride 106 Carbon Dioxide 24 Anion Gap 7 BUN 43 H Creatinine 1.34 Est Cr Clr Drug Dosing 52.3 Est GFR ( Amer) 60.5 Est GFR (Non-Af Amer) 52.2 BUN/Creatinine Ratio 32.1 H Glucose 113 H POC Glucose 141 H Calcium 8.8 Troponin I High Sens 03/12/23 07:51 WBC RBC Hgb Hct MCV MCH MCHC RDW Std Deviation RDW Coeff of Gena Plt Count MPV Immature Gran % (Auto) Neut % (Auto) Lymph % (Auto) [place] % (Auto) Eos % (Auto) Baso % (Auto) Neut # (Auto) Lymph # (Auto) [place] # (Auto) Eos # (Auto) Baso # (Auto) Immature Gran # (Auto) Polychromasia Ovalocytes Sodium Potassium Chloride Carbon Dioxide Anion Gap BUN Creatinine Est Cr Clr Drug Dosing Est GFR ( Amer) Est GFR (Non-Af Amer) BUN/Creatinine Ratio Glucose POC Glucose 157 H Calcium Troponin I High Sens (1) Anemia Anemia type: unspecified type Qualified Code(s): D64.9 - Anemia, unspecified
[2023-03-12] MEDS ORDERED: SODIUM CHLORIDE 0.9% 250 ML IV PRN (09:11)
[2023-03-12] MEDS ORDERED: PROPOFOL IV EMULSION 10 MG/ML 20 ML VIAL IV ONE (12:37)
[2023-03-12] MEDS ORDERED: LIDOCAINE 2% 2 ML VIAL/AMP(20MG/ML) INFIL ONE (12:37)
--- NOTE | 2023-03-12 13:04 | History & Physical Report ---
Date of Service March 12, 2023 Assessment & Plan (1) Encounter for pre-operative examination: Plan: Pleasant man with recurrent anemia. EGD planned. Procedure and risks discussed and he agrees. Admission and Anticipated Discharge Date Admission Date: March 10, 2023 History of Present Illness Chief Complaint: bleeding Primary Care Provider: Memo Lora MD 72 year old man with recurrent issues with anemia. He is here for EGD Allergies Allergy/AdvReac Type Severity Reaction Status Date / Time allopurinol [From Zyloprim] Allergy Vomiting Verified 03/10/23 14:37 clopidogrel [From Plavix] Allergy Unknown Verified 03/10/23 14:37 atorvastatin AdvReac Unknown Verified 03/10/23 14:37 rosuvastatin [From Crestor] AdvReac Unknown Verified 03/10/23 14:37 simvastatin [From Zocor] AdvReac Unknown Verified 03/10/23 14:37 Home Medications Medication Instructions Recorded Confirmed Type apixaban 5 mg tablet (Eliquis) 5 mg BID 12/09/22 03/10/23 History aspirin 81 mg tablet,delayed 81 mg PO DAILY 12/09/22 03/10/23 History release (Enteric Coated Aspirin) cholecalciferol (vitamin D3) 250 500 mcg PO DAILY 12/09/22 03/10/23 History mcg (10,000 unit) tablet cyanocobalamin (vitamin B-12) 1,000 mcg PO DAILY 12/09/22 03/10/23 History 1,000 mcg capsule empagliflozin 10 mg tablet 10 mg PO DAILY 12/09/22 03/10/23 History (Jardiance) ferrous sulfate 325 mg (65 mg 325 mg PO Q OTHER DAY 12/09/22 03/10/23 History iron) capsule,extended release fluticasone propionate 50 2 spray intranasal DAILY 12/09/22 03/10/23 History mcg/actuation nasal spray,suspension levothyroxine 50 mcg tablet 50 mcg PO DAILY 12/09/22 03/10/23 History (Synthroid) magnesium oxide 400 mg PO BID 12/09/22 03/10/23 History metoprolol succinate 25 mg 25 mg PO DAILY 12/09/22 03/10/23 History tablet,extended release 24 hr atorvastatin 40 mg tablet 10 mg PO HS 01/24/23 03/10/23 History pantoprazole 40 mg tablet,delayed 40 mg PO BID #60 tabs 03/08/23 03/10/23 Rx release (Protonix) febuxostat 40 mg tablet 40 mg PO DAILY 03/10/23 03/10/23 History spironolactone 25 mg tablet 25 mg PO DAILY 03/10/23 03/10/23 History Past Med/Surg History Medical History CAD (coronary artery disease) Encounter for pre-operative examination Gout HFrEF (heart failure with reduced ejection fraction) Hypothyroidism LV (left ventricular) mural thrombus PAD (peripheral artery disease) Surgical History AICD (automatic cardioverter/defibrillator) present H/O esophagogastroduodenoscopy H/O hemorrhoidectomy History of rectal sphincterotomy Hx of cholecystectomy S/P CABG (coronary artery bypass graft) Social History Smoking Status: Former smoker Second Hand Exposure: No; Hx Alcohol Use: No Hx Substance Use: No Preferred Language: Yi Communication Ability: Effective Wheat Cleaner Required: No Beliefs That Will Affect Care: None Current Living Situation: Alone Feels Safe at Home: Yes Safety Concerns: Feels Safe At This Time Assistive Devices: Cane Review of Systems All systems reviewed & are unremarkable except as noted in HPI & below Physical Exam Constitutional: WD/WN, vitals as above Respiratory: normal respiratory effort, lungs clear to auscultation Cardiovascular: RRR, no murmur, no edema Gastrointestinal (Abdomen): normal bowel sounds, soft, nontender, no hepatosplenomegaly ASA Classification ASA ASA3 Results & Data Vital Signs (Past 12 Hours) Vital Signs Temp Pulse Pulse Resp BP BP BP 03/12/23 12:27 36.3 C L 77 16 105/53 L 03/12/23 11:30 36.6 C 75 16 107/60 03/12/23 11:10 36.8 C 79 20 98/54 L 03/12/23 10:33 36.4 C L 79 16 108/57 L 03/12/23 10:18 36.6 C 79 16 116/65 03/12/23 10:17 36.4 C L 79 18 110/69 03/12/23 10:02 36.5 C 78 18 110/69 03/12/23 08:34 81 03/12/23 07:59 36.5 C 51 L 19 117/75 03/12/23 03:00 36.6 C 77 18 115/64 Pulse Ox O2 Del Method 03/12/23 12:27 100 Room Air 03/12/23 11:30 100 03/12/23 11:10 99 Room Air 03/12/23 10:33 100 03/12/23 10:18 100 03/12/23 10:17 100 03/12/23 10:02 99 03/12/23 08:34 03/12/23 07:59 95 Room Air 03/12/23 03:00 100 Room Air
[2023-03-12] MEDS ORDERED: PHENYLEPHRINE 100MCG/ML 5ML SYR ONE (13:26)
--- NOTE | 2023-03-12 13:39 | GI REPORT ---
Addendum Number: 1 Addendum Date: 03/12/2023 1:42:06 PM Since bleeding in cardia from tiny spot in normal gastric mucosa this is most consistent with a Dieulafoy's lesion. I am not completely confident this is his entire problem. Alfred Yusuf MD 03/12/2023 1:42:52 PM Patient Name: Leroy Donahue Procedure Date: 03/12/2023 12:48 PM Date of : 1950 Admit Type: Inpatient Age: 72 Gender: Male Attending MD: Alfred Yusuf MD, Procedure: Upper GI endoscopy Providers: Alfred Yusuf MD Referring MD: Diana Campbell Indications: Iron deficiency anemia Medicines: Propofol per Anesthesia Complications: No immediate complications. Estimated Blood Loss: Estimated blood loss: none. Estimated blood loss was minimal. Procedure: Pre-Anesthesia Assessment: - Prior to the procedure, a History and Physical was performed, and patient medications and allergies were reviewed. The patient's tolerance of previous anesthesia was also reviewed. The risks and benefits of the procedure and the sedation options and risks were discussed with the patient. All questions were answered, and informed consent was obtained. Prior Anticoagulants: The patient has taken no anticoagulant or antiplatelet agents. ASA Grade Assessment: III - A patient with severe systemic disease. After reviewing the risks and benefits, the patient was deemed in satisfactory condition to undergo the procedure. After obtaining informed consent, the endoscope was passed under direct vision. Throughout the procedure, the patient's blood pressure, pulse, and oxygen saturations were monitored continuously. The Endoscope was introduced through the mouth, and advanced to the second part of duodenum. The upper GI endoscopy was accomplished without difficulty. The patient tolerated the procedure well. Findings: A previous surgical anastomosis was found at 30 cm from the incisors. Clip present from prior application The exam of the esophagus was otherwise normal. Red blood was found in the cardia. Bicap cautery applied as active bleeding was present. Bleeding stopped. Multiple medium sessile polyps were found in the gastric fundus and in the gastric body. The exam of the stomach was otherwise normal. The examined duodenum was normal. Impression: - A previous surgical anastomosis was found. - Red blood in the cardia. - Multiple gastric polyps. - Normal examined duodenum. - No specimens collected. Recommendation: - Use sucralfate tablets 1 gram PO QID [duration]. Alfred Yusuf MD 03/12/2023 1:39:29 PM Note Initiated On: 03/12/2023 12:48 PM Number of Addenda: 1 I attest to the content of the Intraoperative Record and orders documented therein, exceptions below {[id number]}
--- NOTE | 2023-03-12 14:34 | Anesthesiology Progress Note ---
Date of Service March 12, 2023 Anesthesia Post Procedure Vital Signs Vital Signs: Temp Pulse Pulse Resp BP BP BP 03/12/23 14:15 36.4 C L 77 16 102/55 L 03/12/23 14:00 72 18 119/65 03/12/23 13:45 71 18 111/64 03/12/23 13:30 36 C L 71 18 102/57 L 03/12/23 13:35 77 03/12/23 12:58 36.1 C L 77 16 120/62 03/12/23 12:27 36.3 C L 77 16 105/53 L 03/12/23 11:30 36.6 C 75 16 107/60 03/12/23 11:10 36.8 C 79 20 98/54 L 03/12/23 10:33 36.4 C L 79 16 108/57 L 03/12/23 10:18 36.6 C 79 16 116/65 03/12/23 10:17 36.4 C L 79 18 110/69 03/12/23 10:02 36.5 C 78 18 110/69 03/12/23 08:34 81 03/12/23 07:59 36.5 C 51 L 19 117/75 03/12/23 03:00 36.6 C 77 18 115/64 03/11/23 22:30 83 03/11/23 23:00 36.4 C L 78 16 109/65 03/11/23 19:00 36.4 C L 84 21 121/71 03/11/23 15:36 36.4 C L 73 16 120/69 Pulse Ox O2 Del Method 03/12/23 14:15 100 Room Air 03/12/23 14:00 99 Room Air 03/12/23 13:45 99 Room Air 03/12/23 13:30 98 Room Air 03/12/23 13:35 03/12/23 12:58 100 03/12/23 12:27 100 Room Air 03/12/23 11:30 100 03/12/23 11:10 99 Room Air 03/12/23 10:33 100 03/12/23 10:18 100 03/12/23 10:17 100 03/12/23 10:02 99 03/12/23 08:34 03/12/23 07:59 95 Room Air 03/12/23 03:00 100 Room Air 03/11/23 22:30 03/11/23 23:00 100 Room Air 03/11/23 19:00 100 Room Air 03/11/23 15:36 100 Room Air Transfer of Care Handoff Completed per policy Notes Mental Status: alert / awake / arousable and participated in evaluation Patient Amnestic to Procedure: Yes Nausea / Vomiting: adequately controlled Pain: adequately controlled Airway Patency, RR, SpO2: stable & adequate BP & HR: stable & adequate Hydration State: stable & adequate Anesthetic Complications: no major complications apparent
[2023-03-12] MEDS: SUCRALFATE 1 GM/10 ML UDC PO SCH (21:11)
[2023-03-13] MEDS: LEVOTHYROXINE SODIUM 50 MCG TABLET PO SCH (05:55)
[2023-03-13 06:17] LABS: Basophils # (auto) 0.05 K/uL (0-0.2); Basophils % (auto) 0.6 %; Eosinophils # (auto) 0.13 K/uL (0-0.50); Eosinophils % (auto) 1.5 %; Hematocrit (blood only) 24.1 % (42.0-52.0); Hemoglobin 7.6 g/dl (14.0-18.0); Immature Granulocytes # (auto) 0.02 K/uL (0.01-0.20); Immature Granulocytes % (auto) 0.2 %; Lymphocytes # (auto) 1.05 K/uL (1.2-3.4); Lymphocytes % (auto) 12.1 %; Mean Corpuscular Hemoglobin 26.4 pg (25.0-34.0); Mean Corpuscular Hgb Conc 31.5 g/dL (32.0-36.0); Mean Corpuscular Volume 83.7 fL (80.0-100.0); Mean Platelet Volume 12.9 fL (9.4-12.4); Monocytes # (auto) 0.96 K/uL (0.11-0.59); Neutrophils % (auto) 74.6 %; Platelet Count 195 K/uL (130-400); RDW Coefficient of Variation 15.6 % (11.5-14.5); Red Blood Count 2.88 M/uL (4.70-6.10); White Blood Count 8.71 K/ul (4.8-10.8)
[2023-03-13 06:37] LABS: BUN Creatinine Ratio 40.2 (10-20); Calcium 8.6 mg/dl (8.6-10.3); Creatinine Clr Calc Pharmacy 55.2 ml/min; Est GFR (African American) 64.5 ml/min; Est GFR (Non-African American) 55.7 ml/min; Potassium 4.2 mmol/L (3.5-5.1)
[2023-03-13 06:45] LABS: Ovalocytes 1+; Polychromasia 1+
[2023-03-13] MEDS ORDERED: SODIUM CHLORIDE 0.9% 250 ML IV PRN (07:13)
[2023-03-13] MEDS: METOPROLOL SUCC 25MG EXT REL TAB PO SCH (08:29)
[2023-03-13] MEDS: SUCRALFATE 1 GM/10 ML UDC PO SCH ×4 (08:29→20:40)
[2023-03-13] MEDS: INSULIN ASPART PER UNIT CHARGE SC SCH ×4 (08:29→23:05)
[2023-03-13] MEDS: PANTOprazole 40 MG in SYRINGE 0 ML IV SCH ×2 (08:29→20:39)
--- NOTE | 2023-03-13 08:45 | Gastroenterology Progress Note ---
Supervising physician's note Case discussed with Keke Mcadams NP, chart reviewed, met with patient He feels well. Had "green" stool last night and thomas stool. H/H slowly drifting. Seems to be doing well. Will follow while in hospital I spent a total of 15 minutes on this case with discussion, chart review and record entry Alfred Yusuf Jr, MD, [facility] [place] Date of Service March 13, 2023 Assessment & Plan (1) Anemia: Plan: Anemia: Patient with chronic anemia with recurrent melena. Hemoglobin 7.6, hematocrit 25.1 this morning. Primary care team has ordered 1 unit PRBC. 03/12/2023 demonstrated active bleeding noted in the cardia with cautery used and bleeding stopped. Continue supportive care measures and will continue to monitor. Case reviewed with Dr. Yusuf. Please refer to supervising physician addendum for further recommendations. I have spent 15 minutes of discrete time performing the activities of this visit which include but are not limited to review of the medical record, obtaining a history, physical exam, and entering information in the electronic record. Admission and Anticipated Discharge Date Admission Date: March 10, 2023 Subjective Patient awake alert and oriented sitting at bedside position of comfort. Reports that he had 1 black stool last night and 1 thomas colored stool this morning without blood clots noted. Tolerating regular diet. Denies abdominal pain, nausea, vomiting, chest pain, shortness of breath, dizziness/lightheadedness. Review of Systems Review of Systems: All systems reviewed & are unremarkable except as noted in Subjective Physical Exam Gastrointestinal (Abdomen): normal bowel sounds, soft, nontender, no hepatosplenomegaly Results & Data Vital Signs (Past 12 Hours) Vital Signs Temp Pulse Pulse Resp BP Pulse Ox O2 Del Method 03/13/23 07:22 36.7 C 84 20 123/66 100 Room Air 03/13/23 02:51 36.6 C 83 20 108/87 97 Room Air 03/12/23 23:30 79 03/12/23 22:44 36.8 C 80 16 110/68 100 Room Air Laboratory Results Laboratory Results - last 24 hr 03/10/23 03/12/23 03/12/23 14:50 09:16 09:16 WBC RBC Hgb Hct MCV MCH MCHC RDW Std Deviation RDW Coeff of Gena Plt Count MPV Immature Gran % (Auto) Neut % (Auto) Lymph % (Auto) [place] % (Auto) Eos % (Auto) Baso % (Auto) Neut # (Auto) Lymph # (Auto) [place] # (Auto) Eos # (Auto) Baso # (Auto) Immature Gran # (Auto) Polychromasia Ovalocytes Sodium Potassium Chloride Carbon Dioxide Anion Gap BUN Creatinine Est Cr Clr Drug Dosing Est GFR ( Amer) Est GFR (Non-Af Amer) BUN/Creatinine Ratio Glucose POC Glucose Calcium Blood Type B Positive Cancelled B Positive Rho(D) Type Cancelled Antibody Screen NEGATIVE Cancelled NEGATIVE Crossmatch See Detail See Detail 03/12/23 03/12/23 03/12/23 11:19 16:54 19:56 WBC RBC Hgb Hct MCV MCH MCHC RDW Std Deviation RDW Coeff of Gena Plt Count MPV Immature Gran % (Auto) Neut % (Auto) Lymph % (Auto) [place] % (Auto) Eos % (Auto) Baso % (Auto) Neut # (Auto) Lymph # (Auto) [place] # (Auto) Eos # (Auto) Baso # (Auto) Immature Gran # (Auto) Polychromasia Ovalocytes Sodium Potassium Chloride Carbon Dioxide Anion Gap BUN Creatinine Est Cr Clr Drug Dosing Est GFR ( Amer) Est GFR (Non-Af Amer) BUN/Creatinine Ratio Glucose POC Glucose 117 H 156 H 113 H Calcium Blood Type Rho(D) Type Antibody Screen Crossmatch 03/13/23 03/13/23 03/13/23 05:39 05:39 07:39 WBC 8.71 RBC 2.88 L Hgb 7.6 L Hct 24.1 L MCV 83.7 MCH 26.4 MCHC 31.5 L RDW Std Deviation 47.0 H RDW Coeff of Gena 15.6 H Plt Count 195 MPV 12.9 H Immature Gran % (Auto) 0.2 Neut % (Auto) 74.6 Lymph % (Auto) 12.1 [place] % (Auto) 11.0 Eos % (Auto) 1.5 Baso % (Auto) 0.6 Neut # (Auto) 6.50 Lymph # (Auto) 1.05 L [place] # (Auto) 0.96 H Eos # (Auto) 0.13 Baso # (Auto) 0.05 Immature Gran # (Auto) 0.02 Polychromasia 1+ Ovalocytes 1+ Sodium 136 Potassium 4.2 Chloride 108 H Carbon Dioxide 22 Anion Gap 6 BUN 51 H Creatinine 1.27 Est Cr Clr Drug Dosing 55.2 Est GFR ( Amer) 64.5 Est GFR (Non-Af Amer) 55.7 BUN/Creatinine Ratio 40.2 H Glucose 116 H POC Glucose 126 H Calcium 8.6 Blood Type Rho(D) Type Antibody Screen Crossmatch Diagnostic Findings 03/12/2023: EGD notes are reviewed performed due to history of iron deficiency anemia which demonstrated a previous surgical anastomosis found 30 cm from the incisors with clip present from prior application. The rest of the esophagus was otherwise normal. Red blood was found in the cardia. BiCap cautery applied as active bleeding was present. Bleeding stopped. Multiple medium sessile polyps found the gastric fundus and gastric body. Stomach exam otherwise normal. Examined duodenum was normal. There were no specimens collected. Advised the patient take Carafate tablets 1 g p.o. 4 times daily. (1) Anemia Anemia type: unspecified type Qualified Code(s): D64.9 - Anemia, unspecified
--- NOTE | 2023-03-13 09:31 | Hospitalist Progress Note ---
Date of Service March 13, 2023 Assessment & Plan (1) Elevated troponin I level: Plan: Patient has had 1 month of intermittent blood per rectum, and 2 days of increasing melena/black bowel movements. 1 month ago GI follow-up from prior GI bleed had Carafate discontinued and switched to daily PPI. Patient is pale and experiencing shortness of breath with exertion. No chest pain, no epigastric pain. GI bleed Acute blood loss anemia GI consulted: - EGD 03/13 -- showed bleeding in the cardia. Cauterized and bleeding stopped. - Recommend capsule endoscopy as outpatient Hemoglobin 7.6 03/13am - Transfuse 1 prbc (2 units total this admission) - repeat post 1 unit PRBCs 8.8 - Repeat H&H in AM - Goal hgb >8 Holding Eliquis PPI IV twice daily Acute exacerbation of HFrEF Given a dose of lasix in ED with improvement in symptoms. - With positive fluid balance - will give one dose lasix again - 20mgs (03/13) - exacerbation possibly in setting of anemia and CMP Mild troponin elevation CAD Atrial fibrillation, paroxysmal Troponin is slightly elevated - steady in 20s with multiple readings. - Limited echo with slight improvement in EF 30-35%. with wall motion abnorm ality. Apical clot resolved. Will continue to hold aspirin and Eliquis. -Has h/o prior failed stent, subsequently had double bypass and follows with [place] [facility] - Has an upcoming appointment for placement of a drug eluding stent Continue Metoprolol - Will need to hold Eliquis on discharge - discussed plan with patient's outpatient edge brusher in [place] - Is scheduled for watchman device. Cardiomyopathy EF - 30-35% Left ventricle thrombus Echo from November showed small apical thrombus, - echo 03/11 thrombus no longer clearly visualized, more trabeculated. Peripheral artery disease. Aspirin held for acute bleeding, see above DM2 Jardiance held Admitting BSG 111, adequately controlled and patient is n.p.o. Conservative sliding scale as needed. Goal BSG 748080 DVT prophylaxis: SCD ordered Diet: Heart healthy CODE STATUS: DNR/DNI. Disposition: PCU (2) DVT (deep venous thrombosis): (3) Gastric AVM: (4) Acute GI bleeding: (5) Hypothyroidism: (6) CAD (coronary artery disease): (7) Elevated troponin: Admission and Anticipated Discharge Date Admission Date: March 10, 2023 Supervising Physician Co-Signing Physician Notes Medical Student Supervision Note: I was personally present during medical student patient encounter and independently interviewed and examined the patient and verified the britton history and physical, reviewed labs and image studies, discussed the case with Monie Olivas and agree with the findings and care plan. GI bleed with acute blood loss anemia - EGD with bleeding site- cauterized 03/12. Sucralfate re-added. For capsule endoscopy as outpatient. - h/h drop again. likely from bleed yesterday. 1 PRBC transfused this am. - continue h/h monitoring Acute HFrEF - s/p one dose lasix with adequate diuresis on admission. now with positive fluid balance - will give 20mg lasix 03/13. CAD/PAF/CMP/Mild elevation in troponin - is scheduled to have stent placement. Holding aspirin. continue metoprolol. Holding xarelto Left ventricle clot - eliquis on hold. Echo with resolved clot and EF slightly better since November. Updated outpatient edge brusher Subjective This morning ronit is feeling "about the same" as yesterday. He reports two bowel movements last night, one which was a dark brown and one which was red, but no clots. He has no shortness of breath when up and moving around. He has no dizziness or weakness. Physical Exam Physical Exam: General: A&Ox3. NAD. Cooperative.Pallor is present HEENT: Atraumatic, normocephalic. Vision/hearing grossly intact Pulm: Clear bilaterally. No increased work of breathing at rest. No respiratory distress. Cardiac: RRR, no rubs murmurs or gallops. Radial pulses intact and symmetrical. Abdominal: Nontender, nondistended, soft. Normoactive bowel sounds present. Extremities: Warm, dry.Pale.No edema.Moves all extremities equally Results & Data Results & Data Vital Signs (Past 12 Hours) Vital Signs Temp Pulse Pulse Resp BP Pulse Ox O2 Del Method 03/13/23 07:22 36.7 C 84 20 123/66 100 Room Air 03/13/23 02:51 36.6 C 83 20 108/87 97 Room Air 03/12/23 23:30 79 03/12/23 22:44 36.8 C 80 16 110/68 100 Room Air
[2023-03-13 14:32] LABS: Hematocrit (blood only) 27.8 % (42.0-52.0); Hemoglobin 8.8 g/dl (14.0-18.0)
[2023-03-13] MEDS ORDERED: FUROSEMIDE INJ 20 MG/2 ML VIAL IV ONE (16:10)
[2023-03-14] MEDS: LEVOTHYROXINE SODIUM 50 MCG TABLET PO SCH (06:13)
[2023-03-14 08:04] LABS: Hematocrit (blood only) 26.7 % (42.0-52.0); Hemoglobin 8.5 g/dl (14.0-18.0); Mean Corpuscular Hemoglobin 26.6 pg (25.0-34.0); Mean Corpuscular Hgb Conc 31.8 g/dL (32.0-36.0); Mean Corpuscular Volume 83.7 fL (80.0-100.0); Mean Platelet Volume 12.3 fL (9.4-12.4); Platelet Count 213 K/uL (130-400); RDW Coefficient of Variation 15.5 % (11.5-14.5); Red Blood Count 3.19 M/uL (4.70-6.10); White Blood Count 7.86 K/ul (4.8-10.8)
[2023-03-14 08:13] LABS: Calcium 8.9 mg/dl (8.6-10.3); Creatinine Clr Calc Pharmacy 63.1 ml/min; Est GFR (African American) 75.9 ml/min; Est GFR (Non-African American) 65.5 ml/min; Potassium 3.8 mmol/L (3.5-5.1)
[2023-03-14] MEDS: METOPROLOL SUCC 25MG EXT REL TAB PO SCH (08:23)
[2023-03-14] MEDS: SUCRALFATE 1 GM/10 ML UDC PO SCH ×4 (08:24→20:14)
[2023-03-14] MEDS: INSULIN ASPART PER UNIT CHARGE SC SCH ×4 (08:24→20:08)
[2023-03-14] MEDS: PANTOprazole 40 MG in SYRINGE 0 ML IV SCH (08:24)
--- NOTE | 2023-03-14 08:57 | Gastroenterology Progress Note ---
Supervising physician's note Case discussed with Keke Mcadams NP. Refer to her notes for full details. He is feeling well. One small "thomas" colored stool last night. None today. H/H are stable I think he is stable now. Will continue to follow I spent 10 minutes on this case with both discussion with Keke Mcadams and patient, chart review and record entry Alfred Yusuf Jr, MD, [facility] Date of Service March 14, 2023 Assessment & Plan (1) Anemia: Plan: Anemia: Patient with chronic anemia with recurrent melena. Hemoglobin 8.5, hematocrit 26.7 this morning. Received 1 unit PRBC 03/12/2023. 03/12/2023 demonstrated active bleeding noted in the cardia with cautery used and bleeding stopped. Continue supportive care measures and will continue to monitor. Case reviewed with Dr. Yusuf. Please refer to supervising physician addendum for further recommendations. I have spent 15 minutes of discrete time performing the activities of this visit which include but are not limited to review of the medical record, obtaining a history, physical exam, and entering information in the electronic record. Admission and Anticipated Discharge Date Admission Date: March 10, 2023 Subjective Patient awake alert and oriented this morning sitting in his bedside chair eating his breakfast. Nursing reports that he had very small BM last night thomas in color. No bowel movement this morning. He denies abdominal pain, nausea, vomiting. Tolerating regular diet. Review of Systems Review of Systems: All systems reviewed & are unremarkable except as noted in Subjective Physical Exam Gastrointestinal (Abdomen): normal bowel sounds, soft, nontender, no hepatosplenomegaly Results & Data Vital Signs (Past 12 Hours) Vital Signs Temp Pulse Pulse Resp BP Pulse Ox O2 Del Method 03/14/23 08:11 36.6 C 68 16 136/81 98 03/14/23 03:00 36.5 C 85 20 119/58 L 97 Room Air 03/13/23 23:30 84 03/13/23 22:50 36.4 C L 80 20 120/64 97 Room Air Laboratory Results Laboratory Results - last 24 hr 03/12/23 03/13/23 03/13/23 09:16 11:19 14:04 WBC RBC Hgb 8.8 L Hct 27.8 L MCV MCH MCHC RDW Std Deviation RDW Coeff of Gena Plt Count MPV Sodium Potassium Chloride Carbon Dioxide Anion Gap BUN Creatinine Est Cr Clr Drug Dosing Est GFR ( Amer) Est GFR (Non-Af Amer) POC Glucose 168 H Fasting Glucose Calcium Blood Type B Positive Antibody Screen NEGATIVE Crossmatch See Detail 03/13/23 03/13/23 03/14/23 16:25 20:05 07:29 WBC 7.86 RBC 3.19 L Hgb 8.5 L Hct 26.7 L MCV 83.7 MCH 26.6 MCHC 31.8 L RDW Std Deviation 47.0 H RDW Coeff of Gena 15.5 H Plt Count 213 MPV 12.3 Sodium Potassium Chloride Carbon Dioxide Anion Gap BUN Creatinine Est Cr Clr Drug Dosing Est GFR ( Amer) Est GFR (Non-Af Amer) POC Glucose 121 H 125 H Fasting Glucose Calcium Blood Type Antibody Screen Crossmatch 03/14/23 03/14/23 07:29 07:36 WBC RBC Hgb Hct MCV MCH MCHC RDW Std Deviation RDW Coeff of Gena Plt Count MPV Sodium 137 Potassium 3.8 Chloride 107 Carbon Dioxide 22 Anion Gap 8 BUN 42 H Creatinine 1.11 Est Cr Clr Drug Dosing 63.1 Est GFR ( Amer) 75.9 Est GFR (Non-Af Amer) 65.5 POC Glucose 150 H Fasting Glucose 121 H Calcium 8.9 Blood Type Antibody Screen Crossmatch (1) Anemia Anemia type: unspecified type Qualified Code(s): D64.9 - Anemia, unspecified
--- NOTE | 2023-03-14 09:44 | Hospitalist Progress Note ---
Date of Service March 14, 2023 Assessment & Plan (1) Elevated troponin I level: Plan: Patient has had 1 month of intermittent blood per rectum, and 2 days of increasing melena/black bowel movements. 1 month ago GI follow-up from prior GI bleed had Carafate discontinued and switched to daily PPI. Patient is pale and experiencing shortness of breath with exertion. No chest pain, no epigastric pain. GI bleed Acute blood loss anemia GI consulted: - EGD 03/13 -- showed bleeding in the cardia. Cauterized and bleeding stopped. - Recommend capsule endoscopy as outpatient Hemoglobin 8.5 on 03/14. - s/p 2 units PRBC - repeat post 1 unit PRBCs 8.8 - Repeat H&H in AM - Goal hgb >8 Holding Eliquis PPI IV twice daily Acute exacerbation of HFrEF Given a dose of lasix in ED with improvement in symptoms. - 2 L with lasix dose 20mgs 03/13. - exacerbation possibly in setting of anemia and CMP Mild troponin elevation CAD Atrial fibrillation, paroxysmal Troponin is slightly elevated - steady in 20s with multiple readings. - Limited echo with slight improvement in EF 30-35%. with wall motion abnormality. Apical clot resolved. Will continue to hold aspirin and Eliquis. -Has h/o prior failed stent, subsequently had double bypass and follows with [place] [facility]ology - Has an upcoming appointment for placement of a drug eluding stent Continue Metoprolol - Will need to hold Eliquis on discharge - discussed plan with patient's outpatient qa tester in [place] - Is scheduled for watchman device. Cardiomyopathy EF - 30-35% Left ventricle thrombus Echo from November showed small apical thrombus, - echo 03/11 thrombus no longer clearly visualized, more trabeculated. Knee Pain Patient uses diclofenac gel at home--ordered 03/14 Peripheral artery disease. Aspirin held for acute bleeding, see above DM2 Jardiance held Admitting BSG 111, adequately controlled and patient is n.p.o. Conservative sliding scale as needed. Goal BSG 901022 DVT prophylaxis: SCD ordered Diet: Heart healthy CODE STATUS: DNR/DNI. Disposition: PCU, PT/OT ordered for today (2) DVT (deep venous thrombosis): (3) Gastric AVM: (4) Acute GI bleeding: (5) Hypothyroidism: (6) CAD (coronary artery disease): (7) Elevated troponin: Admission and Anticipated Discharge Date Admission Date: March 10, 2023 Supervising Physician Co-Signing Physician Notes Medical Student Supervision Note: I was personally present during medical student patient encounter and independently interviewed and examined the patient and verified the britton history and physical, reviewed labs and image studies, discussed the case with Monie Olivas and agree with the findings and care plan. GI bleed with acute blood loss anemia - EGD with bleeding site- cauterized 03/12. Sucralfate re-added. For capsule endoscopy as outpatient. - h/h stable. s/p 2 units PRBC so far - continue h/h monitoring Acute HFrEF - s/p one dose lasix with adequate diuresis on admission. Diuresed well with 20mg lasix 03/13. CAD/PAF/CMP/Mild elevation in troponin - is scheduled to have stent placement. Holding aspirin. continue metoprolol. Holding xarelto Left ventricle clot - eliquis on hold. Echo with resolved clot and EF slightly better since November. Updated outpatient qa tester Subjective This morning the patient is feeling well, is sitting in his chair eating breakfast. He reports no pain, dizziness, or shortness of breath. He does say that he feels weak, and needs to rest frequently when walking around. He had one small thomas colored bowel movement last night. Physical Exam Physical Exam: General: A&Ox3. NAD. Cooperative.Pallor is present HEENT: Atraumatic, normocephalic. Vision/hearing grossly intact Pulm: Clear bilaterally. No increased work of breathing at rest. No respiratory distress. Cardiac: RRR, no rubs murmurs or gallops. Radial pulses intact and symmetrical. Abdominal: Nontender, nondistended, soft. Normoactive bowel sounds present. Extremities: Warm, dry.Pale.No edema.Moves all extremities equally Results & Data Results & Data Vital Signs (Past 12 Hours) Vital Signs Temp Pulse Pulse Resp BP Pulse Ox O2 Del Method 03/14/23 08:11 36.6 C 68 16 136/81 98 03/14/23 03:00 36.5 C 85 20 119/58 L 97 Room Air 03/13/23 23:30 84 03/13/23 22:50 36.4 C L 80 20 120/64 97 Room Air
[2023-03-14] MEDS: DICLOFENAC SOD 1% GEL 100 GM TUBE EXT PRN (20:08)
[2023-03-14] MEDS: PANTOprazole 40 MG TAB PO SCH (20:08)
[2023-03-14] MEDS ORDERED: DICLOFENAC SOD 1% GEL 100 GM TUBE EXT SCH (21:00)
[2023-03-15] MEDS ORDERED: ACETAMINOPHEN 325 MG TAB PO PRN (03:44)
[2023-03-15] MEDS: LEVOTHYROXINE SODIUM 50 MCG TABLET PO SCH (04:27)
[2023-03-15 07:02] LABS: BUN Creatinine Ratio 36.6 (10-20); Calcium 8.9 mg/dl (8.6-10.3); Creatinine Clr Calc Pharmacy 62.6 ml/min; Est GFR (African American) 75.1 ml/min; Est GFR (Non-African American) 64.8 ml/min; Potassium 3.7 mmol/L (3.5-5.1)
--- NOTE | 2023-03-15 07:11 | Hospitalist Progress Note ---
Date of Service March 15, 2023 Assessment & Plan (1) Elevated troponin I level: Plan: Leroy is a 72 year old male with history of A Fib, CAD< hypothyroidism, DVT, gout, and gastritis who presented for evaluation of increasing melena over the course of 2 days. Patient has a history of GI bleeding - 1 month ago his Carafate dosing was discontinued and switched to a PPI. Patient presented pale w/ MÉNDEZ. He was admitted for further evaluation and management of acute GI bleeding. GI bleed Acute blood loss anemia GI consulted: - EGD 03/13 -- showed bleeding in the cardia. Cauterized and bleeding stopped. - Recommend capsule endoscopy as outpatient - Will continue to monitor -- possible need for repeat scope Hemoglobin 8 on 03/15 -- down from 8.5 yesterday - Repeat this afternoon -- 8.8 - s/p 2 units PRBC 03/13 - Repeat H&H in AM - Goal hgb >8 Holding Eliquis PPI IV twice daily Acute exacerbation of HFrEF Given a dose of lasix in ED with improvement in symptoms. - 2 L with lasix dose 20mgs 03/13. - Exacerbation possibly in setting of anemia and CMP Mild troponin elevation CAD Atrial fibrillation, paroxysmal Troponin is slightly elevated - steady in 20s with multiple readings. - Limited echo with slight improvement in EF 30-35%. with wall motion abnormality. Apical clot resolved. Will continue to hold aspirin and Eliquis. - Has h/o prior failed stent, subsequently had double bypass and follows with [place] [facility] - Has an upcoming appointment for placement of a drug eluding stent Continue Metoprolol - Will need to hold Eliquis on discharge - discussed plan with patient's outpatient system support analyst in [place] - Is scheduled for watchman device. Cardiomyopathy EF - 30-35% Left ventricle thrombus Echo from November showed small apical thrombus, - echo 03/11 thrombus no longer clearly visualized, more trabeculated. Knee/Elbow Pain Per patient, he is being treated for gout by his PCP. * He cannot recall if any diagnostic testing has been done. - Patient uses diclofenac gel at home--ordered 03/14 * Patient notes improvement in symptoms w/ diclofenac gel Peripheral artery disease. Aspirin held for acute bleeding, see above DM2 Jardiance held Admitting BSG 111, adequately controlled and patient is n.p.o. Conservative sliding scale as needed. Goal BSG [id number] DVT prophylaxis: SCD ordered Diet: Heart healthy CODE STATUS: DNR/DNI. Disposition: PCU, PT/OT ordered for today (2) DVT (deep venous thrombosis): (3) Gastric AVM: (4) Acute GI bleeding: (5) Hypothyroidism: (6) CAD (coronary artery disease): (7) Elevated troponin: Admission and Anticipated Discharge Date Admission Date: March 10, 2023 Supervising Physician Co-Signing Physician Notes I supervised the medical student, Darren Olivas, in the history and physical examination of this patient and agree with the documentation as provided above. Any additional recommendations/comments will be outlined here:Patient presented for increased melena/GI bleeding associated with pallor and dyspnea on exertion. Patient received inpatient cauterization procedure for bleeding in the cardia of the stomach, patient tolerated the procedure well and has not noted melanotic stools since procedure. Patient does note today that he has not moved his bowels in 2 days. In addition, patient notes worsening of his chronic knee and elbow pains (previously associated with gout) but that overall these symptoms respond well to Diclofenac gel. Physical exam with evidence of mild pallor, heart RRR w/o MRG, and lungs CTAB, abdominal exam soft, w/o TTP, and with normoactive bowel sounds. Patient has evidence of tophi (soft tissue swellings w/ dense deposits within) on elbows bilaterally, wrists, digits, and knees. Findings lik milton associated with his chronic gout. Patient's AM Hgb 8.0 (transfusion threshold < 8 given his comorbidities), afternoon recheck improved to 8.8, would recommend ongoing Hgb trend in AM prior to discharge to ensure stability. Regarding gout/tohpi continue symptomatic management with Diclofenac gel. Patient is to follow up outpatient with GI for ongoing management as well as with Cardiology for upcoming Watchman procedure. ~ Stan Gonzalez DO Attending Physicain Medical Student Supervision Note: I independently interviewed and examined the patient and verified the britton history and physical, reviewed labs and image studies, discussed the case with the medical student Monie Olivas and the Resident physician Stan Gonzalez and agree with the findings and care plan. Subjective 03/15: This morning patient is complaining of some pain in his joints, particularly in his elbows, right knee, and left wrist. Reports being treated by his PCP for gout, but does not recall if a uric acid level has been taken. Diclofenac gel used last night provided some relief of symptoms. He has not had a bowel movement in 2 days. He denies lower abdominal pain or bloating. He has eaten well and feels comfortable walking. He denies chest pain, dyspnea, or epigastric pain. Physical Exam Physical Exam: General: A&Ox3. NAD. Cooperative. Mildpallor is present HEENT: NCAT. Vision/hearing grossly intact. MMM. Pulm: No labored, no wheezing rhonchi or rales, CTAB Cardiac: RRR, no rubs murmurs or gallops. Radial pulses intact and symmetrical. Abdominal: Soft, non-distended, no TTP, no masses, normoactive bowel sounds. Extremities: Warm, dry.Pale.No edema.Nodular swellings present at the joints, most obvious on the elbows, right knee, left wrist, and left forefinger. Elbow edematous with hard deposits. No tenderness to palpation. Pain with movement. Results & Data Results & Data Vital Signs (Past 12 Hours) Vital Signs Temp Pulse Pulse Resp BP Pulse Ox O2 Del Method 03/15/23 04:54 87 03/15/23 02:51 36.7 C 86 16 99/64 L 96 Room Air 03/15/23 00:00 87 03/14/23 23:00 36.7 C 85 16 104/61 90 Room Air Resident Activity Tracking Resident Involvement: Resident Care Provided Care Provided: [facility]
[2023-03-15] MEDS: METOPROLOL SUCC 25MG EXT REL TAB PO SCH (08:16)
[2023-03-15] MEDS: SUCRALFATE 1 GM/10 ML UDC PO SCH ×4 (08:16→21:06)
[2023-03-15] MEDS: INSULIN ASPART PER UNIT CHARGE SC SCH ×4 (08:16→20:54)
[2023-03-15 09:17] LABS: Hematocrit (blood only) 25.4 % (42.0-52.0); Mean Corpuscular Hemoglobin 26.3 pg (25.0-34.0); Mean Corpuscular Hgb Conc 31.5 g/dL (32.0-36.0); Mean Corpuscular Volume 83.6 fL (80.0-100.0); Mean Platelet Volume 12.2 fL (9.4-12.4); Platelet Count 191 K/uL (130-400); RDW Coefficient of Variation 15.8 % (11.5-14.5); RDW Standard Deviation 47.8 fL (36.4-46.3); Red Blood Count 3.04 M/uL (4.70-6.10)
[2023-03-15] MEDS: PANTOprazole 40 MG TAB PO SCH ×2 (09:24→21:07)
[2023-03-15] MEDS: DICLOFENAC SOD 1% GEL 100 GM TUBE EXT PRN ×2 (11:43→17:19)
[2023-03-15 14:28] LABS: Hematocrit (blood only) 28.9 % (42.0-52.0); Hemoglobin 8.8 g/dl (14.0-18.0)
--- NOTE | 2023-03-15 16:55 | Gastroenterology Progress Note ---
Date of Service March 15, 2023 Assessment & Plan (1) GI bleed: Plan: Seems to be stable. Repeat h/h this afternoon is up to 8.8. Okay with me to discharge Admission and Anticipated Discharge Date Admission Date: March 10, 2023 Subjective Feeling well, still pale. No bowel movements since yesterday. Waiting on repeat H/H to go home Physical Exam Constitutional: WD/WN, vitals as above Results & Data Vital Signs (Past 12 Hours) Vital Signs Temp Pulse Pulse Resp BP Pulse Ox O2 Del Method 03/15/23 16:16 36.2 C L 79 20 150/77 H 100 Room Air 03/15/23 15:25 78 03/15/23 11:55 36.3 C L 80 18 96/61 L 100 Room Air 03/15/23 08:00 79 03/15/23 08:08 36.3 C L 84 20 116/67 98 Room Air 03/15/23 04:54 87
[2023-03-16] MEDS: LEVOTHYROXINE SODIUM 50 MCG TABLET PO SCH (05:33)
[2023-03-16 06:23] LABS: Hematocrit (blood only) 25.8 % (42.0-52.0); Hemoglobin 8.1 g/dl (14.0-18.0); Mean Corpuscular Hgb Conc 31.4 g/dL (32.0-36.0); Mean Platelet Volume 12.3 fL (9.4-12.4); Platelet Count 213 K/uL (130-400); RDW Coefficient of Variation 15.7 % (11.5-14.5); Red Blood Count 3.11 M/uL (4.70-6.10); White Blood Count 6.53 K/ul (4.8-10.8)
[2023-03-16 06:38] LABS: Calcium 8.9 mg/dl (8.6-10.3); Creatinine Clr Calc Pharmacy 70.1 ml/min; Est GFR (African American) 86.2 ml/min; Est GFR (Non-African American) 74.3 ml/min
--- NOTE | 2023-03-16 07:51 | Hospitalist Progress Note ---
Date of Service March 16, 2023 Assessment & Plan (1) Elevated troponin I level: Plan: Leroy is a 72 year old male with history of A Fib, CAD< hypothyroidism, DVT, gou t, and gastritis who presented for evaluation of increasing melena over the course of 2 days. Patient has a history of GI bleeding - 1 month ago his Carafate dosing was discontinued and switched to a PPI. Patient was found to have acute blood loss anemia. Received 2U pRBCs last transfusion 03/13. Now HDS with stabilizing hemoglobin. GI bleed Gastric angiodysplasia Acute blood loss anemia Patient with known history of gastric angiodysplasia. He did have an acute bleed in November of 2022. GI consulted, performed EDG 03/13 showed active bleeding in the cardia. Area was cauterized and hemostasis was achieved. Adequately resuscitated with 2U pRBCs. Hemoglobin stable between 8-9. Will give Venofer 300 mg QD while inpatient. Trend H&H. Patient will need close f/u with repeat H&H likely Saturday or Saturday. Would also order outpatient capsule endoscopy. Patient is on Eliquis for anticoagulation in the setting of paroxysmal a. fib. Patient also on ASA. Held in the setting of acute bleed. With history of active bleeding from angiodysplastic lesions there is a high likelihood of repeat bl eeding. Would defer resumption of anticoagulation to outpatient providers. Tranfuse < 7 IV PPI BID Hold ASA and Eliquis Constipation Patient without a BM for several days. Added on Miralax and patient had a brown/black BM consistent with recent UGIB. This should clear within a few days. Acute exacerbation of HFrEF Likely in the setting of blood loss anemia and acute illness. Improved with di uresis. On RA. Mild troponin elevation CAD Atrial fibrillation, paroxysmal Patient with extensive cardiac history including history of PAF on Eliquis and metoprolol. With known history of gastric angiodysplasia and acute bleeding patient is scheduled for Watchman device placement. Had previous failure of stent and subsequent double bypass. Follows with [place] [facility]. Has HFrEF with an EF of 30-35%. Troponin is slightly elevated but stable in the 20s. Limited echo with slight improvement in EF 30-35% with wall motion abnormality. Apical clot seen on 11/2022 ECHO has since resolved. Hold ASA and Eliquis. Continue metoprolol. Knee/Elbow Pain Per patient, he is being treated for gout by his PCP. * He cannot recall if any diagnostic testing has been done. Patient uses diclofenac gel at home--ordered 03/14 * Patient notes improvement in symptoms w/ diclofenac gel Peripheral artery disease. Aspirin held for acute bleeding, see above DM2 Jardiance held. Sliding scale as indicated. Goal BSG 987147 DVT prophylaxis: SCDs ordered. Pharmaceutical VTE ppx contraindicated in the setting of acute bleed Diet: Heart healthy CODE STATUS: DNR/DNI. Disposition: PCU, PT/OT (2) DVT (deep venous thrombosis): (3) Gastric AVM: (4) Acute GI bleeding: (5) Hypothyroidism: (6) CAD (coronary artery disease): (7) Elevated troponin: (8) Acute blood loss anemia: Admission and Anticipated Discharge Date Admission Date: March 10, 2023 Supervising Physician Co-Signing Physician Notes Attending Attestation and Progress Note: Pt seen/examined, chart reviewed, care plan d/w PGY2 Dr Mattie Gray. I agree w/ the britton components of her documentation. By mid-afternoon pt had 2 BMs - first was dark in color, 2nd was brown. I confirmed this with nursing staff. Eating fine. No abd pain, nausea or emesis. Tolerated IV venofer. No dyspnea. VSS, afebrile gen - NAD skin - pallor neck - no JVD heart - RRR, s1 s2 lungs - CTA b/l abd - soft NT ND BS+ ext - no edema, pulses 2+ b/l labs reviewed - Hb 8.4 this afternoon b12/folate wnl A/P: 1. acute blood loss anemia 2nd to upper GI bleeding from gastric AVM s/p cautery by Dr Yusuf 03/12/23 - stable H/H since last transfusion 2. acute/chronic anemia s/p 2 units PRBCs this admission, last on 03/13/23 3. chronic systolic CHF - compensated IV venofer 300mg x 1 today repeat again tomorrow repeat CBC in am cont to hold asa/Eliquis Nikko Lambert MD Subjective Patient seen at bedside. Pale in appearing. No acute distress. Denies any pain. No CP/SOB/lightheadedness/dizziness/abdominal pain/fevers/chills. Has not had a BM. Review of Systems Review of Systems: See HPI Physical Exam Physical Exam: General: A&Ox3. NAD. Cooperative. Mildpallor is present HEENT: NCAT. Vision/hearing grossly intact. MMM. Pulm: No labored, no wheezing rhonchi or rales, CTAB, no increased work of breathing Cardiac: RRR, no rubs murmurs or gallops. Radial pulses intact and symmetrical. Clinically well perfused Abdominal: Soft, non-distended, no TTP, no masses, normoactive bowel sounds. Extremities: Warm, dry.Pale.No edema. Neuro: alert and oriented Psych: appropriate mood and affect Skin: warm, dry, no rashes/bruising noted Results & Data Results & Data Vital Signs (Past 12 Hours) Vital Signs Temp Pulse Pulse Resp BP Pulse Ox O2 Del Method 03/16/23 03:30 36.4 C L 82 18 110/64 98 Room Air 03/15/23 23:28 78 03/15/23 23:00 37.0 C 73 18 96/57 L 99 Room Air Laboratory Results 03/16/23 05:21 03/16/23 05:21 Resident Activity Tracking Resident Involvement: Resident Care Provided Care Provided: Adult Hospital Medicine
[2023-03-16] MEDS: INSULIN ASPART PER UNIT CHARGE SC SCH ×4 (08:17→21:22)
[2023-03-16] MEDS: PANTOprazole 40 MG TAB PO SCH ×2 (08:18→21:34)
[2023-03-16] MEDS: METOPROLOL SUCC 25MG EXT REL TAB PO SCH (08:18)
[2023-03-16] MEDS: SUCRALFATE 1 GM/10 ML UDC PO SCH ×4 (08:18→21:34)
[2023-03-16] MEDS: POLYETHYLENE (MIRALAX) 17 GM PACK PO SCH ×2 (10:08→21:34)
[2023-03-16] MEDS ORDERED: IRON SUCROSE 300 MG in SODIUM CHLORIDE 0.9% 250 ML IV ONE (12:00)
[2023-03-16 14:29] LABS: Hematocrit (blood only) 26.8 % (42.0-52.0); Hemoglobin 8.4 g/dl (14.0-18.0)
[2023-03-16 15:10] LABS: Folate (Folic Acid),Ser orPlas 12.34 ng/ml (>5.38)
[2023-03-17] MEDS: LEVOTHYROXINE SODIUM 50 MCG TABLET PO SCH (05:32)
[2023-03-17 06:07] LABS: Hematocrit (blood only) 24.9 % (42.0-52.0); Hemoglobin 7.8 g/dl (14.0-18.0); Mean Corpuscular Hemoglobin 26.2 pg (25.0-34.0); Mean Corpuscular Hgb Conc 31.3 g/dL (32.0-36.0); Mean Corpuscular Volume 83.6 fL (80.0-100.0); Mean Platelet Volume 12.8 fL (9.4-12.4); Platelet Count 218 K/uL (130-400); RDW Coefficient of Variation 15.7 % (11.5-14.5); Red Blood Count 2.98 M/uL (4.70-6.10); White Blood Count 6.42 K/ul (4.8-10.8)
[2023-03-17 06:27] LABS: BUN Creatinine Ratio 33.6 (10-20); Calcium 8.8 mg/dl (8.6-10.3); Creatinine Clr Calc Pharmacy 65.5 ml/min; Est GFR (African American) 79.4 ml/min; Est GFR (Non-African American) 68.5 ml/min; Potassium 4.1 mmol/L (3.5-5.1)
[2023-03-17] MEDS: METOPROLOL SUCC 25MG EXT REL TAB PO SCH (07:29)
[2023-03-17] MEDS: SUCRALFATE 1 GM/10 ML UDC PO SCH ×4 (07:29→21:23)
[2023-03-17] MEDS ORDERED: IRON SUCROSE 300 MG in SODIUM CHLORIDE 0.9% 250 ML IV ONE (07:30)
[2023-03-17] MEDS: PANTOprazole 40 MG TAB PO SCH ×2 (07:30→21:23)
[2023-03-17] MEDS: POLYETHYLENE (MIRALAX) 17 GM PACK PO SCH (07:30)
[2023-03-17] MEDS: INSULIN ASPART PER UNIT CHARGE SC SCH ×4 (08:31→20:32)
--- NOTE | 2023-03-17 08:38 | Gastroenterology Progress Note ---
Date of Service March 17, 2023 Assessment & Plan (1) Anemia: Plan: Persistent bleeding going on. Will plan repeat EGD tomorrow (Dr. Tripp will take back over) and, if negative, he needs capsule endoscopy as an outpatient. People with AVM's in the GI tract often will have them all throughout the GI tract and this just becomes an ongoing management problem. Patient agrees to EGD Admission and Anticipated Discharge Date Admission Date: March 10, 2023 Subjective H/H drifting down despite transfusion. Had large "black/brown" stool docume nted. Not as happy as he has been recently Physical Exam Physical Exam: Still looks pale Constitutional: WD/WN, vitals as above Results & Data Vital Signs (Past 12 Hours) Vital Signs Temp Pulse Pulse Resp BP BP Pulse Ox 03/17/23 07:06 36.3 C L 80 20 115/71 99 03/17/23 04:13 36.4 C 78 16 96/61 L 97 03/17/23 00:08 36.3 C L 75 18 111/69 99 03/16/23 23:59 78 O2 Del Method 03/17/23 07:06 Room Air 03/17/23 04:13 Room Air 03/17/23 00:08 Room Air 03/16/23 23:59 Laboratory Results 03/17/23 03/17/23 03/17/23 Range/Units 08:09 05:23 05:23 WBC 6.42 (4.8-10.8) K/ul RBC 2.98 L (4.70-6.10) M/uL Hgb 7.8 L (14.0-18.0) g/dl Hct 24.9 L (42.0-52.0) % MCV 83.6 (80.0-100.0) fL MCH 26.2 (25.0-34.0) pg MCHC 31.3 L (32.0-36.0) g/dL RDW Std Deviation 47.0 H (36.4-46.3) fL RDW Coeff of Gena 15.7 H (11.5-14.5) % Plt Count 218 (130-400) K/uL MPV 12.8 H (9.4-12.4) fL Sodium 130 L (136-145) mmol/L Potassium 4.1 (3.5-5.1) mmol/L Chloride 101 (98-107) mmol/L Carbon Dioxide 20 L (21-32) mmol/L Anion Gap 9 (3-11) BUN 36 H (6-23) mg/dl Creatinine 1.07 (0.6-1.4) mg/dl Est Cr Clr Drug Dosing 65.5 ml/min Est GFR ( Amer) 79.4 ml/min Est GFR (Non-Af Amer) 68.5 ml/min BUN/Creatinine Ratio 33.6 H (10-20) Glucose 102 H (70-99(Fasting)) mg/dl POC Glucose 124 H (70-99) mg/dl Calcium 8.8 (8.6-10.3) mg/dl Vitamin B12 (180-914) pg/ml Folate (>5.38) ng/ml 03/16/23 03/16/23 03/16/23 Range/Units 20:59 16:20 14:12 WBC (4.8-10.8) K/ul RBC (4.70-6.10) M/uL Hgb (14.0-18.0) g/dl Hct (42.0-52.0) % MCV (80.0-100.0) fL MCH (25.0-34.0) pg MCHC (32.0-36.0) g/dL RDW Std Deviation (36.4-46.3) fL RDW Coeff of Gena (11.5-14.5) % Plt Count (130-400) K/uL MPV (9.4-12.4) fL Sodium (136-145) mmol/L Potassium (3.5-5.1) mmol/L Chloride (98-107) mmol/L Carbon Dioxide (21-32) mmol/L Anion Gap (3-11) BUN (6-23) mg/dl Creatinine (0.6-1.4) mg/dl Est Cr Clr Drug Dosing ml/min Est GFR ( Amer) ml/min Est GFR (Non-Af Amer) ml/min BUN/Creatinine Ratio (10-20) Glucose (70-99(Fasting)) mg/dl POC Glucose 129 H 123 H (70-99) mg/dl Calcium (8.6-10.3) mg/dl Vitamin B12 416 (180-914) pg/ml Folate 12.34 (>5.38) ng/ml 03/16/23 03/16/23 Range/Units 14:12 11:37 WBC (4.8-10.8) K/ul RBC (4.70-6.10) M/uL Hgb 8.4 L (14.0-18.0) g/dl Hct 26.8 L (42.0-52.0) % MCV (80.0-100.0) fL MCH (25.0-34.0) pg MCHC (32.0-36.0) g/dL RDW Std Deviation (36.4-46.3) fL RDW Coeff of Gena (11.5-14.5) % Plt Count (130-400) K/uL MPV (9.4-12.4) fL Sodium (136-145) mmol/L Potassium (3.5-5.1) mmol/L Chloride (98-107) mmol/L Carbon Dioxide (21-32) mmol/L Anion Gap (3-11) BUN (6-23) mg/dl Creatinine (0.6-1.4) mg/dl Est Cr Clr Drug Dosing ml/min Est GFR ( Amer) ml/min Est GFR (Non-Af Amer) ml/min BUN/Creatinine Ratio (10-20) Glucose (70-99(Fasting)) mg/dl POC Glucose 155 H (70-99) mg/dl Calcium (8.6-10.3) mg/dl Vitamin B12 (180-914) pg/ml Folate (>5.38) ng/ml (1) Anemia Anemia type: unspecified type Qualified Code(s): D64.9 - Anemia, unspecified
--- NOTE | 2023-03-17 09:59 | Hospitalist Progress Note ---
Date of Service March 17, 2023 Assessment & Plan (1) Elevated troponin I level: Plan: Leroy is a 72 year old male with history of A Fib, CAD< hypothyroidism, DVT, gou t, and gastritis who presented for evaluation of increasing melena over the course of 2 days. Patient has a history of GI bleeding - 1 month ago his Carafate dosing was discontinued and switched to a PPI. Patient was found to have acute blood loss anemia. Received 2U pRBCs last transfusion 03/13. Now HDS with stabilizing hemoglobin. GI bleed Gastric angiodysplasia Acute blood loss anemia Patient with known history of gastric angiodysplasia. He did have an acute bleed in November of 2022. GI consulted, performed EGD 03/13 showed active bleeding in the cardia. Area was cauterized and hemostasis was achieved. Adequately resuscitated with 2U pRBCs. Hemoglobin stable between 8-9. Will give Venofer 300 mg QD while inpatient. Discussed with GI as hemoglobin slowly downtrending. Lower concern for active bleed. GI plan to repeat scope 03/18. If normal patient will need outpatient capsule endoscopy. Trend H&H Patient is on Eliquis for anticoagulation in the setting of paroxysmal a. fib. Patient also on ASA. Held in the setting of acute bleed. With history of active bleeding from angiodysplastic lesions there is a high likelihood of repeat bleeding. Would defer resumption of anticoagulation to outpatient providers. Tranfuse < 7.5 with active bleeding IV PPI BID Hold ASA and Eliquis Hyponatremia Patient with steadily dropping sodium with unknown etiology. 137 on admit. Now 128. Urine and plasma osmol. Also UCr and Jose Alberto for further eval. FENGI Patient with acute onset nausea today. Will de-escalate diet to CLD. Plan for NPO at midnight for EGD. Also ordered repeat type and screen as patient with nausea and dropping hemoglobin. Constipation Patient without a BM for several days. Added on Miralax and patient had a brown/black BM consistent with recent UGIB. This should clear within a few days. Acute exacerbation of HFrEF Likely in the setting of blood loss anemia and acute illness. Improved with diuresis. On RA. Mild troponin elevation CAD Atrial fibrillation, paroxysmal Patient with extensive cardiac history including history of PAF on Eliquis and metoprolol. With known history of gastric angiodysplasia and acute bleeding patient is scheduled for Watchman device placement. Had previous failure of stent and subsequent double bypass. Follows with [place] [facility]. Has HFrEF with an EF of 30-35%. Troponin is slightly elevated but stable in the 20s. Limited echo with slight improvement in EF 30-35% with wall motion abnormality. Apical clot seen on 11/2022 ECHO has since resolved. Hold ASA and Eliquis. Continue metoprolol. Knee/Elbow Pain Per patient, he is being treated for gout by his PCP. * He cannot recall if any diagnostic testing has been done. Patient uses diclofenac gel at home--ordered 03/14 * Patient notes improvement in symptoms w/ diclofenac gel Peripheral artery disease. Aspirin held for acute bleeding, see above DM2 Jardiance held. Sliding scale as indicated. Goal BSG [id number] DVT prophylaxis: SCDs ordered. Pharmaceutical VTE ppx contraindicated in the setting of acute bleed Diet: Heart healthy CODE STATUS: DNR/DNI. Disposition: PCU, PT/OT (2) DVT (deep venous thrombosis): (3) Gastric AVM: (4) Acute GI bleeding: (5) Hypothyroidism: (6) CAD (coronary artery disease): (7) Elevated troponin: (8) Hyponatremia: Admission and Anticipated Discharge Date Admission Date: March 10, 2023 Supervising Physician Co-Signing Physician Notes Attending Attestation and Progress Note: Pt seen/examined, chart reviewed, care plan d/w PGY2 Dr Mattie Gray. I agree w/ the britton components of her documentation. No BM since yesterday Denies abd pain/nausea/emesis. Denies dizziness/lightheadedness. Appetite fair at best. No melena or BRBPR. VSS, afebrile, BPs low-normal at times gen - NAD skin - pallor neck - no JVD heart - regular rate, irregular (extra beats), s1 s2, no murmur lungs - CTA b/l abd - soft NT ND BS+ ext - no edema, pulses 2+ b/l hemoglobin today -- 7.8; repeat 8.7 this afternoon Na 130 this am, then 128 this afternoon A/P: 1. acute blood loss anemia 2nd to upper GI bleeding from gastric AVM s/p cautery by Dr Yusuf 03/12/23 - fluctuating H/H over the last 2-3 days. Hopefully this represents lab variation as opposed to low-grade ongoing bleeding. GI recommends repeat EGD tomorrow to be sure no recurrent bleeding. 2. acute/chronic anemia s/p 2 units PRBCs this admission, last on 03/13/23; cont PPI + carafate 3. chronic systolic CHF - compensated 4. iron def - repeat IV venofer 300mg x 1 again today; consider 3rd dose on 03/18/23 5. hyponatremia - urine Na 11 suggestive of solute deficiency; would avoid NS hydration in light of EF of 30-35%; start NaCL tabs; repeat serum Na am cont to hold asa/Eliquis Nikko Lambert MD Subjective Patient concerned about dropping hemoglobin. Uncomfortable with going home at present. Would like further evaluation. Continues to denies lightheadedness, SOB, dizziness etc. No f/c/CP/n/v Review of Systems Review of Systems: See HPI Physical Exam Physical Exam: General: A&Ox3. NAD. Cooperative. Mildpallor is present HEENT: NCAT. Vision/hearing grossly intact. MMM. Pulm: No labored, no wheezing rhonchi or rales, CTAB, no increased work of breathing Cardiac: RRR, no rubs murmurs or gallops. Radial pulses intact and symmetrical. Clinically well perfused Abdominal: Soft, non-distended, no TTP, no masses, normoactive bowel sounds. Extremities: Warm, dry.Pale.No edema. Neuro: alert and oriented Psych: appropriate mood and affect Skin: warm, dry, no rashes/bruising noted Results & Data Results & Data Vital Signs (Past 12 Hours) Vital Signs Temp Pulse Pulse Resp BP BP Pulse Ox 03/17/23 08:00 85 03/17/23 07:06 36.3 C L 80 20 115/71 99 03/17/23 04:13 36.4 C 78 16 96/61 L 97 03/17/23 00:08 36.3 C L 75 18 111/69 99 03/16/23 23:59 78 O2 Del Method 03/17/23 08:00 03/17/23 07:06 Room Air 03/17/23 04:13 Room Air 03/17/23 00:08 Room Air 03/16/23 23:59 Laboratory Results 03/17/23 14:17 03/17/23 14:17 Resident Activity Tracking Resident Involvement: Resident Care Provided Care Provided: Adult Hospital Medicine
--- NOTE | 2023-03-17 10:05 | Billing Data ---
Date of Service March 16, 2023 Coding Level of Care Code 41601 SUB INP/OBS CARE
[2023-03-17] MEDS ORDERED: ONDANSETRON 4 MG OD TAB PO PRN (10:32)
[2023-03-17 12:36] LABS: Creatinine Urine Random 123.1 mg/dl
[2023-03-17 14:49] LABS: Hematocrit (blood only) 28.1 % (42.0-52.0); Hemoglobin 8.7 g/dl (14.0-18.0)
[2023-03-17 15:08] LABS: BUN Creatinine Ratio 30.9 (10-20); Calcium 8.8 mg/dl (8.6-10.3); Est GFR (African American) 67.1 ml/min; Est GFR (Non-African American) 57.9 ml/min; Potassium 4.3 mmol/L (3.5-5.1)
[2023-03-17] MEDS ORDERED: Nursing to Pharmacy Communication SCH (16:15)
[2023-03-17] MEDS: SODIUM CHLORIDE 1 GM TABLET PO SCH (21:24)
[2023-03-17] MEDS: DOCUSATE SODIUM 100 MG CAP PO SCH (21:24)
[2023-03-18] MEDS ORDERED: MELATONIN 3 MG TAB PO PRN (00:21)
[2023-03-18] MEDS ORDERED: Nursing to Pharmacy Communication SCH ×2 (05:15→11:15)
[2023-03-18] MEDS: LEVOTHYROXINE SODIUM 50 MCG TABLET PO SCH (05:38)
[2023-03-18] MEDS ORDERED: INSULIN ASPART PER UNIT CHARGE SC SCH (06:00)
[2023-03-18] MEDS ORDERED: IRON SUCROSE 300 MG in SODIUM CHLORIDE 0.9% 250 ML IV ONE (06:00)
[2023-03-18 06:27] LABS: Hematocrit (blood only) 25.7 % (42.0-52.0); Hemoglobin 8.3 g/dl (14.0-18.0); Mean Corpuscular Hemoglobin 26.3 pg (25.0-34.0); Mean Corpuscular Hgb Conc 32.3 g/dL (32.0-36.0); Mean Corpuscular Volume 81.6 fL (80.0-100.0); Mean Platelet Volume 12.7 fL (9.4-12.4); Nucleated RBC # (auto) 0.03 K/uL (0-0.12); Nucleated RBC % (auto) 0.3 %; Platelet Count 239 K/uL (130-400); RDW Coefficient of Variation 16.1 % (11.5-14.5); RDW Standard Deviation 47.3 fL (36.4-46.3); Red Blood Count 3.15 M/uL (4.70-6.10); White Blood Count 8.85 K/ul (4.8-10.8)
[2023-03-18 06:42] LABS: BUN Creatinine Ratio 31.7 (10-20); Calcium 8.8 mg/dl (8.6-10.3); Creatinine Clr Calc Pharmacy 55.6 ml/min; Est GFR (African American) 65.2 ml/min; Est GFR (Non-African American) 56.2 ml/min; Potassium 4.4 mmol/L (3.5-5.1)
--- NOTE | 2023-03-18 07:18 | Hospitalist Progress Note ---
Date of Service March 18, 2023 Assessment & Plan (1) Elevated troponin I level: Plan: Leroy Donahue is a 72 year-old male with history of A Fib, CAD< hypothyroidism, DVT, gout, and gastritis who presented for evaluation of increasing melena over the course of 2 days. Patient has a history of GI bleeding - 1 month ago his Carafate dosing was discontinued and switched to a PPI. Patient was found to have acute blood loss anemia. Received 2U pRBCs last transfusion 03/13. Now HDS with stabilizing hemoglobin. GI bleed Gastric angiodysplasia Acute blood loss anemia Patient with known history of gastric angiodysplasia. He did have an acute bleed in November of 2022. GI consulted, performed EGD 03/13 showed active bleeding in the cardia. Area was cauterized and hemostasis was achieved. Adequately resuscitated with 2U pRBCs. Hemoglobin stable between 8-9. Repeat scope today 03/18. -Found non-bleeding gastric ulcer -Small hiatal hernia -Recommend outpatient capsule endoscopy. -Recommend not restarting Eliquis Trend H&H -- 8.3 today Will give Venofer 300 mg QD while inpatient. Patient is on Eliquis for anticoagulation in the setting of paroxysmal a. fib. Patient also on ASA. Held in the setting of acute bleed. With history of active bleeding from angiodysplastic lesions there is a high likelihood of repeat bleeding. Would defer resumption of anticoagulation to outpatient providers. Transfuse < 7.5 with active bleeding IV PPI BID Hold ASA and Eliquis at this time Plan for discharge tomorrow pending conversation with patient's machine folder in regards to anticoagulation. Current plan to d/c aspirin, hold Eliquis for 2 weeks with close follow up to allow time for ulcers to heal. Then plan to restart Eliquis at low dose, escalate to full (current prescribed) dose of bid after 1-2 weeks. Goal of preparing patient for watchman placement. Hyponatremia Patient with steadily dropping sodium with unknown etiology. 137 on admit. Now 128. Urine and plasma osmol w/in normal limits. -1L NS 80ml/hr started 03/18 -Monitor closely for volume overload FENGI Patient with acute onset nausea last night + NPO at midnight for EGD. -Resumed CLD --> progress as tolerated Constipation Patient had BM yesterday (black/brown consistent with recent bleed) -Continue miralax PRN Acute exacerbation of HFrEF Likely in the setting of blood loss anemia and acute illness. Improved with diuresis. On RA. -Given this history, low threshold for d/cing IVF -Lasix PRN Mild troponin elevation CAD Atrial fibrillation, paroxysmal Patient with extensive cardiac history including history of PAF on Eliquis and metoprolol. With known history of gastric angiodysplasia and acute bleeding patient is scheduled for Watchman device placement. Had previous failure of stent and subsequent double bypass. Follows with [place] [facility]. Has HFrEF with an EF of 30-35%. Troponin is slightly elevated but stable in the 20s. Limited echo with slight improvement in EF 30-35% with wall motion abnormality. Apical clot seen on 11/2022 ECHO has since resolved. -Hold ASA and Eliquis pending conversation with patient's machine folder -Continue metoprolol. Knee/Elbow Pain Per patient, he is being treated for gout by his PCP. -He cannot recall if any diagnostic testing has been done. Patient uses diclofenac gel at home--ordered 03/14 -Patient notes improvement in symptoms w/ diclofenac gel -Patient was placed on indomethacin about 6 months ago, but this was d/[place] after his initial GI bleed -Discussed with patient need to limit use of NSAIDs Peripheral artery disease. Aspirin held for acute bleeding, see above DM2 Jardiance held. Sliding scale as indicated. Goal BSG [id number] DVT prophylaxis: SCDs ordered. Pharmaceutical VTE ppx contraindicated in the setting of acute bleed Diet: Heart healthy CODE STATUS: DNR/DNI. Disposition: PCU, PT/OT (2) DVT (deep venous thrombosis): (3) Gastric AVM: (4) Acute GI bleeding: (5) Hypothyroidism: (6) CAD (coronary artery disease): (7) Elevated troponin: Admission and Anticipated Discharge Date Admission Date: March 10, 2023 Supervising Physician Co-Signing Physician Notes I personally examined the patient and verified all britton points of history and exam, discussed case, and agree with decision making with Dr Rain feeling better. d/w primary machine folder dr llanos vitals noted nad heent nc at mmm breathing unlabored no accessory muscles good effort acute blood loss anemia due to peptic ulcer disease/GI bleedingholding aspirin and Eliquis for now. Protonix twice daily, bleeding fortunately appears to have stopped coronary disease/atrial fibrillationafter discussion with his cardiologistwe will need to resume both the aspirin and the Eliquis over time if he tolerateshis machine folder felt that the aspirin is a higher priority. Given this, we will definitely need to maintain him on heavy acid suppression for the foreseeable, if not indefinite, future hopefully home soon otherwise as above Subjective Overnight Leroy had an episode of shortness of breath for which he was assessed by the on-call provider, who attributed it to asymptomatic anemia. Leroy attributes it to the pain of having laid on his pacemaker. He has had no repeat episodes of SOB. He feels "queasy" this morning. He has not had a bowel movement since yesterday. He is still having pain when moving his joints, but does not consider it to be "serious" pain. Review of Systems Review of Systems: As per above Physical Exam Physical Exam: General: A&Ox3. NAD. Cooperative. Mild pallor is present HEENT: NCAT. Vision/hearing grossly intact. MMM. Pulm: No labored, no wheezing rhonchi or rales, CTAB, no increased work of breathing Cardiac: RRR, no rubs murmurs or gallops. Radial pulses intact and symmetrical. Clinically well perfused Abdominal: Soft, non-distended, no TTP, no masses, normoactive bowel sounds. Extremities: Warm, dry. Pale. No edema. Neuro: alert and oriented Psych: appropriate mood and affect Skin: warm, dry, no rashes/bruising noted Results & Data Results & Data Vital Signs (Past 12 Hours) Vital Signs Temp Pulse Pulse Resp BP Pulse Ox O2 Del Method 03/18/23 03:22 36.5 C 81 20 108/61 98 Room Air 03/17/23 23:29 36.3 C L 85 18 121/69 97 Room Air 03/17/23 23:37 86 Resident Activity Tracking Resident Involvement: Resident Care Provided Care Provided: Adult Hospital Medicine
[2023-03-18] MEDS: POLYETHYLENE (MIRALAX) 17 GM PACK PO SCH (07:35)
[2023-03-18] MEDS: PANTOprazole 40 MG TAB PO SCH ×2 (07:56→20:35)
[2023-03-18] MEDS: METOPROLOL SUCC 25MG EXT REL TAB PO SCH (07:56)
[2023-03-18] MEDS: SUCRALFATE 1 GM/10 ML UDC PO SCH ×4 (07:57→20:35)
[2023-03-18] MEDS: DOCUSATE SODIUM 100 MG CAP PO SCH ×2 (07:57→20:35)
[2023-03-18] MEDS: SODIUM CHLORIDE 1 GM TABLET PO SCH (07:57)
--- NOTE | 2023-03-18 08:42 | Billing Data ---
Date of Service March 17, 2023 Coding Level of Care Code 68559 SUB INP/OBS CARE
[2023-03-18] MEDS ORDERED: POLYETHYLENE (MIRALAX) 17 GM PACK PO SCH (09:00)
--- NOTE | 2023-03-18 09:17 | History & Physical Bridge Note ---
Date of Service March 18, 2023 History & Physical Bridge Note I have examined the patient, reviewed the History & Physical and in the interval since the performance of the History & Physical I have noted the following changes of clinical significance: no changes noted. Patient is a 72 yo male with anemia. He has been NPO since prior to midnight. He denies any new issues at the present time. Last documented black stool was 03/16/23. Patient is currently on Protonix 40 mg BID. Keep NPO and proceed with EGD today (03/18/23). Supervising Physician Co-Signing Physician Notes Agree with JOSE ROBERTO Mills as above Abd: Soft, NT, ND, +BS Continue current therapy and supportive care Proceed with EGD now
--- NOTE | 2023-03-18 09:23 | Anesthesiology Consultation ---
Date of Service March 18, 2023 Assessment & Plan (1) Encounter for pre-operative examination: Chart Review Chart Review: Acceptable Risk for Surgery, Patient NOT seen in Pre Admission Testing and order entry specialist initiated Consults Requested none History Surgery Operation Date: 03/12/23 17:30 Proposed Procedures p Esophagogastroduodenoscopy Dr. Paramjit Yusuf Jr, MD Operation Date: 03/18/23 17:30 Proposed Procedures p Esophagogastroduodenoscopy Dr Qasim Joseph Case, Height/Weight Height: 5 ft 11 in Weight: 84.2 kg Allergies Allergy/AdvReac Type Severity Reaction Status Date / Time allopurinol [From Zyloprim] Allergy Vomiting Verified 03/10/23 14:37 clopidogrel [From Plavix] Allergy Unknown Verified 03/10/23 14:37 atorvastatin AdvReac Unknown Verified 03/10/23 14:37 rosuvastatin [From Crestor] AdvReac Unknown Verified 03/10/23 14:37 simvastatin [From Zocor] AdvReac Unknown Verified 03/10/23 14:37 Medications Home Medications Medication Instructions Recorded Confirmed Last Taken apixaban 5 mg tablet (Eliquis) 5 mg BID 12/09/22 03/10/23 03/10/23 aspirin 81 mg tablet,delayed 81 mg PO DAILY 12/09/22 03/10/23 03/10/23 release (Enteric Coated Aspirin) cholecalciferol (vitamin D3) 250 500 mcg PO DAILY 12/09/22 03/10/23 03/10/23 mcg (10,000 unit) tablet cyanocobalamin (vitamin B-12) 1,000 mcg PO DAILY 12/09/22 03/10/23 03/10/23 1,000 mcg capsule empagliflozin 10 mg tablet 10 mg PO DAILY 12/09/22 03/10/23 03/10/23 (Jardiance) ferrous sulfate 325 mg (65 mg 325 mg PO Q OTHER DAY 12/09/22 03/10/23 03/10/23 iron) capsule,extended release fluticasone propionate 50 2 spray intranasal DAILY 12/09/22 03/10/23 03/10/23 mcg/actuation nasal spray,suspension levothyroxine 50 mcg tablet 50 mcg PO DAILY 12/09/22 03/10/23 03/10/23 (Synthroid) magnesium oxide 400 mg PO BID 12/09/22 03/10/23 03/10/23 metoprolol succinate 25 mg 25 mg PO DAILY 12/09/22 03/10/23 03/10/23 tablet,extended release 24 hr atorvastatin 40 mg tablet 10 mg PO HS 01/24/23 03/10/23 03/10/23 pantoprazole 40 mg tablet,delayed 40 mg PO BID #60 tabs 03/08/23 03/10/23 03/10/23 release (Protonix) febuxostat 40 mg tablet 40 mg PO DAILY 03/10/23 03/10/23 03/10/23 spironolactone 25 mg tablet 25 mg PO DAILY 03/10/23 03/10/23 03/10/23 Active Medications Generic Name Dose Route Start Last Admin Trade Name Freq PRN Reason Stop Dose Admin Acetaminophen 650 mg 03/15/23 03:44 03/15/23 04:27 Acetaminophen 325 Mg Tab PO 04/14/23 03:43 650 mg Q4H PRN Administration Pain Diclofenac Sodium 2 gm 03/14/23 13:08 03/15/23 17:19 Diclofenac Sod 1% Gel 100 Gm Tube EXT 04/13/23 20:59 2 gm BID PRN Administration Knee pain Protocol Docusate Sodium 100 mg 03/17/23 21:00 03/18/23 07:57 Docusate Sodium 100 Mg Cap PO 04/16/23 20:59 100 mg BID ROSEMARIE Administration Insulin Aspart 0 units 03/18/23 06:00 03/18/23 06:26 Insulin Aspart Per Unit Charge SC 04/17/23 05:59 Not Given Q6 ROSEMARIE Levothyroxine Sodium 50 mcg 03/11/23 06:30 03/18/23 05:38 Levothyroxine Sodium 50 Mcg Tablet PO 04/10/23 06:29 50 mcg DAILYBB ROSEMARIE Administration Metoprolol Succinate 25 mg 03/11/23 09:00 03/18/23 07:56 Metoprolol Succ 25mg Ext Rel Tab PO 04/10/23 08:59 25 mg DAILY ROSEMARIE Administration Ondansetron HCl 4 mg 03/17/23 10:32 03/17/23 10:39 Ondansetron 4 Mg Od Tab PO 04/16/23 10:31 4 mg Q6H PRN Administration Nausea Pantoprazole Sodium 40 mg 03/14/23 21:00 03/18/23 07:56 Pantoprazole 40 Mg Tab PO 04/13/23 20:59 40 mg BID ROSEMARIE Administration Polyethylene Glycol 17 gm 03/18/23 09:00 03/18/23 07:35 Polyethylene (Miralax) 17 Gm Pack PO 04/17/23 08:59 Not Given PRN ROSEMARIE Sodium Chloride 1 gm 03/17/23 21:00 03/18/23 07:57 Sodium Chloride 1 Gm Tablet PO 03/19/23 20:59 1 gm BID ROSEMARIE Administration Sucralfate 1 gm 03/12/23 21:00 03/18/23 07:57 Sucralfate 1 Gm/10 Ml Udc PO 04/11/23 20:59 1 gm QID ROSEMARIE Administration NPO Date Last Intake of Fluids: 03/12/23 Time Last Intake of Fluids: 08:30 Date Last Intake of Solids: 03/11/23 Time Last Intake of Solids: 18:00 Past Medical History Medical History (Updated 03/18/23 @ 09:22 by Shamir Yeager MD) Atrial fibrillation CAD (coronary artery disease) Encounter for pre-operative examination Encounter for pre-operative examination Gout HFrEF (heart failure with reduced ejection fraction) Hypothyroidism LV (left ventricular) mural thrombus PAD (peripheral artery disease) Past Surgical History Surgical History AICD (automatic cardioverter/defibrillator) present H/O esophagogastroduodenoscopy H/O hemorrhoidectomy History of rectal sphincterotomy Hx of cholecystectomy S/P CABG (coronary artery bypass graft) Social History Smoking Status: Former smoker Hx Alcohol Use: No Hx Substance Use: No substance use type: does not use Physical Exam Vital Signs Last Vital Signs Temp 36.9 C 03/18/23 07:15 Pulse 91 H 03/18/23 07:15 Resp 19 03/18/23 07:15 BP 98/70 L 03/18/23 07:15 Pulse Ox 97 03/18/23 07:15 O2 Del Method Room Air 03/18/23 07:15 Testing Laboratory Results 03/18/23 05:36 03/18/23 05:36 PT 13.0 Seconds (9.0-12.0) H 03/10/23 14:28 INR 1.2 (0.9-1.1) H 03/10/23 14:28 APTT 25.9 Seconds (21.0-31.0) 03/10/23 14:28 Urine Color Yellow 03/10/23 Unknown Urine Appearance Clear (Clear) 03/10/23 Unknown Urine pH 6.5 (4.5-7.5) 03/10/23 Unknown Ur Specific Addison 1.021 (1.000-1.030) 03/10/23 Unknown Urine Protein Negative (Negative) 03/10/23 Unknown Urine Glucose (UA) 3+ (Negative) H 03/10/23 Unknown Urine Ketones Negative (Negative) 03/10/23 Unknown Urine Nitrite Negative (Negative) 03/10/23 Unknown Ur Leukocyte Esterase Negative (Negative) 03/10/23 Unknown Urine WBC (Auto) 0 /hpf (0-5) 03/10/23 Unknown Urine RBC (Auto) >30 /hpf (0-4) H 03/10/23 Unknown U Hyaline Cast (Auto) 0 /lpf (0-5) 03/10/23 Unknown U Epithel Cells (Auto) 0-5 /lpf (0-5) 03/10/23 Unknown Urine Bacteria (Auto) Negative (Negative) 03/10/23 Unknown Blood Type B Positive 03/17/23 05:23 Rho(D) Type Cancelled 03/12/23 09:16 Antibody Screen NEGATIVE 03/17/23 05:23 03/18/23 06:23 POC Glucose 132 H Electrocardiogram Date: 03/10/23 Test Reason : Blood Pressure : / mmHG Vent. 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 Lateral leads Abnormal ECG When compared with ECG of 10-MAR-2023 14:19, Premature ventricular complexes are now Present Premature atrial complexes are now Present Confirmed by Joey Wolfe ([id number]) on 03/11/2023 8:37:51 AM Chest X-Ray Date: 03/10/23 XR chest 1V portable CLINICAL HISTORY: Dyspnea. COMPARISON STUDY: Chest radiograph December 16, 2022. FINDINGS: There are median sternotomy wires. Suspected defibrillator device is incidentally noted. Cardiomegaly is unchanged. There is a trace right pleural effusion. There is no pneumothorax. There is no consolidation to suggest pneumonia. Linear right basilar densities favor atelectasis or scarring. There is pulmonary vascular congestion without overt pulmonary edema. IMPRESSION: Cardiomegaly. Pulmonary vascular congestion with a trace right pleural effusion. Echocardiogram Date: 03/11/23 EF: 30-35% LV Function: dysfunctional RWMA: + akinetic and + hypokinetic Other Findings: + LVH (mild)
[2023-03-18] MEDS ORDERED: PHENYLEPHRINE 100MCG/ML 5ML SYR ONE (10:06)
[2023-03-18] MEDS ORDERED: LIDOCAINE 2% 2 ML VIAL/AMP(20MG/ML) INFIL ONE (10:06)
[2023-03-18] MEDS ORDERED: PROPOFOL IV EMULSION 10 MG/ML 20 ML VIAL IV ONE (10:06)
--- NOTE | 2023-03-18 10:43 | GI REPORT ---
Patient Name: Leroy Donahue Procedure Date: 03/18/2023 10:05 AM Date of : 1950 Admit Type: Inpatient Age: 72 Gender: Male Attending MD: Damion Tripp DO, Procedure: Upper GI endoscopy Providers: Damion Tripp DO Referring MD: Memo Lora Md Indications: Acute post hemorrhagic anemia Medicines: Monitored Anesthesia Care Complications: No immediate complications. Estimated Blood Loss: Estimated blood loss: none. Procedure: Pre-Anesthesia Assessment: - Prior to the procedure, a History and Physical was performed, and patient medications and allergies were reviewed. The patient's tolerance of previous anesthesia was also reviewed. The risks and benefits of the procedure and the sedation options and risks were discussed with the patient. All questions were answered, and informed consent was obtained. Prior Anticoagulants: The patient has taken Eliquis (apixaban), last dose was 8 days prior to procedure. ASA Grade Assessment: IV - A patient with severe systemic disease that is a constant threat to life. After reviewing the risks and benefits, the patient was deemed in satisfactory condition to undergo the procedure. After obtaining informed consent, the endoscope was passed under direct vision. Throughout the procedure, the patient's blood pressure, pulse, and oxygen saturations were monitored continuously. The Scope was introduced through the mouth, and advanced to the third part of duodenum. The upper GI endoscopy was accomplished without difficulty. The patient tolerated the procedure well. Findings: The esophagus was normal. A small hiatal hernia was present. There were 2 endoclips attached to fundus, from prior EGD. One non-bleeding superficial gastric ulcer with no stigmata of bleeding was found in the gastric antrum. The lesion was 2 mm in largest dimension. The examined duodenum was normal. Impression: - Normal esophagus. - Small hiatal hernia. - Non-bleeding gastric ulcer with no stigmata of bleeding. - Normal examined duodenum. - No specimens collected. Recommendation: - [facility]. - Advance diet as tolerated. - Continue present medications. - Consider outpatient capsule endoscopy study. - Recommend no further anticoagulation with Eliquis due to recurrent GI bleeding. Damion Tripp DO 03/18/2023 10:43:08 AM This report has been signed electronically. Note Initiated On: 03/18/2023 10:05 AM Number of Addenda: 0 I attest to the content of the Intraoperative Record and orders documented therein, exceptions below {[id number]}
[2023-03-18] MEDS: INSULIN ASPART PER UNIT CHARGE SC SCH ×3 (12:44→20:08)
--- NOTE | 2023-03-18 15:35 | Anesthesiology Progress Note ---
Date of Service March 18, 2023 Anesthesia Post Procedure Vital Signs Vital Signs: Temp Pulse Pulse Resp BP Pulse Ox O2 Del Method 03/18/23 11:33 36.3 C L 72 18 117/77 100 Room Air 03/18/23 11:06 76 18 121/71 99 Room Air 03/18/23 10:51 77 16 122/75 98 Room Air 03/18/23 10:36 84 16 125/71 94 Room Air 03/18/23 09:39 78 03/18/23 09:39 Room Air 03/18/23 09:34 36.5 C 96 H 18 121/67 98 Room Air 03/18/23 07:15 36.9 C 91 H 19 98/70 L 97 Room Air 03/18/23 03:22 36.5 C 81 20 108/61 98 Room Air 03/17/23 23:29 36.3 C L 85 18 121/69 97 Room Air 03/17/23 23:37 86 03/17/23 19:11 36.2 C L 81 17 124/77 99 Room Air Pain Intensity Left Elbow: Pain Intensity: 5 Transfer of Care Handoff Completed per policy Notes Mental Status: alert / awake / arousable and participated in evaluation Patient Amnestic to Procedure: Yes Nausea / Vomiting: adequately controlled Pain: adequately controlled Airway Patency, RR, SpO2: stable & adequate BP & HR: stable & adequate Hydration State: stable & adequate Anesthetic Complications: no major complications apparent
[2023-03-18] MEDS ORDERED: SODIUM CHLORIDE 0.9% 1000ML 1,000 ML IV SCH (15:45)
--- NOTE | 2023-03-18 19:09 | Billing Data ---
Date of Service March 18, 2023 Coding Level of Care Code 67405 SUB INP/OBS CARE MIN
[2023-03-19] MEDS: LEVOTHYROXINE SODIUM 50 MCG TABLET PO SCH (06:12)
[2023-03-19 06:36] LABS: Hematocrit (blood only) 27.1 % (42.0-52.0); Hemoglobin 8.5 g/dl (14.0-18.0); Mean Corpuscular Hemoglobin 25.8 pg (25.0-34.0); Mean Corpuscular Hgb Conc 31.4 g/dL (32.0-36.0); Mean Corpuscular Volume 82.1 fL (80.0-100.0); Mean Platelet Volume 12.4 fL (9.4-12.4); Nucleated RBC # (auto) 0.03 K/uL (0-0.12); Nucleated RBC % (auto) 0.3 %; Platelet Count 253 K/uL (130-400); RDW Coefficient of Variation 16.6 % (11.5-14.5); RDW Standard Deviation 48.1 fL (36.4-46.3); White Blood Count 9.92 K/ul (4.8-10.8)
[2023-03-19 06:54] LABS: BUN Creatinine Ratio 34.2 (10-20); Calcium 8.8 mg/dl (8.6-10.3); Creatinine Clr Calc Pharmacy 58.4 ml/min; Est GFR (African American) 69.1 ml/min; Est GFR (Non-African American) 59.6 ml/min; Potassium 4.3 mmol/L (3.5-5.1)
[2023-03-19] MEDS: INSULIN ASPART PER UNIT CHARGE SC SCH ×2 (08:17→12:23)
[2023-03-19] MEDS: SUCRALFATE 1 GM/10 ML UDC PO SCH ×2 (08:20→13:20)
[2023-03-19] MEDS: PANTOprazole 40 MG TAB PO SCH (08:20)
[2023-03-19] MEDS: METOPROLOL SUCC 25MG EXT REL TAB PO SCH (08:20)
[2023-03-19] MEDS: DOCUSATE SODIUM 100 MG CAP PO SCH (08:20)
[2023-03-19] MEDS: POLYETHYLENE (MIRALAX) 17 GM PACK PO SCH (08:20)
--- NOTE | 2023-03-19 10:55 | Communication Note ---
Date of Service: March 19, 2023 Patient underwent a repeat EGD on 03/18/23 and no significant abnormalities were found to explain ongoing anemia. The recommendations moving forward would be to supportively treat anemia, cardiac consultation to consider discontinuing his anticoagulation, and consideration of an outpatient VCE for further evaluation of anemia. He can continue Protonix 40 mg BID indefinitely upon discharge.
--- NOTE | 2023-03-19 14:04 | Discharge Summary ---
Date of Service March 19, 2023 Admission HPI Per Admitting Provider Leroy is a 72-year-old male with a past medical history of admission 12/09/2022 - 12/19/2022 for GI bleed due to angiodysplasia, hematuria, LV mural thrombus, heart failure with reduced ejection fraction, gout, Achilles tendinitis, hypothyroidism. At last hospitalization: Had seen 3 hospitals over 2 weeks for ongoing GI leading and required 8 units of transfusion at outside hospitals. While inpatient here was found to have gastric AVM with active bleeding and s/p clip placed. Gastric ulcer was clipped, no active bleeding at that site. Was continued on Protonix and was stable following this. He was treated while inpatient for possible superimposed pneumonia with cefepime and was found to have a left lower lobe pneumonia on chest x-ray. He did have a history of lower extremity DVT diagnosed 12/13/2022, was restarted on Eliquis at time of discharge. 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 He is anticoagulated Echo 11/2022: EF 25-30% with small apical thrombus, suspect endothelialized and unlikely to embolize at that time. Ongoing follows with Dr. Orona cardiology. Presents to the emergency department dyspnea on exertion worsening over the last few months. No chest pain or chest pressure. No lower extremity swelling. Some bright red blood per rectum. He was discharged from [facility] yesterday after a rectal exam was positive for blood. gilbert yesterday --> 9.8 hgb bum 30 went to protonix BID Per Pt: Leroy reports he was here last month for a GIB last month. He did have a followup with Chelsi Solano last month and was instructed to stop taking Sucralfate after that appointment. Started having bleeding again 4 weeks ago. Once per day, bloody BM. Having black BMs, 1x today 3pm and once mixed with red last night. No lightheadedness or dizziness. Does very easily winded and short of breath, exercise limited. No chest pain, no chest pressure. NO fevers, chills, or sweats. NO abdominal pain, did nt ohave pain with his last GIB. No syncope or presyncope Has a hx of heart failure, double bipass, 1x failed stent prior to bipass. Used to take lasix, was taken off between multiple hospitalizations around 1 months ago while at rehab. DVT in L leg. On eliquis twice Mural thrombus 10 years old, follows w/ Dr. Orona ICD in place, never fired - Went to [place] to have blood work done, was found Had russian fries/meatballs 11am today Medical History: Reviewed Medications: Reviewed Surgical History: Reviewed Family history: Reviewed Allergies: Reviewed Social History: No tobacco or ETOH products Code Status: DNR/DNI Admission Exam (Per Admitting) Constitutional General: A&Ox3. NAD. Cooperative. Pallor is present HEENT: Atraumatic, normocephalic. Vision/hearing grossly Pulm: CTAB A&P. -wheezes, -rales, -rhonchi. Symmetrical chest rise. No increased work of breathing. No respiratory distress. Cardiac: RRR, -mrg. Radial pulses intact and symmetrical. ICD present. JVD is not present Abdominal: Nontender, nondistended, soft. BS present. Extremities: Warm, dry. Pale. No pitting edema is present. Sensation of soft touch in upper and lower extremities is present bilaterally, moves all extremities equally Discharge Data Consultations 03/10/23 15:56 ED Decision to Admit Stat 03/10/23 17:59 Consult Gastroenterology Routine Procedures Performed Operation Date: 03/18/23 17:30 Actual Procedures p Esophagogastroduodenoscopy - Damion Joseph Case, DO Hospital Course (1) Acute blood loss anemia: (2) GI bleed: (3) Gastric AVM: (4) Elevated troponin I level: (5) Hyponatremia: (6) CAD (coronary artery disease): (7) Gout: (8) Atrial fibrillation: Maged Leroy Donahue is a 72 year-old male with history of A Fib, CAD< hypothyroidism, DVT, gout, and gastritis who presented for evaluation of increasing melena over the course of 2 days. Patient has a history of GI bleeding - 1 month ago his Carafate dosing was discontinued and switched to a PPI. Patient was found to have acute blood loss anemia. Received 2U pRBCs last transfusion 03/13. Now HDS with hemoglobin 8.5 at discharge GI bleed Gastric angiodysplasia Acute blood loss anemia Patient with known history of gastric angiodysplasia. He did have an acute bleed in November of 2022. GI consulted, performed EGD 03/13 showed active bleeding in the cardia. Area was cauterized and hemostasis was achieved. Adequately resuscitated with 2U pRBCs. Hemoglobin stable between 8-9. Repeat scope 03/18 confirmed no active bleeding. Found non-bleeding gastric ulcer, clips from past EGDs, and a small hiatal hernia. - Patient treated with 40mg BID of Protonix -- recommend continuing this regimen indefinitely for gastroprotection - Outpatient follow-up scheduled with GI Mild troponin elevation CAD Atrial fibrillation, paroxysmal Patient with extensive cardiac history including history of PAF on Eliquis, aspirin, and metoprolol. With known history of gastric angiodysplasia and acute bleeding patient is scheduled for Watchman device placement. Had previous failure of stent and subsequent double bypass. Follows with [place] [facility]ology. Has HFrEF with an EF of 30-35%. On admission troponin was slightly elevated but stable in the 20s. Limited echo with slight improvement in EF 30-35% with wall motion abnormality. Apical clot seen on 11/2022 ECHO has since resolved. Both Eliquis and aspirin medications were held in the setting of acute bleed, so patient has already been off of them for 9 days. Per conversation with patient's commercial energy auditor, goal is to resume both medications as soon as possible. With history of active bleeding from angiodysplastic lesions, however, there is a high likelihood of repeat bleeding. Would resume anticoagulation cautiously. Given that aspirin is more damaging to the gastric mucosa, recommend deferring re-starting aspirin until the patient's ulcers have had longer to heal. Given the patient's stable hgb and no active bleeding on most recent EGD, Eliquis would likely be safe to resume earlier. -Hold ASA and Eliquis until patient's f/u appointment with PCP on Saturday. -Re-check CBC, if patient's hgb remains stable, resume Eliquis ONCE daily for 1 week -After 1 week on once-daily Eliquis, recheck CBC. If hgb remains stable, increase Eliquis to full dose, TWICE daily. -After 1 week on full dose Eliquis, recheck hgb. If stable, can consider restarting aspirin, as patient will have had ~4 weeks for his ulcers to heal. -Continue metoprolol as prescribed Hyponatremia On the last few days of admission, patient's sodium began to drop from 137 on admit to 128. Urine and plasma osmol w/in normal limits. Likely attributable to low oral intake. Patient was given salt tabs and 1L NS run slowly, which increased his sodium to 129 on day of discharge. Expect improvement with return to normal diet. -Recommend checking BMP at patient's f/u with PCP to confirm continued upward trend. Acute exacerbation of HFrEF Likely in the setting of blood loss anemia and acute illness. Patient was given occasional one-time doses of lasix when volume positive while inpatient, HF improved with diuresis. Knee/Elbow Pain Per patient, he is being treated for gout by his PCP and uses diclofenac gel at home. While inpatient, his symptoms were managed with diclofenac gel. -Patient was placed on indomethacin about 6 months ago, but this was d/kayleigh after his initial GI bleed -Discussed with patient need to limit use of all NSAIDs, particularly during the next few months. Peripheral artery disease. Aspirin held for acute bleeding, see above DM2 Jardiance held while inpatient, resume home regimen on discharge. Discharge Instructions You were admitted to the hospital for a bleed in your stomach. You were given two units of blood and the bleeding area was cauterized during your endoscopy. We did give you some iron infusions as well to help you as your blood counts recover. Your blood count did stabilize. You will need this rechecked early next week. You will also need to follow up with a drill bit sharpener for management of your gastric angiodysplasia. This condition makes it more likely for you to have these bleeds. We stopped your Eliquis which is a blood thinner in the setting of the acute bleed. Would recommend close follow up with your commercial energy auditor as well for management of your atrial fibrillation. During your last few days in the hospital, your sodium level decreased. This should improve with as you resume a regular diet, but we would recommend you have your sodium level checked by your PCP at your next appointment. You should expect to have dark stools for the next few days. This should clear. If it returns after clearing please contact a physician. A discharge summary will be sent to your primary care physician to ensure continuity of care. Please bring this discharge summary with you to your next office appointment so that your provider can review it at that time. Follow-up appointments: Make a follow-up appointment with your PCP within the next week. It is very important that you follow up with them shortly after discharge from the hospital. You will also need to follow up with a drill bit sharpener for management of your gastric angiodysplasia. This condition makes it more likely for you to have these bleeds. You will also need to follow up with your commercial energy auditor. We stopped your Eliquis which is a blood thinner in the setting of the acute bleed. Would recommend close follow up with them as well for management of your atrial fibrillation. Keep all your follow-up appointments as already scheduled. If you cannot make an appointment, notify your provider. Medications: Your medication list has been reviewed and reconciled upon discharge to ensure accuracy and continuity of care. An updated list of all your medications is included with your hospital discharge paperwork. Please review this list closely, and make note of any changes. Eliquis and aspirin were held in the setting of acute bleed, but given your cardiac history they will need to be carefully restarted. * Please HOLD both the Eliquis and the aspirin after discharge * On Saturday, see your PCP and have your labs rechecked. If your hemoglobin is stable at >8, you can restart Eliquis 5mg ONCE daily. * Have your PCP recheck your labs after a week on ONCE daily Eliquis. If your hemoglobin has remained stable, you can increase your Eliquis to 5mg TWICE daily. * After a week on the full dose of Eliquis have your PCP recheck your labs. If your hemoglobin is still stable, you can restart the aspirin. Continue taking the Protonix, 40mg, TWICE daily. Take your medications as instructed; do not skip a dose of your medicines. Make sure all of your doctors know every medicine you are taking (including zklu-lkw-[id number] medicines, vitamins, and supplements). Call your primary care provider before taking any new medicines (including over- the-counter medicines, vitamins, and supplements), because some of these may interact with your current medications, or may make your symptoms worse. Tell your primary care provider if you cannot afford your medications. CONTACT YOUR PRIMARY CARE PROVIDER if you experience any of the following: dark, tarry stools or bright red blood per rectum lightheadedness/dizziness or shortness of breath (all symptoms of low blood count) Difficulty following your treatment plan, or difficulty taking medications CALL 911 OR GO TO THE EMERGENCY DEPARTMENT if you experience any of the following: Sudden, severe abdominal pain or nausea/vomiting Severe chest pain, or chest pain that radiates (moves) to your jaw or arm Sudden, severe shortness of breath or difficulty breathing Thank you for allowing us to participate in your care Supervising Physician Co-Signing Physician Notes I personally examined the patient and verified all britton points of history and exam, discussed case, and agree with decision making with Dr Rain feels up to going home. no new complaints. expresses good understanding vitals noted nad heent nc at mmm breathing unlabored no accessory muscles good effort acute blood loss anemia due to peptic ulcer disease/GI bleedingholding aspirin and Eliquis for now. Protonix twice daily, bleeding fortunately appears to have stopped. stable for home. coronary disease/atrial fibrillationafter discussion with his cardiologistwe will need to resume both the aspirin and the Eliquis over time if he tolerateshis commercial energy auditor felt that the aspirin is a higher priority. however, since asa can cause PUD whereas DOAC will "just" increase bleeding in the context of already active PUD - for now will have CBC checked next week - if clinically stable and Hgb stable - eliquis daily next week. if Hgb/clinically stable 1wk later then escalate to BID. if still clinically/Hgb stable 1wk after escalation of eliquis to full dosing, then resume asa. obviously keep on BID protonix indefinitely. safe/stable for home Resident Activity Tracking Resident Involvement: Resident Care Provided Care Provided: Adult Hospital Medicine
--- NOTE | 2023-03-19 18:35 | Billing Data ---
Date of Service March 19, 2023 Coding Level of Care Code 71734 IN/OBS DISCH 30 MIN/LESS
--- NOTE | 2023-03-22 09:53 | Coding Query ---
CODING QUERY To promote full compliance with coding requirements relating to patient care, provider participation is requested in all cases of ship's carpenter uncertainty. Please assist us with the question(s) below: Coding Question(s): Pt a admitted with GI bleed - . EGD : control of bleed with cautery. GI OP note stated source of bleed Dieulafoy lesion stomach.. Discharge Summary stated AVM of stomach as bleeding source. Please check below the diagnosis , after study that was the source of the GI bleed.. Thank you. Gilberto Arreola [facility] Physician's Response(s): x____ Dieulafoy lesion of stomach with bleed - possibly AVM Stomach with bleed x____ Other: please document: ____PUD also possible EGD at first showed dieulafoy lesion as main finding of significance but GI was suspicious this wasn't the whole culprit, repeat scope sshowed nonbleeding ulcers - which if PUD was present certainly would fit more with the clinical picture and it's possible that PUD simply wasn't seen on first scope Principal Diagnosis: "that condition established after study, to be chiefly responsible for occasioning the admission of the patient to the hospital for care." Co-Existing Principal Diagnosis: "when two or more diagnoses equally meet the criteria for principal diagnosis as determined by the circumstances of admission, diagnostic work up, and/or therapy provided, and the Alphabetic Index, Tabular List, or another coding guideline does not provide sequencing direction, any one of the diagnoses may be sequenced first." "When the physician has documented what appears to be a current diagnosis in the body of the record, but has not included the diagnosis in the final diagnostic statement, the physician should be asked whether the diagnosis should be added." (Source Coding Clinic 2 QTR90. p3-4) MTDD
== END 2023-03-19 16:00 | disposition home or self-care (01) | DRG 377 ==
LOC: ED 14:02 → 4W 16:27 → SUATTDRO 16:27 → 4W 17:22